=== PATIENT | male | born 1950 | race African-American/Black ===

== ENCOUNTER 2020-06-26 09:15 | Outpatient (REF) | payer MEDICARE, SELFPAY ==
[2020-06-26 10:41] LABS: Estimated Average Glucose 160 mg/dL; Hemoglobin A1c % 7.2 %
[2020-06-26 11:00] LABS: Cholesterol 130 mg/dL; HDL Cholesterol 40 mg/dL; LDL Cholesterol Calculated 72 mg/dl; Triglycerides 93 mg/dL
== END 2020-06-26 09:16 | disposition home or self-care (01) ==
LOC: HO.LAB 09:15
PROVIDERS: Visit Provider Internal Medicine
DX: E11.9 Type 2 diabetes mellitus without complications (principal)
CPT/HCPCS: 80061; 83036

== ENCOUNTER 2020-09-22 08:58 | Outpatient (REF) | payer MEDICARE, SELFPAY ==
[2020-09-22 09:58] LABS: Estimated Average Glucose 171 mg/dL; Hemoglobin A1C 192.1125 umol/L; Hemoglobin A1c % 7.6 %
[2020-09-22 10:17] LABS: Alanine Aminotransferase 38 U/L (0-40); Albumin Level 4.3 g/dL (3.5-5.0); Alkaline Phosphatase 92 U/L (39-117); Anion Gap 16 (12-20); Aspartate Amino Transferase 20 U/L (5-37); Bilirubin Total 0.9 mg/dL (0.0-1.0); Blood Urea Nitrogen 19 mg/dL (9-16); Calcium 9.5 mg/dL (8.4-10.2); Carbon Dioxide 25 mmol/L (22-29); Chloride 103 mmol/L (96-108); Cholesterol 143 mg/dL; Estimated Glomerular Filt Rate 52; Glucose Fasting 146 mg/dL (60-99); HDL Cholesterol 39 mg/dL; LDL Cholesterol Calculated 83 mg/dl; Potassium 4.5 mmol/L (3.3-5.1); Sodium 139 mmol/L (135-145); Total Protein 7.4 g/dL (6.5-8.0); Triglycerides 108 mg/dL
[2020-09-22 10:24] LABS: Creatinine Urine 110.71 mg/dL; Microalbum/Creatinine Ratio Ur 82.1 ug/mg cr
== END 2020-09-22 08:59 | disposition home or self-care (01) ==
LOC: HO.LAB 08:58
PROVIDERS: Absent Provider Internal Medicine; PCP Internal Medicine; Visit Provider Nurse Practitioner Gerontology
DX: E11.9 Type 2 diabetes mellitus without complications (principal)
CPT/HCPCS: 36415; 80053; 80061; 82043; 83036

== ENCOUNTER → 2020-09-23 10:11 | Outpatient (BNVA) | payer MEDICARE, SELFPAY | PROVIDERS: PCP Internal Medicine; Visit Provider Urology | DX: Z13.89 Encounter for screening for other disorder (principal) | CPT/HCPCS: 99212 ==

== ENCOUNTER → 2020-10-15 09:06 | Outpatient (BNVA) | payer MEDICARE, SELFPAY | PROVIDERS: PCP Internal Medicine; Visit Provider Nurse Practitioner Gerontology | DX: Z13.89 Encounter for screening for other disorder (principal) | CPT/HCPCS: Q3014 ==

== ENCOUNTER 2021-02-16 09:48 | Outpatient (REF) | payer MEDICARE, SELFPAY ==
[2021-02-16 10:28] LABS: MANUAL DIFF FLAG NO
[2021-02-16 10:31] LABS: Basophils Percent Auto 0.6 % (0-2); Eosinophils Absolute Auto 0.1 X10*3/uL (0.0-0.4); Eosinophils Percent Auto 1.8 % (0-4); Hematocrit 42.4 % (42-52); Imm Gran Abs Auto 0.01 X10*3/uL (0.00-0.03); Imm Gran Pct Auto 0.2 % (0.0-0.4); Lymphocytes Absolute Auto 1.6 X10*3/uL (1.2-4.9); Lymphocytes Percent Auto 25.3 % (20-40); Mean Corpuscular HGB Conc 30.7 g/dl (31.0-36.0); Mean Corpuscular Hemoglobin 22.8 pg (27.0-33.0); Mean Corpuscular Volume 74.5 fL (80-98); Mean Platelet Volume 9.4 fL (9.4-12.4); Monocytes Absolute Auto 0.4 X10*3/uL (0.1-1.2); Neutrophils Percent Auto 65.1 % (45-73); Platelet Count 274 X10*3/uL (160-400); Red Blood Count 5.69 X10*6/uL (4.60-5.80); Red Cell Distribution Width 15.3 % (11.0-16.0); White Blood Count 6.2 X10*3/uL (4.8-10.8)
[2021-02-16 11:00] LABS: Alanine Aminotransferase 41 U/L (0-40); Albumin Level 4.2 g/dL (3.5-5.0); Alkaline Phosphatase 95 U/L (39-117); Anion Gap 15 (12-20); Aspartate Amino Transferase 23 U/L (5-37); Bilirubin Total 0.7 mg/dL (0.0-1.0); Blood Urea Nitrogen 20 mg/dL (9-16); Calcium 9.7 mg/dL (8.4-10.2); Carbon Dioxide 22 mmol/L (22-29); Chloride 106 mmol/L (96-108); Cholesterol 128 mg/dL; Estimated Glomerular Filt Rate 52; Glucose Fasting 153 mg/dL (60-99); HDL Cholesterol 34 mg/dL; LDL Cholesterol Calculated 74 mg/dl; Potassium 4.6 mmol/L (3.3-5.1); Sodium 138 mmol/L (135-145); Total Protein 7.4 g/dL (6.5-8.0); Triglycerides 100 mg/dL
[2021-02-16 11:13] LABS: Thyroid Stimulating Hormone 1.14 uIU/mL (0.32-4.0)
[2021-02-16 11:25] LABS: Prostate Specific Antigen 0.23 ng/mL (<0.05-4.0); Prostate Specific Antigen Scr 0.23 ng/mL (<0.05-4.0)
== END 2021-02-16 09:49 | disposition home or self-care (01) ==
LOC: HO.LAB 09:48
PROVIDERS: Absent Provider Urology; PCP Internal Medicine; Referring Provider Nurse Practitioner Gerontology; Visit Provider Internal Medicine
DX: Z00.00 Encounter for general adult medical examination without abnormal findings (principal); Z12.5 Encounter for screening for malignant neoplasm of prostate; E11.9 Type 2 diabetes mellitus without complications; R35.1 Nocturia; E03.9 Hypothyroidism, unspecified; N13.8 Other obstructive and reflux uropathy; N40.1 Benign prostatic hyperplasia with lower urinary tract symptoms
CPT/HCPCS: 36415; 80053; 80061; 84153; 84443; 85025

== ENCOUNTER → 2021-02-18 10:56 | Outpatient (BNVA) | payer MEDICARE, SELFPAY | PROVIDERS: PCP Internal Medicine; Visit Provider Nurse Practitioner Gerontology | DX: E11.9 Type 2 diabetes mellitus without complications (principal); E78.5 Hyperlipidemia, unspecified; E55.9 Vitamin D deficiency, unspecified; B35.3 Tinea pedis; I10 Essential (primary) hypertension | CPT/HCPCS: 82947; 99212 ==

== ENCOUNTER → 2021-03-24 09:56 | Outpatient (BNVA) | payer MEDICARE, SELFPAY | PROVIDERS: Visit Provider Urology | DX: Z13.89 Encounter for screening for other disorder (principal) | CPT/HCPCS: Q3014 ==

== ENCOUNTER 2021-06-15 10:14 | Outpatient (REF) | payer MEDICARE, SELFPAY ==
[2021-06-15 11:03] LABS: Estimated Average Glucose 171 mg/dL; Hemoglobin A1c % 7.6 %
[2021-06-15 11:36] LABS: Cholesterol 139 mg/dL; HDL Cholesterol 40 mg/dL; LDL Cholesterol Calculated 82 mg/dl; Triglycerides 89 mg/dL
== END 2021-06-15 10:15 | disposition home or self-care (01) ==
LOC: HO.LAB 10:14
PROVIDERS: PCP Internal Medicine; Visit Provider Internal Medicine
DX: E11.9 Type 2 diabetes mellitus without complications (principal)
CPT/HCPCS: 36415; 80061; 83036

== ENCOUNTER → 2021-06-17 08:04 | Outpatient (BNVA) | payer MEDICARE, SELFPAY | PROVIDERS: PCP Internal Medicine; Visit Provider Nurse Practitioner Gerontology | DX: E11.65 Type 2 diabetes mellitus with hyperglycemia (principal); E11.21 Type 2 diabetes mellitus with diabetic nephropathy; E11.42 Type 2 diabetes mellitus with diabetic polyneuropathy; E55.9 Vitamin D deficiency, unspecified; E78.5 Hyperlipidemia, unspecified; I10 Essential (primary) hypertension | CPT/HCPCS: 82947; 99212 ==

== ENCOUNTER 2021-06-17 08:57 | Outpatient (REF) | payer MEDICARE, SELFPAY ==
[2021-06-17 10:46] LABS: Creatinine Urine 125.82 mg/dL; Microalbum/Creatinine Ratio Ur 42.9 ug/mg cr
== END 2021-06-17 08:58 | disposition home or self-care (01) ==
LOC: HO.10HDL 08:57
PROVIDERS: Visit Provider Nurse Practitioner Gerontology
DX: E11.9 Type 2 diabetes mellitus without complications (principal)
CPT/HCPCS: 82043

== ENCOUNTER 2021-07-21 06:47 | Day surgery (SDC) | payer MEDICARE, SELFPAY ==
[2021-07-15 11:43] VITALS: BMI 29.7
--- NOTE | 2021-07-20 09:13 | P.CONAN_ITS ---
Documented by User: Brittany Huff NP 07/20/21 09:14 HPI - Anesthesia Eval Consult details Narrative: 70yo M for Colonoscopy PMFSH Active Problems Active Problems: All Active Problems (Updated 07/15/21 @ 10:02 by Ericka Kwan, LEE) Bladder outlet obstruction (Acute) Bladder diverticulum (Acute) Tinea pedis (Acute) Diabetes mellitus with coincident hypertension (Acute) Erectile dysfunction associated with type 2 diabetes mellitus (Acute) Diabetes mellitus with coincident hypertension (Acute) Type 2 diabetes mellitus with diabetic polyneuropathy (Acute) Type 2 diabetes with nephropathy (Acute) Diabetes type 2, uncontrolled (Acute) Essential hypertension (Acute) Hyperlipidemia LDL goal <100 (Acute) Hypovitaminosis D (Acute) Diabetes mellitus (Acute) Past Medical History Medical History BPH (benign prostatic hyperplasia) COVID-19 vaccine series completed Diabetes mellitus Diabetes mellitus with coincident hypertension Diabetes type 2, uncontrolled Erectile dysfunction Essential hypertension Gallstones GERD (gastroesophageal reflux disease) Hiatal hernia HTN (hypertension) Hyperlipidemia LDL goal <100 Hypovitaminosis D Thalassemia trait 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 Mother No problems noted. Sister Diabetes Brother Diabetes Surgical History Surgical History H/O colonoscopy Social History Social History Household Members: Spouse Housing: House Alcohol intake: never Patient Tobacco Use Status: Never used Tobacco e-Cigarette/Vaping Use: Never Used Second Hand Smoke Exposure: No Use of substances other than those prescribed or required for medical reasons: No Advance Directives: Yes Advance Directives Information Provided: Yes Advance Directives on File: Yes Advance Directives Date on File: 10/04/04 service: Yes Current occupational status: retired Cognitive needs: No Hearing needs: No Vision needs: No Meds Allergies Allergy/AdvReac Type Severity Reaction Status Date / Time SHOAIB Inhibitors Allergy Intermediate swelling Verified 07/21/21 07:37 of tongue Home Medications Medication Instructions Recorded Confirmed Last Taken Type cholecalciferol (vitamin D3) 50 50 mcg PO DAILY 10/15/20 07/15/21 Unknown History mcg (2,000 unit) tablet aspirin 81 mg tablet,delayed 81 mg PO DAILY 07/15/21 07/15/21 07/14/21 History release folic acid 400 mcg tablet 0.4 mg PO DAILY 07/15/21 07/15/21 Unknown History Exam Exam Date and Time: July 20, 2021 0913 Height,Weight and Vital Signs: Height 5 ft 11 in Weight 96.842 kg Pertinent Lab Results Pertinent Lab Results: Laboratory Tests 02/16/21 02/16/21 10:10 10:10 WBC 6.2 Hgb 13.0 L Hct 42.4 Plt Count 274 Sodium 138 Potassium 4.6 Chloride 106 Carbon Dioxide 22 BUN 20 H Creatinine 1.36 Assessment and Plan Assessment Anesthesia Assessment: Chart Reviewed Documented by User: Kathleen Dill MD 07/21/21 08:01 [facility] Past Medical History Medical History BPH (benign prostatic hyperplasia) COVID-19 vaccine series completed Diabetes mellitus Diabetes mellitus with coincident hypertension Diabetes type 2, uncontrolled Erectile dysfunction Essential hypertension Gallstones GERD (gastroesophageal reflux disease) Hiatal hernia HTN (hypertension) Hyperlipidemia LDL goal <100 Hypovitaminosis D Thalassemia trait 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 Mother No problems noted. Sister Diabetes Brother Diabetes Family history of problems with anesthesia: No Surgical History Surgical History H/O colonoscopy History of Problems with Anesthesia: No Social History Social History Household Members: Spouse Housing: House Alcohol intake: never Patient Tobacco Use Status: Never used Tobacco e-Cigarette/Vaping Use: Never Used Second Hand Smoke Exposure: No Use of substances other than those prescribed or required for medical reasons: No Advance Directives: Yes Advance Directives Information Provided: Yes Advance Directives on File: Yes Advance Directives Date on File: 10/04/04 service: Yes Current occupational status: retired Cognitive needs: No Hearing needs: No Vision needs: No Meds Allergies Allergy/AdvReac Type Severity Reaction Status Date / Time SHOAIB Inhibitors Allergy Intermediate swelling Verified 07/21/21 07:37 of tongue Home Medications Medication Instructions Recorded Confirmed Last Taken Type cholecalciferol (vitamin D3) 50 50 mcg PO DAILY 10/15/20 07/15/21 Unknown History mcg (2,000 unit) tablet aspirin 81 mg tablet,delayed 81 mg PO DAILY 07/15/21 07/15/21 07/14/21 History release folic acid 400 mcg tablet 0.4 mg PO DAILY 07/15/21 07/15/21 Unknown History Exam Height,Weight and Vital Signs: Height 5 ft 11 in Weight 96.842 kg Vital Signs Temp Pulse Resp BP Pulse Ox 07/21/21 07:27 98.6 F 75 16 159/78 H 97 Pertinent Lab Results Pertinent Lab Results: Laboratory Tests 02/16/21 02/16/21 10:10 10:10 WBC 6.2 Hgb 13.0 L Hct 42.4 Plt Count 274 Sodium 138 Potassium 4.6 Chloride 106 Carbon Dioxide 22 BUN 20 H Creatinine 1.36 Lab Results 07/21/21 Range/Units 07:35 POC Glucose 151 H (60-115) mg/dL Airway Mallampati Class: II TM Dist: >3cm Neck ROM: Full Partial: Upper and Lower Heart: RRR Lungs: CTAB Assessment and Plan Assessment Anesthesia Assessment: Anesthesia Plan Discussed Final Anesthetic Review Family History of Problems with Anesthesia: No History of Problems with Anesthesia: No NPO: Yes ASA Class: II Final Preanesthetic Review: No Changes in Pt Med Stat, Meds/Allgs Chart Reviewed, Consent Obtained/Reviewed and Anes Risks/Benef Reviewed Patient Risk: Intermediate Procedure Risk: Low Assessment/Block/Sedation in SS: Assess/Block/Sedation-SS Anesthetic Plan Anesthetic Plan: MAC: Disposition: Standard PACU
[2021-07-21 07:27] VITALS: BP 159/78; PULSE 75; RESP 16; TEMP 37; O2SAT 97
[2021-07-21] MEDS: Lactated Ringers 1,000 ML 100 ML IVCONT (07:48)
[2021-07-21 07:53] LABS: Glucose, Whole Blood 151 mg/dL (60-115)
--- NOTE | 2021-07-21 08:14 | MHC.SHP ---
Pre-Procedural Eval Section A Date of Service: 07/21/21 The patient is an INPATIENT: No Changes since office visit: No Cold of Flu in the past 2 weeks, No New Medical Problems, No Changes in Medication and No Patient answered all questions The History & Physical has been completed within 30 days and I have reviewed it.: Yes Section B Chief Complaint: screening Allergies: Allergies Allergy/AdvReac Type Severity Reaction Status Date / Time SHOAIB Inhibitors Allergy Intermediate swelling Verified 07/21/21 07:37 of tongue Plan I have reviewed the history and physical and performed a pertinent physical examination on my patient. No changes have occurred unless specified.
[2021-07-21 08:57] VITALS: BP 116/61; PULSE 60; RESP 16; TEMP 36.4; O2SAT 97
--- NOTE | 2021-07-21 09:02 | P.BOP_ITS ---
Brief Operative Note Date of Service: 07/21/21 Pre-op diagnosis: screening Post-op diagnosis: same Procedure: colonoscopy Surgeon: Cornelio Marlow Anesthesia: MAC Was an Second Class Welder used for this Procedure?: No Estimated blood loss (mL): 0 Pathology: none sent Condition: stable Disposition: PACU
--- NOTE | 2021-07-21 09:10 | OP_ITS ---
SURGEON: Cornelio Marlow MD INDICATIONS: Colon cancer screening and prior history of adenomatous colon polyps. PREOPERATIVE DIAGNOSIS: POSTOPERATIVE DIAGNOSIS: PROCEDURE PERFORMED: Colonoscopy to the terminal ileum. ESTIMATED BLOOD LOSS: COMPLICATIONS: ANESTHESIA: ASSISTANTS: SPECIMENS: MEDICATIONS: Monitored anesthesia care. DESCRIPTION OF PROCEDURE: History and physical performed. The risks and benefits of the procedure were explained to the patient. Informed consent was obtained. The patient was placed in a left lateral decubitus position. A digital rectal exam was performed and was found to be normal. The Olympus pediatric video colonoscope was introduced into the rectum and advanced to the cecum without difficulty. The cecum was identified by transillumination, palpation, and identification of ileocecal valve. Examination was performed and the scope was removed. He tolerated the procedure well and was taken to recovery area in stable condition. FINDINGS: The terminal ileum was examined and appeared normal. The visualized colonic mucosa was within normal limits without evidence of masses or ulcers. No polyps were identified. There was some liquid stool coating the mucosa, which was washed and suctioned. There was mild sigmoid diverticulosis. Retroflexed examination was normal. IMPRESSION: Normal colonoscopy. RECOMMENDATIONS: 1. Follow up as needed. 2. Repeat colonoscopy is recommended in 10 years. This is optional based on the patient's age. MD SOSA Denis/NEPTALI / [id number]
[2021-07-21 09:17] VITALS: BP 139/74; PULSE 60; RESP 16; TEMP 36.4; O2SAT 98
== END 2021-07-21 10:00 | disposition home or self-care (01) ==
PROVIDERS: PCP Internal Medicine; Visit Provider Internal Medicine Gastroenterology
PROC: 0DJD8ZZ Inspection of Lower Intestinal Tract, Via Natural or Artificial Opening Endoscopic (ICD-10-PCS; CPT 45378; principal; 2021-07-21 08:10)
DX: Z12.11 Encounter for screening for malignant neoplasm of colon (principal); Z86.010 Personal history of colon polyps; K57.30 Diverticulosis of large intestine without perforation or abscess without bleeding; K21.9 Gastro-esophageal reflux disease without esophagitis; K44.9 Diaphragmatic hernia without obstruction or gangrene; D56.3 Thalassemia minor; I10 Essential (primary) hypertension; E11.9 Type 2 diabetes mellitus without complications; E78.00 Pure hypercholesterolemia, unspecified; N40.0 Benign prostatic hyperplasia without lower urinary tract symptoms; Z79.84 Long term (current) use of oral hypoglycemic drugs; Z79.82 Long term (current) use of aspirin; Z79.899 Other long term (current) drug therapy
CPT/HCPCS: G0105; 82947

== ENCOUNTER 2021-09-21 08:58 | Outpatient (REF) | payer MEDICARE, SELFPAY ==
[2021-09-21 10:36] LABS: Estimated Average Glucose 174 mg/dL; Hemoglobin A1c % 7.7 %
[2021-09-21 10:38] LABS: Cholesterol 128 mg/dL; Glucose Fasting 162 mg/dL (60-99); HDL Cholesterol 38 mg/dL; LDL Cholesterol Calculated 73 mg/dl; Triglycerides 85 mg/dL
== END 2021-09-21 08:59 | disposition home or self-care (01) ==
LOC: HO.LAB 08:58
PROVIDERS: PCP Internal Medicine; Visit Provider Internal Medicine
DX: Z00.00 Encounter for general adult medical examination without abnormal findings (principal); E11.65 Type 2 diabetes mellitus with hyperglycemia
CPT/HCPCS: 36415; 80061; 82947; 83036

== ENCOUNTER → 2021-09-23 13:32 | Outpatient (BNVA) | payer MEDICARE, SELFPAY | PROVIDERS: PCP Internal Medicine; Visit Provider Urology | DX: N32.0 Bladder-neck obstruction (principal); E11.69 Type 2 diabetes mellitus with other specified complication; N52.1 Erectile dysfunction due to diseases classified elsewhere | CPT/HCPCS: 51798; 99212 ==

== ENCOUNTER → 2021-11-06 07:25 | Outpatient (BNVA) | payer MEDICARE, SELFPAY | PROVIDERS: PCP Internal Medicine; Visit Provider Nurse Practitioner Gerontology | DX: E11.65 Type 2 diabetes mellitus with hyperglycemia (principal); E11.21 Type 2 diabetes mellitus with diabetic nephropathy; E11.42 Type 2 diabetes mellitus with diabetic polyneuropathy; E78.5 Hyperlipidemia, unspecified; E55.9 Vitamin D deficiency, unspecified; I10 Essential (primary) hypertension | CPT/HCPCS: 82947; 99212 ==

== ENCOUNTER 2021-12-22 09:05 | Outpatient (REF) | payer MEDICARE, SELFPAY ==
[2021-12-22 10:37] LABS: Estimated Average Glucose 174 mg/dL; Hemoglobin A1c % 7.7 %
[2021-12-22 11:00] LABS: Cholesterol 121 mg/dL; Glucose Fasting 121 mg/dL (60-99); HDL Cholesterol 34 mg/dL; LDL Cholesterol Calculated 70 mg/dl; Triglycerides 85 mg/dL
== END 2021-12-22 09:06 | disposition home or self-care (01) ==
LOC: HO.LAB 09:05
PROVIDERS: PCP Internal Medicine; Visit Provider Internal Medicine
DX: Z00.00 Encounter for general adult medical examination without abnormal findings (principal); E11.65 Type 2 diabetes mellitus with hyperglycemia
CPT/HCPCS: 36415; 80061; 82947; 83036

== ENCOUNTER 2022-03-16 08:59 | Outpatient (REF) | payer MEDICARE, SELFPAY ==
[2022-03-16 09:12] LABS: MANUAL DIFF FLAG NO
[2022-03-16 09:34] LABS: Basophils Absolute Auto 0.1 X10*3/uL (0.0-0.2); Basophils Percent Auto 0.8 % (0-2); Eosinophils Absolute Auto 0.1 X10*3/uL (0.0-0.4); Eosinophils Percent Auto 1.4 % (0-4); Hematocrit 39.9 % (42.0-52.0); Hemoglobin 12.2 g/dl (14.0-18.0); Imm Gran Abs Auto 0.02 X10*3/uL (0.00-0.03); Imm Gran Pct Auto 0.3 % (0.0-0.4); Lymphocytes Absolute Auto 1.7 X10*3/uL (1.2-4.9); Lymphocytes Percent Auto 24.8 % (20-40); Mean Corpuscular HGB Conc 30.6 g/dl (31.0-36.0); Mean Corpuscular Hemoglobin 22.9 pg (27.0-33.0); Mean Corpuscular Volume 74.9 fL (80.0-98.0); Mean Platelet Volume 9.7 fL (9.4-12.4); Monocytes Absolute Auto 0.5 X10*3/uL (0.1-1.2); Monocytes Percent Auto 7.7 % (2-11); Neutrophils Absolute Auto 4.3 x10*3/uL (2.0-8.3); Platelet Count 300 X10*3/uL (160-400); Red Blood Count 5.33 X10*6/uL (4.60-5.80); Red Cell Distribution Width 15.3 % (11.0-16.0); White Blood Count 6.6 X10*3/uL (4.8-10.8)
[2022-03-16 10:00] LABS: Alanine Aminotransferase 26 U/L (0-40); Albumin Level 4.3 g/dL (3.5-5.0); Alkaline Phosphatase 90 U/L (39-117); Anion Gap 16 (12-20); Aspartate Amino Transferase 19 U/L (5-37); Bilirubin Total 0.8 mg/dL (0.0-1.0); Blood Urea Nitrogen 19 mg/dL (9-16); Calcium 9.6 mg/dL (8.4-10.2); Carbon Dioxide 22 mmol/L (22-29); Chloride 106 mmol/L (96-108); Estimated Glomerular Filt Rate 54; Glucose Fasting 118 mg/dL (60-99); Potassium 4.3 mmol/L (3.3-5.1); Sodium 140 mmol/L (135-145); Total Protein 7.1 g/dL (6.5-8.0)
[2022-03-16 10:21] LABS: Prostate Specific Antigen Scr 0.25 ng/mL (<0.05-4.0)
[2022-03-16 10:27] LABS: Vitamin D 25-OH Total 34.9 ng/mL (>30)
[2022-03-16 10:38] LABS: Creatinine Urine 142.08 mg/dL; Microalbum/Creatinine Ratio Ur 28.1 ug/mg cr
== END 2022-03-16 09:00 | disposition home or self-care (01) ==
LOC: HO.LAB 08:59
PROVIDERS: Absent Provider Nurse Practitioner Gerontology; PCP Internal Medicine; Visit Provider Internal Medicine
DX: Z00.00 Encounter for general adult medical examination without abnormal findings (principal); Z12.5 Encounter for screening for malignant neoplasm of prostate; Z13.0 Encounter for screening for diseases of the blood and blood-forming organs and certain disorders involving the immune mechanism; E66.01 Morbid (severe) obesity due to excess calories; E11.42 Type 2 diabetes mellitus with diabetic polyneuropathy; E55.9 Vitamin D deficiency, unspecified; E11.69 Type 2 diabetes mellitus with other specified complication
CPT/HCPCS: 36415; 80053; 82043; 82306; 84153; 85025

== ENCOUNTER → 2022-04-02 09:57 | Outpatient (BNVA) | payer MEDICARE, SELFPAY | PROVIDERS: PCP Internal Medicine; Visit Provider Urology | DX: N32.0 Bladder-neck obstruction (principal); N32.3 Diverticulum of bladder; N52.9 Male erectile dysfunction, unspecified; R35.1 Nocturia; Z79.899 Other long term (current) drug therapy | CPT/HCPCS: Q3014 ==

== ENCOUNTER 2022-06-29 08:56 | Outpatient (REF) | payer MEDICARE, SELFPAY ==
[2022-06-29 10:14] LABS: Estimated Average Glucose 192 mg/dL; Hemoglobin A1c % 8.3 %
[2022-06-29 10:46] LABS: Alanine Aminotransferase 40 U/L (0-40); Albumin Level 4.2 g/dL (3.5-5.0); Alkaline Phosphatase 100 U/L (39-117); Anion Gap 14 (12-20); Aspartate Amino Transferase 23 U/L (5-37); Bilirubin Total 0.7 mg/dL (0.0-1.0); Blood Urea Nitrogen 19 mg/dL (9-16); Calcium 9.5 mg/dL (8.4-10.2); Carbon Dioxide 25 mmol/L (22-29); Chloride 107 mmol/L (96-108); Cholesterol 130 mg/dL; Estimated Glomerular Filt Rate 58; Glucose Fasting 126 mg/dL (60-99); HDL Cholesterol 39 mg/dL; LDL Cholesterol Calculated 76 mg/dl; Potassium 4.5 mmol/L (3.3-5.1); Sodium 141 mmol/L (135-145); Triglycerides 76 mg/dL
== END 2022-06-29 08:57 | disposition home or self-care (01) ==
LOC: HO.LAB 08:56
PROVIDERS: PCP Internal Medicine; Visit Provider Internal Medicine
DX: Z00.00 Encounter for general adult medical examination without abnormal findings (principal); E11.9 Type 2 diabetes mellitus without complications; E78.5 Hyperlipidemia, unspecified
CPT/HCPCS: 36415; 80053; 80061; 83036

== ENCOUNTER 2022-09-28 09:04 | Outpatient (REF) | payer MEDICARE, SELFPAY ==
[2022-09-28 10:20] LABS: Estimated Average Glucose 186 mg/dL; Hemoglobin A1c % 8.1 %
[2022-09-28 10:44] LABS: Glucose Fasting 175 mg/dL (60-99)
== END 2022-09-28 09:05 | disposition home or self-care (01) ==
LOC: HO.LAB 09:04
PROVIDERS: PCP Internal Medicine; Visit Provider Internal Medicine
DX: E11.65 Type 2 diabetes mellitus with hyperglycemia (principal)
CPT/HCPCS: 36415; 82947; 83036

== ENCOUNTER → 2022-10-07 11:32 | Outpatient (BNVA) | payer MEDICARE, SELFPAY | PROVIDERS: PCP Internal Medicine; Visit Provider Urology | DX: N32.3 Diverticulum of bladder (principal); N32.0 Bladder-neck obstruction | CPT/HCPCS: 51798; 99212 ==

== ENCOUNTER 2022-12-30 09:26 | Outpatient (REF) | payer MEDICARE, SELFPAY ==
[2022-12-30 11:17] LABS: Cholesterol 121 mg/dL; Glucose Fasting 177 mg/dL (60-99); HDL Cholesterol 34 mg/dL; LDL Cholesterol Calculated 73 mg/dl; Triglycerides 70 mg/dL
[2022-12-30 11:23] LABS: Estimated Average Glucose 189 mg/dL; Hemoglobin A1c % 8.2 %
== END 2022-12-30 09:27 | disposition home or self-care (01) ==
LOC: HO.LAB 09:26
PROVIDERS: PCP Internal Medicine; Visit Provider Internal Medicine
DX: R73.9 Hyperglycemia, unspecified (principal); E78.5 Hyperlipidemia, unspecified
CPT/HCPCS: 36415; 80061; 82947; 83036

== ENCOUNTER 2023-04-12 08:36 | Outpatient (AMB) | payer MEDICARE, SELFPAY ==
--- NOTE | 2023-04-12 08:39 | A.OFFVIS_ITS ---
Intake Intake Visit Reasons: 6M PVR Intake Note: Patient is present for Follow Up PVR Urology Med: Finasteride, Tamsulosin, Sildenafil Antibiotic Allergy: None Blood Thinner: Aspirn Pharmacy: [facility] PVR: 0ml Allergies SHOAIB Inhibitors Allergy (Intermediate, Verified 04/12/23 08:40) swelling of tongue Medication List - Last Reconciled 04/12/23 by Tray Farias MD amlodipine 10 mg PO DAILY aspirin 81 mg PO DAILY atorvastatin 20 mg PO DAILY blood sugar diagnostic (FreeStyle Lite Strips) 1 strip miscellaneous BID-TID cholecalciferol (vitamin D3) 50 mcg PO DAILY finasteride 5 mg PO DAILY 90 days folic acid 0.4 mg PO DAILY lancets (FreeStyle Lancets) three times a day losartan 50 mg PO DAILY metformin ER 1,000 mg (2 x 500 mg) PO BID omeprazole 20 mg PO DAILY repaglinide 1-2 tab before lunch, 1-3 tabs before dinner PO once; as directed 90 days tadalafil 5 mg PO DAILY 90 days tamsulosin 0.4 mg PO BEDTIME 90 days terbinafine HCl 1% (Antifungal (terbinafine)) 1 appl topical BID HPI HPI Comments History of Present Illness Details Ramin PEREIRA is a very pleasant male. They are a patient of Dr Casas. . He is seen for the following urologic conditions - lower urinary tract symptoms - erectile dysfunction PVR 0 Negative microscopic hematuria Recommend finasteride Tuesday, Tuesday, Tuesday Switch from sildenafil to daily tadalafil 5 mg Have previously recommended [facility] laser prostatectomy with bladder diverticula Lower Urinary Tract Symptoms: Did well with combination therapy - finasteride, tamsulosin PSA 02/25 0.2, 03/29 0.3 Will continue Nocturia reduced from 1-2 times from 3-4. Current visit is for further evaluation of, lower urinary tract symptoms, predominate obstructive symptoms. Prostate Symptom Score Moderate (9-19), Bother 3. Symptoms include incomplete emptying, weak stream, nocturia (>2), and are improving Erectile dysfunction in setting of diabetes Switch to daily tadalafil Responsive to sildenafil Associated diabetes, and dyslipidemia, and hypertension HBA1c - 12/28 8.2% Microscopic Hematuria: Microscopic hematuria was diagnosed during routine UA - probable UTI. They are here for further evaluation. Relevant medical history for prior , tobacco use and UTI's Radiographic imagin/20 , CT KUB - multiple bladder diverticula, enlarged prostate, cyst on right kidney 2 cm. 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 Mother No problems noted. Sister Diabetes Brother Diabetes Social History Household Members: Spouse Housing: House Alcohol intake: current Alcohol intake frequency: holidays/special occasions only Patient Tobacco Use Status: Never used Tobacco e-Cigarette/Vaping Use: Never Used Second Hand Smoke Exposure: No Advance Directives Date on File: 10/04/04 service: Yes Current occupational status: retired Cognitive needs: No Hearing needs: No Vision needs: Yes Review of Systems Const Denies chills and Denies fever(s) Card Reports no additional complaints and Denies syncope Resp Denies cough GI Denies abdominal pain and Denies heartburn Reports as per HPI and Denies change in libido Neuro Denies syncope Psych Denies change in libido Endo Denies change in libido Physical Exam Const General: cooperative, healthy appearing, comfortable and no acute distress Orientation/consciousness: patient oriented x3 HEENT Face and sinus: Yes normal facial exam Mouth: moist mucous membranes Neck Neck: Yes normal visual inspection, Yes full ROM and Yes trachea midline Chest Chest palpation & inspection: normal inspection of the chest Resp Effort & Inspection: normal respiratory effort, able to speak in complete sentences and no respiratory distress GI Inspection: Yes normal to inspection Back/Spine/Pelvis Cervical Spine: normal cervical lordosis Thoracic/Lumbar Spine: thoracic and lumbar spine normal to inspection Skin General skin exam: no rashes or lesions noted Neuro General: patient oriented x3, gait normal, tone normal and moves all extremities Extrem General: Yes normal to inspection and Yes capillary refill normal Office Procedures Post Void Residual Post Residual Void Post Void Residual (PVR): 0 [id number]-[id number] Void Residual by ultrasound Results AMB Urinalysis, Automated UA Leukoctes 0 Sandhya/uL Last Edit by Jeniffer Morris [facility] on 04/12/23 08:54 UA Nitrite Negative Last Edit by Jeniffer Morris [facility] on 04/12/23 08:54 UA Urobilinogen 0.2 mg/dL Last Edit by Jeniffer Morris [facility] on 04/12/23 08:5 4 UA Protein 15 mg/dL Last Edit by Jeniffer Morris [facility] on 04/12/23 08:54 UA pH 5.5 Last Edit by Jeniffer Morris [facility] on 04/12/23 08:54 UA Blood 0 Sudeep/uL Last Edit by Jeniffer Morris [facility] on 04/12/23 08:54 UA Specific [place] 1.015 Last Edit by Jeniffer Morris [facility] on 04/12/23 08: 54 UA Ketone Negative Last Edit by Jeniffer Morris [facility] on 04/12/23 08:54 UA Bilirubin 1 mg/dL Last Edit by Jeniffer Mroris [facility] on 04/12/23 08:54 UA Glucose 0 mg/dL Last Edit by Jeniffer Morris [facility] on 04/12/23 08:54 Assessment & Plan Assessment & Plan (1) Bladder outlet obstruction: Code(s): N32.0 - Bladder-neck obstruction (2) Erectile dysfunction associated with type 2 diabetes mellitus: Code(s): E11.69 - Type 2 diabetes mellitus with other specified complication; N52.1 - Erectile dysfunction due to diseases classified elsewhere Plan Switch to finasteride Tuesday, Tuesday, Tuesday Switch to daily tadalafil for bladder benefits Orders: Orders AMB Post Void Residual by ultrasound Today N32.0 - Bladder-neck obstruction AMB Urinalysis Automated Today Z13.9 - Encounter for screening, unspecified Medications: New tadalafil 5 mg PO DAILY 90 days 90 tabs 1RF sexual activity E11.69 - Type 2 diabetes mellitus with other specified complication, N52.1 - Erectile dysfunctio n due to diseases classified elsewhere Refilled finasteride 5 mg PO DAILY 90 tabs 1RF 90 days N32.0 - Bladder-neck obstruction Discontinued sildenafil administer 60 minutes before intended activity Discontinued Reason: Patient no longer taking 100 mg PO DAILY 30 days 30 tabs 1RF sexual activity N52.9 - Male erectile dysfunction, unspecified Patient Instructions: Imaging studies, laboratory and physical exam results were discussed and reviewed in detail. No major barriers to patient understanding were identified. An opportunity to ask questions regarding the treatment plan was provided. All questions were answered. The patient expressed understanding and agreement with the above treatment plan. The patient is aware they should contact our office by phone for worsening of their current condition or the appearance of new urologic symptoms. Compliance is encouraged with any medications and followup testing that is ordered. It is a privilege to participate in the urologic care of your patient. If you have any questions or concerns regarding treatment for the above conditions, or other urologic issues, please do not hesitate to contact me. The office telephone contact is [phone]. This note is constructed using voice recognition software. While every effort has been made to ensure accuracy city engineer errors may have been included. Yours sincerely, Dr Tray Farias MD, [facility] - Urology Providers of Expert, Compassionate Care for the Genitourinary System Coding Level of Care Code Est Pt Level 4 (75341) Diagnoses Bladder outlet obstruction N32.0 Erectile dysfunction associated with type 2 diabetes mellitus E11.69; N52.1 CPT Codes Post Residual Void - PVR CPT Code: 22125-Fjja Void Residual by ultrasound ([id number])
== END 2023-04-12 09:01 | disposition home or self-care (01) ==
PROVIDERS: PCP Internal Medicine; Visit Provider Urology
DX: N32.0 Bladder-neck obstruction (principal); E11.69 Type 2 diabetes mellitus with other specified complication; N52.1 Erectile dysfunction due to diseases classified elsewhere; Z13.9 Encounter for screening, unspecified
CPT/HCPCS: 99214

== ENCOUNTER → 2023-04-12 08:36 | Outpatient (BNVA) | payer MEDICARE, SELFPAY | PROVIDERS: Visit Provider Urology | DX: N32.0 Bladder-neck obstruction (principal); E11.69 Type 2 diabetes mellitus with other specified complication; N52.1 Erectile dysfunction due to diseases classified elsewhere | CPT/HCPCS: 51798; 81003; 99212 ==

== ENCOUNTER 2023-04-19 09:22 | Outpatient (REF) | payer MEDICARE, SELFPAY ==
[2023-04-19 10:35] LABS: Estimated Average Glucose 157 mg/dL; Hemoglobin A1c % 7.1 % (<6.0)
[2023-04-19 10:50] LABS: Cholesterol 112 mg/dL (<200); Glucose Fasting 109 mg/dL (60-99); HDL Cholesterol 41 mg/dL (>40); LDL Cholesterol Calculated 58 mg/dL (<100); Triglycerides 68 mg/dL (<150)
== END 2023-04-19 09:23 | disposition home or self-care (01) ==
LOC: HO.LAB 09:22
PROVIDERS: PCP Internal Medicine; Visit Provider Internal Medicine
DX: R73.9 Hyperglycemia, unspecified (principal); E78.5 Hyperlipidemia, unspecified
CPT/HCPCS: 36415; 80061; 82947; 83036

== ENCOUNTER 2023-04-22 09:14 | Outpatient (AMB) | payer MEDICARE, SELFPAY ==
[2023-04-22 09:21] VITALS: BP 138/56; PULSE 65; O2SAT 98; BMI 28.7
--- NOTE | 2023-04-22 09:21 | A.OFFPC_ITS ---
Vital Signs 04/22/23 09:21 Height 5 ft 11 in Weight 206 lb BMI 28.7 BP 138/56 L Blood Pressure Location Lt brachial Position Sitting Pulse 65 Pulse Source Pulse Oximeter Pulse Oximetry (%) 98 Oxygen Delivery Method Room Air Intake Visit Reasons: 3mth f/u - CMP and Microalbumin needed Supervisor Microbiology Technologists: Present Accompanied by: Spouse Allergies SHOAIB Inhibitors Allergy (Intermediate, Verified 04/22/23 09:21) swelling of tongue Medication List - Last Reconciled 04/22/23 by Polo Casas MD amlodipine 10 mg PO DAILY aspirin 81 mg PO DAILY atorvastatin 20 mg PO DAILY blood sugar diagnostic (FreeStyle Lite Strips) 1 strip miscellaneous BID-TID cholecalciferol (vitamin D3) 50 mcg PO DAILY finasteride 5 mg PO DAILY 90 days folic acid 0.4 mg PO DAILY lancets (FreeStyle Lancets) three times a day losartan 50 mg PO DAILY metformin ER 1,000 mg (2 x 500 mg) PO BID omeprazole 20 mg PO DAILY repaglinide 1-2 tab before lunch, 1-3 tabs before dinner PO once; as directed 90 days tadalafil 5 mg PO DAILY 90 days tamsulosin 0.4 mg PO BEDTIME 90 days terbinafine HCl 1% (Antifungal (terbinafine)) 1 appl topical BID Tobacco use date assessed: 10/04/22 Fall risk assessment: No Falls in past year Last assessed Fall Risk: 04/22/23 Dental Screening Dental Screen Date: 04/22/23 Did you have a dental visit in the last 12 months?: Yes Did you have a dental problem in the last 6 months where you did not have access to dental care?: No Was dental information given to patient?: Patient has dentist HPI 3mth f/u - CMP and Microalbumin needed HPI Details HTN hyperlipidemia and DM; stable on rx; doing well [facility] Medical History COVID-19 vaccine series completed HTN (hypertension) Thalassemia trait Hiatal hernia GERD (gastroesophageal reflux disease) Diabetes mellitus with coincident hypertension 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 Mother No problems noted. Sister Diabetes Brother Diabetes Social History Household Members: Spouse Housing: House Alcohol intake: current Alcohol intake frequency: holidays/special occasions only Patient Tobacco Use Status: Never used Tobacco e-Cigarette/Vaping Use: Never Used Second Hand Smoke Exposure: No Advance Directives Date on File: 10/04/04 service: Yes Current occupational status: retired Cognitive needs: No Hearing needs: No Vision needs: Yes Questionnaire PHQ-9 Over the last 2 weeks, how often have you been bothered by any of the following problems? 1. Little interest or pleasure in doing things: not at all 2. Feeling down, depressed, or hopeless: not at all 3. Trouble falling or staying asleep, or sleeping too much: not at all 4. Feeling tired or having little energy: not at all 5. Poor appetite or overeating: not at all 6. Feeling bad about yourself - or that you are a failure or have let yourself or your family down: not at all 7. Trouble concentrating on things, such as reading the newspaper or watching television: not at all 8. Moving or speaking so slowly that other people could have noticed. Or the opposite - being so fidgety or restless that you have been moving around a lot more than usual: not at all 9. Thoughts that you would be better off or of hurting yourself in some way: not at all Total score: 0 Depression Screening Interpretation: Negative 19808 - PHQ-9 Billing: Yes Source: Developed by Drs. Blake Thomas, Audelia Caal, Alexei Johnson and colleagues, with an educational alex from [employer]. Thrive Questionnaire Date Thrive assessed: 10/04/22 AUDIT C Alcohol Use Questionnaire (AUDIT-C) 1. How often do you have a drink containing alcohol?: Monthly or less 2. How many drinks containing alcohol do you have on a typical day when you are drinking?: 1 or 2 3. How often do you have six or more drinks on one occasion?: Never Total Score: 1 Score Reviewed/Action Taken: Yes DREW-7 AMB Questionnaire DREW-7 Date DREW - 7 assessed: 10/04/22 Source: Developed by Drs. Blake Thomas, Audelia Caal, Alexei Johnson and colleagues, with an educational alex from [employer]. Review of Systems Const Denies chills, Denies headache(s) and Denies weight loss ENT Denies headache(s) Card Denies chest pain, Denies syncope, Denies irregular heart rhythm and Denies dyspnea Resp Denies chest congestion, Denies cough and Denies dyspnea GI Denies abdominal pain, Denies change in stool character, Denies nausea and Denies vomiting Musc Denies deformity and Denies joint swelling Neuro Denies syncope and Denies headache(s) Physical exam (Primary Care) Vital Signs: Last Vital Signs Pulse 65 04/22/23 09:21 BP 138/56 L 04/22/23 09:21 Pulse Ox 98 04/22/23 09:21 Oxygen Delivery Method Room Air 04/22/23 09:21 BMI result Body Mass Index 28.7 Tobacco/Smoking Status: Tobacco use Status Tobacco use date assessed 10/04/22 04/22/23 09:22 Patient Tobacco Use Status Never used Tobacco 04/22/23 09:22 e-Cigarette/Vaping Use Never Used 04/22/23 09:22 PHQ-9: PHQ-9 Score PHQ-9: Total score 0 04/22/23 09:22 Depression Screening Interpretation: Negative Thrive Assessment: Date of Thrive Assessment Date Thrive assessed 10/04/22 04/22/23 09:22 Const General: cooperative, comfortable, no acute distress and alert Neck Neck: Yes no lymphadenopathy Thyroid: Thyroid normal Resp Effort & Inspection: normal respiratory effort Auscultation: clear to auscultation bilaterally Percussion: percussion normal Cardio Jugular venous distension: no JVD Palpation: normal PMI Rate: regular rate Rhythm: regular rhythm Heart sounds: S1 normal heart sound present and S2 normal heart sound present GI Inspection: Yes normal to inspection Palpation (GI): No hepatosplenomegaly present Skin General skin exam: no rashes or lesions noted Extrem General: Yes no clubbing, cyanosis or edema Assessment and Plan Assessment & Plan (1) Diabetes mellitus with coincident hypertension: Code(s): E11.9 - Type 2 diabetes mellitus without complications; I10 - Essential (primary) hypertension Plan: stable; same rx (2) Essential hypertension: Code(s): I10 - Essential (primary) hypertension Plan: stable; same rx (3) Hypovitaminosis D: Code(s): E55.9 - Vitamin D deficiency, unspecified Plan: stable same rx Orders: Orders Hemoglobin A1c Today R73.9 - Hyperglycemia, unspecified Lipid Panel Today E78.5 - Hyperlipidemia, unspecified Glucose Fasting Today R73.9 - Hyperglycemia, unspecified Microalbumin, Random (w Creat) Today E11.69 - Type 2 diabetes mellitus with other specified complication, E66.01 - Morbid (severe) obesity due to excess calories Medications: Refilled blood sugar diagnostic (FreeStyle Lite Strips) 1 strip miscellaneous BID-TID 300 strips 3RF E11.9 - Type 2 diabetes mellitus without complications Coding Level of Care Code Est Pt Level 4 (02872) Diagnoses Diabetes mellitus with coincident hypertension E11.9; I10 Essential hypertension I10 Hypovitaminosis D E55.9
== END 2023-04-22 09:51 | disposition home or self-care (01) ==
PROVIDERS: PCP Internal Medicine; Visit Provider Internal Medicine
DX: E11.9 Type 2 diabetes mellitus without complications (principal); I10 Essential (primary) hypertension; E55.9 Vitamin D deficiency, unspecified
CPT/HCPCS: 99214

== ENCOUNTER 2023-07-25 09:20 | Outpatient (REF) | payer MEDICARE, SELFPAY ==
[2023-07-25 09:42] LABS: Estimated Average Glucose 160 mg/dL; Hemoglobin A1c % 7.2 % (<6.0)
[2023-07-25 10:05] LABS: Alanine Aminotransferase 27 U/L (0-40); Albumin Level 4.1 g/dL (3.5-5.0); Alkaline Phosphatase 93 U/L (39-117); Anion Gap 12 (12-20); Aspartate Amino Transferase 19 U/L (5-37); Bilirubin Total 0.8 mg/dL (0.0-1.0); Blood Urea Nitrogen 23 mg/dL (9-16); Calcium 10.1 mg/dL (8.4-10.2); Carbon Dioxide 23 mmol/L (22-29); Chloride 109 mmol/L (96-108); Cholesterol 125 mg/dL (<200); Estimated Glomerular Filt Rate 54; Glucose Fasting 151 mg/dL (60-99); Glucose Random 151 mg/dL (60-115); HDL Cholesterol 41 mg/dL (>40); LDL Cholesterol Calculated 68 mg/dL (<100); Potassium 4.7 mmol/L (3.3-5.1); Sodium 139 mmol/L (135-145); Total Protein 7.5 g/dL (6.5-8.0); Triglycerides 83 mg/dL (<150)
[2023-07-25 10:33] LABS: Microalbum/Creatinine Ratio Ur 51.3 ug/mg cr (<30)
== END 2023-07-25 09:21 | disposition home or self-care (01) ==
LOC: HO.LAB 09:20
PROVIDERS: PCP Internal Medicine; Visit Provider Internal Medicine
DX: E11.65 Type 2 diabetes mellitus with hyperglycemia (principal); E11.69 Type 2 diabetes mellitus with other specified complication; I10 Essential (primary) hypertension; E66.01 Morbid (severe) obesity due to excess calories; E78.5 Hyperlipidemia, unspecified
CPT/HCPCS: 36415; 80053; 80061; 82043; 82570; 83036

== ENCOUNTER 2023-07-27 08:12 | Outpatient (AMB) | payer MEDICARE, SELFPAY ==
[2023-07-27 08:31] VITALS: BP 142/60; PULSE 60; O2SAT 100; BMI 28.4
--- NOTE | 2023-07-27 08:31 | MHC.PC.OV ---
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 Director Of Undergraduate Admissions: Not Required per policy Accompanied by: Self / Same As Patient Allergies SHOABI Inhibitors Allergy (Intermediate, Verified 07/27/23 08:32) swelling of tongue Medication List - Last Reconciled 07/27/23 by Polo Casas MD amlodipine 10 mg PO DAILY aspirin 81 mg PO DAILY atorvastatin 20 mg PO DAILY blood sugar diagnostic (FreeStyle Lite Strips) 1 strip miscellaneous BID-TID cholecalciferol (vitamin D3) 50 mcg PO DAILY finasteride 5 mg PO DAILY 90 days folic acid 0.4 mg PO DAILY lancets (FreeStyle Lancets) three times a day losartan 50 mg PO DAILY metformin ER 1,000 mg (2 x 500 mg) PO BID omeprazole 20 mg PO DAILY repaglinide 1-2 tab before lunch, 1-3 tabs before dinner PO once; as directed 90 days tadalafil 5 mg PO DAILY 90 days tamsulosin 0.4 mg PO BEDTIME 90 days terbinafine HCl 1% (Antifungal (terbinafine)) 1 appl topical BID Tobacco use date assessed: 10/04/22 Fall risk assessment: No Falls in past year Last assessed Fall Risk: 07/27/23 Dental Screening Dental Screen Date: 07/27/23 Did you have a dental visit in the last 12 months?: Yes Did you have a dental problem in the last 6 months where you did not have access to dental care?: No Was dental information given to patient?: Patient has dentist HPI 3mth f/u HPI Details HTN hyperlip and DM; stable; doing well [facility] Medical History COVID-19 vaccine series completed HTN (hypertension) Thalassemia trait Hiatal hernia GERD (gastroesophageal reflux disease) Diabetes mellitus with coincident hypertension 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 Mother No problems noted. Sister Diabetes Brother Diabetes Social History Household Members: Spouse Housing: House Alcohol intake: current Alcohol intake frequency: holidays/special occasions only Patient Tobacco Use Status: Never used Tobacco e-Cigarette/Vaping Use: Never Used Second Hand Smoke Exposure: No Advance Directives Date on File: 10/04/04 service: Yes Current occupational status: retired Cognitive needs: No Hearing needs: No Vision needs: Yes Questionnaire Thrive Questionnaire Date Thrive assessed: 10/04/22 DREW-7 AMB Questionnaire DREW-7 Date DREW - 7 assessed: 10/04/22 Source: Developed by Drs. Blake Thomas, Audelia Caal, Alexei Johnson and colleagues, with an educational alex from [employer]. Review of Systems Const Denies chills, Denies headache(s) and Denies weight loss ENT Denies headache(s) Card Denies chest pain, Denies syncope, Denies irregular heart rhythm and Denies dyspnea Resp Denies chest congestion, Denies cough and Denies dyspnea GI Denies abdominal pain, Denies change in stool character, Denies nausea and Denies vomiting Musc Denies deformity and Denies joint swelling Neuro Denies syncope and Denies headache(s) Physical exam (Primary Care) Vital Signs: Last Vital Signs Pulse 60 07/27/23 08:31 BP 142/60 H 07/27/23 08:31 Pulse Ox 100 07/27/23 08:31 Oxygen Delivery Method Room Air 07/27/23 08:31 BMI result Body Mass Index 28.4 Tobacco/Smoking Status: Tobacco use Status Tobacco use date assessed 10/04/22 07/27/23 08:32 Patient Tobacco Use Status Never used Tobacco 07/27/23 08:32 e-Cigarette/Vaping Use Never Used 07/27/23 08:32 Thrive Assessment: Date of Thrive Assessment Date Thrive assessed 10/04/22 07/27/23 08:32 Const General: cooperative, comfortable, no acute distress and alert Neck Neck: Yes no lymphadenopathy Thyroid: Thyroid normal Resp Effort & Inspection: normal respiratory effort Auscultation: clear to auscultation bilaterally Percussion: percussion normal Cardio Jugular venous distension: no JVD Palpation: normal PMI Rate: regular rate Rhythm: regular rhythm Heart sounds: S1 normal heart sound present and S2 normal heart sound present GI Inspection: Yes normal to inspection Palpation (GI): No hepatosplenomegaly present Skin General skin exam: no rashes or lesions noted Extrem General: Yes no clubbing, cyanosis or edema Assessment and Plan Assessment & Plan (1) Diabetes mellitus with coincident hypertension: Code(s): E11.9 - Type 2 diabetes mellitus without complications; I10 - Essential (primary) hypertension Plan: stable; same rx (2) Essential hypertension: Code(s): I10 - Essential (primary) hypertension Plan: stable; same rx (3) Hyperlipidemia LDL goal <100: Code(s): E78.5 - Hyperlipidemia, unspecified Plan: stable; same rx Orders: Orders Comprehensive Met. Panel 07/25/23 E11.9 - Type 2 diabetes mellitus without complications, I10 - Essential (primary) hypertension Lipid Panel Today E78.5 - Hyperlipidemia, unspecified Glucose Fasting Today R73.9 - Hyperglycemia, unspecified Hemoglobin A1c Today R73.9 - Hyperglycemia, unspecified Medications: Refilled amlodipine 10 mg PO DAILY 90 tabs 1RF I10 - Essential (primary) hypertension losartan 50 mg PO DAILY 90 tabs 1RF metformin ER 1,000 mg (2 x 500 mg) PO BID 360 tabs 1RF E11.9 - Type 2 diabetes mellitus without complications omeprazole 20 mg PO DAILY 90 caps 5RF atorvastatin 20 mg PO DAILY 90 tabs 1RF E78.5 - Hyperlipidemia, unspecified Coding Level of Care Code Est Pt Level 4 (20565) Diagnoses Diabetes mellitus with coincident hypertension E11.9; I10 Essential hypertension I10 Hyperlipidemia LDL goal <100 E78.5
== END 2023-07-27 08:56 | disposition home or self-care (01) ==
PROVIDERS: PCP Internal Medicine; Visit Provider Internal Medicine
DX: E11.65 Type 2 diabetes mellitus with hyperglycemia (principal); I10 Essential (primary) hypertension; E78.5 Hyperlipidemia, unspecified
CPT/HCPCS: 99214

== ENCOUNTER 2023-10-14 08:19 | Outpatient (AMB) | payer MEDICARE, SELFPAY ==
--- NOTE | 2023-10-14 08:29 | MHC.OFFVIS ---
Intake Intake Visit Reasons: 6m/PVR(Med Review) Intake Note: Patient is Present for Follow Up Urology Medication: Finasteride, Tadalafil, Tamsulosin Antibiotic Allergies: None Blood Thinners: Aspirin Confirmed Pharmacy: For custodial medication- [facility] PVR:422 Allergies SHOAIB Inhibitors Allergy (Intermediate, Verified 10/14/23 08:33) swelling of tongue HPI HPI Comments History of Present Illness Details Ramin PEREIRA is a very pleasant male. They are a patient of Dr Casas. . He is seen for the following urologic conditions - lower urinary tract symptoms - erectile dysfunction Prior PVR 0 - Current 400 Negative microscopic hematuria Known large bladder diverticulum Recommend finasteride Tuesday, Tuesday, Tuesday Continue daily tadalafil 5 mg Have previously recommended GreenLight laser prostatectomy with bladder diverticula Lower Urinary Tract Symptoms: Did well with combination therapy - finasteride, tamsulosin PSA 02/25 0.2, 03/29 0.3 Will continue Nocturia reduced from 1-2 times from 3-4. Current visit is for further evaluation of, lower urinary tract symptoms, predominate obstructive symptoms. Prostate Symptom Score Moderate (9-19), Bother 3. Symptoms include incomplete emptying, weak stream, nocturia (>2), and are improving Erectile dysfunction in setting of diabetes Switch to daily tadalafil Responsive to sildenafil Associated diabetes, and dyslipidemia, and hypertension HBA1c - 12/28 8.2% Microscopic Hematuria: Microscopic hematuria was diagnosed during routine UA - probable UTI. They are here for further evaluation. Relevant medical history for prior , tobacco use and UTI's Radiographic imagin/20 , CT KUB - multiple bladder diverticula, enlarged prostate, cyst on right kidney 2 cm. 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 Mother No problems noted. Sister Diabetes Brother Diabetes Social History Household Members: Spouse Housing: House Alcohol intake: current Alcohol intake frequency: holidays/special occasions only Patient Tobacco Use Status: Never used Tobacco e-Cigarette/Vaping Use: Never Used Second Hand Smoke Exposure: No Advance Directives Date on File: 10/04/04 service: Yes Current occupational status: retired Cognitive needs: No Hearing needs: No Vision needs: Yes Review of Systems Const Denies chills and Denies fever(s) Card Reports no additional complaints and Denies syncope Resp Denies cough GI Denies abdominal pain and Denies heartburn Reports as per HPI and Denies change in libido Neuro Denies syncope Psych Denies change in libido Endo Denies change in libido Physical Exam Const General: cooperative, healthy appearing, comfortable and no acute distress Orientation/consciousness: patient oriented x3 HEENT Face and sinus: Yes normal facial exam Mouth: moist mucous membranes Neck Neck: Yes normal visual inspection, Yes full ROM and Yes trachea midline Chest Chest palpation & inspection: normal inspection of the chest Resp Effort & Inspection: normal respiratory effort, able to speak in complete sentences and no respiratory distress GI Inspection: Yes normal to inspection Back/Spine/Pelvis Cervical Spine: normal cervical lordosis Thoracic/Lumbar Spine: thoracic and lumbar spine normal to inspection Skin General skin exam: no rashes or lesions noted Neuro General: patient oriented x3, gait normal, tone normal and moves all extremities Extrem General: Yes normal to inspection and Yes capillary refill normal Assessment & Plan Assessment & Plan (1) Bladder diverticulum: Code(s): N32.3 - Diverticulum of bladder (2) Bladder outlet obstruction: Code(s): N32.0 - Bladder-neck obstruction (3) Urinary retention with incomplete bladder emptying: Code(s): R33.9 - Retention of urine, unspecified Plan Six-month follow-up PVR Orders: Orders AMB Post Void Residual by ultrasound Today N32.0 - Bladder-neck obstruction Patient Instructions: Imaging studies, laboratory and physical exam results were discussed and reviewed in detail. No major barriers to patient understanding were identified. An opportunity to ask questions regarding the treatment plan was provided. All questions were answered. The patient expressed understanding and agreement with the above treatment plan. The patient is aware they should contact our office by phone for worsening of their current condition or the appearance of new urologic symptoms. Compliance is encouraged with any medications and followup testing that is ordered. It is a privilege to participate in the urologic care of your patient. If you have any questions or concerns regarding treatment for the above conditions, or other urologic issues, please do not hesitate to contact me. The office telephone contact is [phone]. This note is constructed using voice recognition software. While every effort has been made to ensure accuracy precipitate washer errors may have been included. Yours sincerely, Dr Tray Farias MD, [facility] - Urology Providers of Expert, Compassionate Care for the Genitourinary System Coding Level of Care Code Est Pt Level 3 (63488) Diagnoses Bladder diverticulum N32.3 Bladder outlet obstruction N32.0 Urinary retention with incomplete bladder emptying R33.9
== END 2023-10-14 09:02 | disposition home or self-care (01) ==
PROVIDERS: PCP Internal Medicine; Visit Provider Urology
DX: N32.3 Diverticulum of bladder (principal); N32.0 Bladder-neck obstruction; R33.9 Retention of urine, unspecified
CPT/HCPCS: 99213

== ENCOUNTER → 2023-10-14 08:19 | Outpatient (BNVA) | payer MEDICARE, SELFPAY | PROVIDERS: PCP Internal Medicine; Visit Provider Urology | DX: N32.3 Diverticulum of bladder (principal); N32.0 Bladder-neck obstruction; R33.9 Retention of urine, unspecified | CPT/HCPCS: 99212 ==

== ENCOUNTER 2023-10-25 09:30 | Outpatient (REF) | payer MEDICARE, SELFPAY ==
[2023-10-25 10:48] LABS: Estimated Average Glucose 192 mg/dL; Hemoglobin A1c % 8.3 % (<6.0)
[2023-10-25 11:05] LABS: Cholesterol 124 mg/dL (<200); Glucose Fasting 170 mg/dL (60-99); HDL Cholesterol 44 mg/dL (>40); LDL Cholesterol Calculated 65 mg/dL (<100); Triglycerides 77 mg/dL (<150)
== END 2023-10-25 09:31 | disposition home or self-care (01) ==
LOC: HO.LAB 09:30
PROVIDERS: PCP Internal Medicine; Visit Provider Internal Medicine
DX: R73.9 Hyperglycemia, unspecified (principal); E78.5 Hyperlipidemia, unspecified
CPT/HCPCS: 36415; 80061; 82947; 83036

== ENCOUNTER 2023-10-31 09:15 | Outpatient (AMB) | payer MEDICARE, SELFPAY ==
[2023-10-31 09:16] VITALS: BP 132/64; PULSE 75; O2SAT 99; BMI 28.6
--- NOTE | 2023-10-31 09:16 | MHC.PC.OV ---
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: Not Required per policy Accompanied by: Self / Same As Patient Allergies SHOAIB Inhibitors Allergy (Intermediate, Verified 10/31/23 09:17) swelling of tongue Medication List - Last Reconciled 10/31/23 by Polo Casas MD amlodipine 10 mg PO DAILY aspirin 81 mg PO DAILY atorvastatin 20 mg PO DAILY blood sugar diagnostic (FreeStyle Lite Strips) 1 strip miscellaneous BID-TID cholecalciferol (vitamin D3) 50 mcg PO DAILY finasteride 5 mg PO DAILY 90 days folic acid 0.4 mg PO DAILY lancets (FreeStyle Lancets) three times a day losartan 50 mg PO DAILY metformin ER 1,000 mg (2 x 500 mg) PO BID omeprazole 20 mg PO DAILY repaglinide 1-2 tab before lunch, 1-3 tabs before dinner PO once; as directed 90 days tadalafil 5 mg PO DAILY 90 days tamsulosin 0.4 mg PO BEDTIME 90 days terbinafine HCl 1% (Antifungal (terbinafine)) 1 appl topical BID Tobacco use date assessed: 10/31/23 Fall risk assessment: No Falls in past year Last assessed Fall Risk: 10/31/23 Dental Screening Dental Screen Date: 10/31/23 Did you have a dental visit in the last 12 months?: Yes Did you have a dental problem in the last 6 months where you did not have access to dental care?: No Was dental information given to patient?: Patient has dentist HPI 3mth f/u HPI Details HTN hyperlip nd DM; ditary indiscretion [facility] Medical History COVID-19 vaccine series completed HTN (hypertension) Thalassemia trait Hiatal hernia GERD (gastroesophageal reflux disease) Diabetes mellitus with coincident hypertension 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 Mother No problems noted. Sister Diabetes Brother Diabetes Social History Household Members: Spouse Housing: House Alcohol intake: current Alcohol intake frequency: holidays/special occasions only Patient Tobacco Use Status: Never used Tobacco e-Cigarette/Vaping Use: Never Used Second Hand Smoke Exposure: No Advance Directives Date on File: 10/04/04 service: Yes Current occupational status: retired Cognitive needs: No Hearing needs: No Vision needs: Yes (glasses) Questionnaire PHQ-9 Over the last 2 weeks, how often have you been bothered by any of the following problems? 1. Little interest or pleasure in doing things: not at all 2. Feeling down, depressed, or hopeless: not at all 3. Trouble falling or staying asleep, or sleeping too much: not at all 4. Feeling tired or having little energy: not at all 5. Poor appetite or overeating: not at all 6. Feeling bad about yourself - or that you are a failure or have let yourself or your family down: not at all 7. Trouble concentrating on things, such as reading the newspaper or watching television: not at all 8. Moving or speaking so slowly that other people could have noticed. Or the opposite - being so fidgety or restless that you have been moving around a lot more than usual: not at all 9. Thoughts that you would be better off or of hurting yourself in some way: not at all Total score: 0 Depression Screening Interpretation: Negative Depression Screening Done: Yes 46641 - PHQ-9 Billing: Yes Source: Developed by Drs. Blake Thomas, Audelia Caal, Alexei Johnson and colleagues, with an educational alex from [employer]. Thrive Questionnaire Date Thrive assessed: 10/31/23 I am a: Patient What is your living situation today?: I have a steady place to live Within the past 12 months, did the food you bought not last and you didn't have the money to get more?: Never true Within the past 12 months, did you worry whether your food would run out before you got money to buy more?: Never true Do you have trouble paying for medicines?: No Do you have trouble getting transportation to medical appointments?: No Do you have trouble paying your heating and electricity bill?: No Do you have trouble taking care of your child, family member or friend?: No Do you have trouble with day-to-day activities such as bathing, preparing meals, shopping, managing finances, etc.?: No Are you currently unemployed and looking for a job?: No Are you interested in more education?: No Please select the resources that you would like help with: None THRIVE Score: 0 AUDIT C Alcohol Use Questionnaire (AUDIT-C) 1. How often do you have a drink containing alcohol?: Monthly or less 2. How many drinks containing alcohol do you have on a typical day when you are drinking?: 1 or 2 3. How often do you have six or more drinks on one occasion?: Never Total Score: 1 Score Reviewed/Action Taken: Yes DREW-7 AMB Questionnaire DREW-7 Date DREW - 7 assessed: 10/31/23 Feeling nervous, anxious, or on edge: 0 = Not at all Not being able to stop or control worryin = Not at all Worrying too much about different things: 0 = Not at all Trouble relaxin = Not at all Being so restless that it is hard to sit still: 0 = Not at all Becoming easily annoyed or irritable: 0 = Not at all Feeling afraid as if something awful might happen: 0 = Not at all Total DREW-7 score (0-4 normal; 5-9 mild; 10-14 moderate; 15-21 severe): 0 Source: Developed by Drs. Blake Thomas, Audelia Caal, Alexei Johnson and colleagues, with an educational alex from [employer]. DREW-7 Assessment Billing DREW-7 Assessment Tool: DREW-7 Assessment 94202 Review of Systems Const Denies chills, Denies headache(s) and Denies weight loss ENT Denies headache(s) Card Denies chest pain, Denies syncope, Denies irregular heart rhythm and Denies dyspnea Resp Denies chest congestion, Denies cough and Denies dyspnea GI Denies abdominal pain, Denies change in stool character, Denies nausea and Denies vomiting Musc Denies deformity and Denies joint swelling Neuro Denies syncope and Denies headache(s) Physical exam (Primary Care) Vital Signs: Last Vital Signs Pulse 75 10/31/23 09:16 BP 132/64 10/31/23 09:16 Pulse Ox 99 10/31/23 09:16 Oxygen Delivery Method Room Air 10/31/23 09:16 BMI result Body Mass Index 28.6 Tobacco/Smoking Status: Tobacco use Status Tobacco use date assessed 10/31/23 10/31/23 09:18 Patient Tobacco Use Status Never used Tobacco 10/31/23 09:18 e-Cigarette/Vaping Use Never Used 10/31/23 09:18 PHQ-9: PHQ-9 Score PHQ-9: Total score 0 10/31/23 09:26 Depression Screening Interpretation: Negative Thrive Assessment: Date of Thrive Assessment Date Thrive assessed 10/31/23 10/31/23 09:18 Const General: cooperative, comfortable, no acute distress and alert Neck Neck: Yes no lymphadenopathy Thyroid: Thyroid normal Resp Effort & Inspection: normal respiratory effort Auscultation: clear to auscultation bilaterally Percussion: percussion normal Cardio Jugular venous distension: no JVD Palpation: normal PMI Rate: regular rate Rhythm: regular rhythm Heart sounds: S1 normal heart sound present and S2 normal heart sound present GI Inspection: Yes normal to inspection Palpation (GI): No hepatosplenomegaly present Skin General skin exam: no rashes or lesions noted Extrem General: Yes no clubbing, cyanosis or edema Assessment and Plan Assessment & Plan (1) Diabetes mellitus with coincident hypertension: Code(s): E11.9 - Type 2 diabetes mellitus without complications; I10 - Essential (primary) hypertension Plan: improve diet (2) Essential hypertension: Code(s): I10 - Essential (primary) hypertension Plan: stable; same rx (3) Hyperlipidemia LDL goal <100: Code(s): E78.5 - Hyperlipidemia, unspecified Plan: stable; same rx Orders: Orders Lipid Panel Today E78.5 - Hyperlipidemia, unspecified Glucose Fasting Today R73.9 - Hyperglycemia, unspecified Hemoglobin A1c Today R73.9 - Hyperglycemia, unspecified Coding Level of Care Code Est Pt Level 4 (34322) Diagnoses Diabetes mellitus with coincident hypertension E11.9; I10 Essential hypertension I10 Hyperlipidemia LDL goal <100 E78.5 Additional Codes DREW-7 Assessment Billing - DREW-7 Assessment Tool: DREW-7 Assessment [id number] ([id number])
== END 2023-10-31 09:50 | disposition home or self-care (01) ==
PROVIDERS: PCP Internal Medicine; Visit Provider Internal Medicine
DX: E11.9 Type 2 diabetes mellitus without complications (principal); I10 Essential (primary) hypertension; E78.5 Hyperlipidemia, unspecified
CPT/HCPCS: 99214

== ENCOUNTER 2024-01-30 09:05 | Outpatient (REF) | payer MEDICARE, SELFPAY ==
[2024-01-30 10:06] LABS: Estimated Average Glucose 180 mg/dL; Hemoglobin A1c % 7.9 % (<6.0)
[2024-01-30 10:29] LABS: Cholesterol 113 mg/dL (<200); Glucose Fasting 146 mg/dL (60-99); HDL Cholesterol 37 mg/dL (>40); LDL Cholesterol Calculated 60 mg/dL (<100); Triglycerides 83 mg/dL (<150)
== END 2024-01-30 09:06 | disposition home or self-care (01) ==
LOC: HO.LAB 09:05
PROVIDERS: PCP Internal Medicine; Visit Provider Internal Medicine
DX: R73.9 Hyperglycemia, unspecified (principal); E78.5 Hyperlipidemia, unspecified
CPT/HCPCS: 36415; 80061; 82947; 83036

== ENCOUNTER 2024-02-03 08:13 | Outpatient (AMB) | payer MEDICARE, SELFPAY ==
[2024-02-03 08:40] VITALS: BP 130/62; PULSE 63; O2SAT 97; BMI 28.7
--- NOTE | 2024-02-03 08:40 | MHC.PC.OV ---
Vital Signs 02/03/24 08:40 Height 5 ft 11 in Weight 206 lb BMI 28.7 BP 130/62 Blood Pressure Location Lt brachial Position Sitting Pulse 63 Pulse Source Pulse Oximeter Pulse Oximetry (%) 97 Oxygen Delivery Method Room Air Intake Visit Reasons: 3mth f/u - see comments Allergies SHOAIB Inhibitors Allergy (Intermediate, Verified 10/31/23 09:17) swelling of tongue Tobacco use date assessed: 10/31/23 Fall risk assessment: No Falls in past year Last assessed Fall Risk: 02/03/24 Dental Screening Dental Screen Date: 10/31/23 HPI 3mth f/u - see comments HPI Details htn hyperlip and dm; improved bs; trying to exercise more PFSH Medical History COVID-19 vaccine series completed HTN (hypertension) Thalassemia trait Hiatal hernia GERD (gastroesophageal reflux disease) Diabetes mellitus with coincident hypertension 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 Mother No problems noted. Sister Diabetes Brother Diabetes Social History Household Members: Spouse Housing: House Alcohol intake: current Alcohol intake frequency: holidays/special occasions only Patient Tobacco Use Status: Never used Tobacco e-Cigarette/Vaping Use: Never Used Second Hand Smoke Exposure: No Advance Directives Date on File: 10/04/04 service: Yes Current occupational status: retired Cognitive needs: No Hearing needs: No Vision needs: Yes (glasses) Questionnaire Thrive Questionnaire Date Thrive assessed: 10/31/23 DREW-7 AMB Questionnaire DREW-7 Date DREW - 7 assessed: 10/31/23 Source: Developed by Drs. Blake Thomas, Audelia Caal, Alexei Johnson and colleagues, with an educational alex from [employer]. Review of Systems Const Denies chills, Denies headache(s) and Denies weight loss ENT Denies headache(s) Card Denies chest pain, Denies syncope, Denies irregular heart rhythm and Denies dyspnea Resp Denies chest congestion, Denies cough and Denies dyspnea GI Denies abdominal pain, Denies change in stool character, Denies nausea and Denies vomiting Musc Denies deformity and Denies joint swelling Neuro Denies syncope and Denies headache(s) Physical exam (Primary Care) Vital Signs: Last Vital Signs Pulse 63 02/03/24 08:40 BP 130/62 02/03/24 08:40 Pulse Ox 97 02/03/24 08:40 Oxygen Delivery Method Room Air 02/03/24 08:40 BMI result Body Mass Index 28.7 Tobacco/Smoking Status: Tobacco use Status Tobacco use date assessed 10/31/23 02/03/24 08:41 Patient Tobacco Use Status Never used Tobacco 02/03/24 08:41 e-Cigarette/Vaping Use Never Used 02/03/24 08:41 Thrive Assessment: Date of Thrive Assessment Date Thrive assessed 10/31/23 02/03/24 08:41 Const General: cooperative, comfortable, no acute distress and alert Neck Neck: Yes no lymphadenopathy Thyroid: Thyroid normal Resp Effort & Inspection: normal respiratory effort Auscultation: clear to auscultation bilaterally Percussion: percussion normal Cardio Jugular venous distension: no JVD Palpation: normal PMI Rate: regular rate Rhythm: regular rhythm Heart sounds: S1 normal heart sound present and S2 normal heart sound present GI Inspection: Yes normal to inspection Palpation (GI): No hepatosplenomegaly present Skin General skin exam: no rashes or lesions noted Extrem General: Yes no clubbing, cyanosis or edema Assessment and Plan Assessment & Plan (1) Diabetes mellitus with coincident hypertension: Code(s): E11.9 - Type 2 diabetes mellitus without complications; I10 - Essential (primary) hypertension Plan: stable; same rx (2) Essential hypertension: Code(s): I10 - Essential (primary) hypertension Plan: stable; same rx (3) Hyperlipidemia LDL goal <100: Code(s): E78.5 - Hyperlipidemia, unspecified Plan: stable ;same rx Orders: Orders Lipid Panel Today Z13.220 - Encounter for screening for lipoid disorders Hemoglobin A1c Today R73.9 - Hyperglycemia, unspecified Glucose Fasting Today R73.9 - Hyperglycemia, unspecified Medications: Refilled losartan 50 mg PO DAILY 90 tabs 1RF amlodipine 10 mg PO DAILY 90 tabs 1RF I10 - Essential (primary) hypertension atorvastatin 20 mg PO DAILY 90 tabs 1RF E78.5 - Hyperlipidemia, unspecified metformin ER 1,000 mg (2 x 500 mg) PO BID 360 tabs 1RF E11.9 - Type 2 diabetes mellitus without complications Coding Level of Care Code Est Pt Level 4 (35501) Diagnoses Diabetes mellitus with coincident hypertension E11.9; I10 Essential hypertension I10 Hyperlipidemia LDL goal <100 E78.5
== END 2024-02-03 09:14 | disposition home or self-care (01) ==
PROVIDERS: PCP Internal Medicine; Visit Provider Internal Medicine
DX: E11.69 Type 2 diabetes mellitus with other specified complication (principal); I10 Essential (primary) hypertension; E78.5 Hyperlipidemia, unspecified
CPT/HCPCS: 99214

== ENCOUNTER 2024-03-16 10:17 | Outpatient (AMB) | payer MEDICARE, SELFPAY ==
[2024-03-16 10:23] VITALS: BP 152/62; PULSE 77; O2SAT 97; BMI 28.9
--- NOTE | 2024-03-16 10:23 | MHC.PC.OV ---
Vital Signs 03/16/24 10:23 Height 5 ft 11 in Weight 207 lb BMI 28.9 BP 152/62 H Blood Pressure Location Lt brachial Position Sitting Pulse 77 Pulse Source Pulse Oximeter Pulse Oximetry (%) 97 Oxygen Delivery Method Room Air Intake Visit Reasons: Pain Right side Allergies SHOAIB Inhibitors Allergy (Intermediate, Verified 03/16/24 10:24) swelling of tongue Medication List - Last Reconciled 03/16/24 by Polo Casas MD amlodipine 10 mg PO DAILY aspirin 81 mg PO DAILY atorvastatin 20 mg PO DAILY blood sugar diagnostic (FreeStyle Lite Strips) 1 strip miscellaneous BID-TID cholecalciferol (vitamin D3) 50 mcg PO DAILY finasteride 5 mg PO DAILY 90 days folic acid 0.4 mg PO DAILY lancets (FreeStyle Lancets) three times a day losartan 50 mg PO DAILY metformin ER 1,000 mg (2 x 500 mg) PO BID omeprazole 20 mg PO DAILY repaglinide 1-2 tab before lunch, 1-3 tabs before dinner PO once; as directed 90 days tadalafil 5 mg PO DAILY 90 days tamsulosin 0.4 mg PO BEDTIME 90 days terbinafine HCl 1% (Antifungal (terbinafine)) 1 appl topical BID Tobacco use date assessed: 10/31/23 Fall risk assessment: No Falls in past year Last assessed Fall Risk: 03/16/24 Dental Screening Dental Screen Date: 10/31/23 HPI Pain Right side HPI Details right sided abd pain for 2 weeks; contant; no n/v or changes in bms; eating well COUNT INCLUDES THE [facility] Medical History COVID-19 vaccine series completed HTN (hypertension) Thalassemia trait Hiatal hernia GERD (gastroesophageal reflux disease) Diabetes mellitus with coincident hypertension 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 Mother No problems noted. Sister Diabetes Brother Diabetes Social History Household Members: Spouse Housing: House Alcohol intake: current Alcohol intake frequency: holidays/special occasions only Patient Tobacco Use Status: Never used Tobacco Tobacco use type: Cigarette e-Cigarette/Vaping Use: Never Used Second Hand Smoke Exposure: No Advance Directives Date on File: 10/04/04 service: Yes Current occupational status: retired Cognitive needs: No Hearing needs: No Vision needs: Yes (glasses) Questionnaire PHQ-9 Over the last 2 weeks, how often have you been bothered by any of the following problems? 1. Little interest or pleasure in doing things: not at all 2. Feeling down, depressed, or hopeless: not at all 3. Trouble falling or staying asleep, or sleeping too much: not at all 4. Feeling tired or having little energy: not at all 5. Poor appetite or overeating: not at all 6. Feeling bad about yourself - or that you are a failure or have let yourself or your family down: not at all 7. Trouble concentrating on things, such as reading the newspaper or watching television: not at all 8. Moving or speaking so slowly that other people could have noticed. Or the opposite - being so fidgety or restless that you have been moving around a lot more than usual: not at all 9. Thoughts that you would be better off or of hurting yourself in some way: not at all Total score: 0 Depression Screening Interpretation: Negative Depression Screening Done: Yes 97794 - PHQ-9 Billing: Yes Source: Developed by Drs. Blake Thomas, Audelia Caal, Alexei Johnson and colleagues, with an educational alex from [employer]. Thrive Questionnaire Date Thrive assessed: 10/31/23 AUDIT C Alcohol Use Questionnaire (AUDIT-C) 1. How often do you have a drink containing alcohol?: Monthly or less 2. How many drinks containing alcohol do you have on a typical day when you are drinking?: 1 or 2 3. How often do you have six or more drinks on one occasion?: Never Total Score: 1 Score Reviewed/Action Taken: Yes DREW-7 AMB Questionnaire DREW-7 Date DREW - 7 assessed: 10/31/23 Source: Developed by Drs. Blake Thomas, Audelia Caal, Alexei Johnson and colleagues, with an educational alex from [employer]. Review of Systems Const Denies chills, Denies headache(s) and Denies weight loss ENT Denies headache(s) Card Denies chest pain, Denies syncope, Denies irregular heart rhythm and Denies dyspnea Resp Denies chest congestion, Denies cough and Denies dyspnea GI Denies change in stool character, Denies nausea and Denies vomiting Musc Denies deformity and Denies joint swelling Neuro Denies syncope and Denies headache(s) Physical exam (Primary Care) Vital Signs: Last Vital Signs Pulse 77 03/16/24 10:23 BP 152/62 H 03/16/24 10:23 Pulse Ox 97 03/16/24 10:23 Oxygen Delivery Method Room Air 03/16/24 10:23 BMI result Body Mass Index 28.9 Tobacco/Smoking Status: Tobacco use Status Tobacco use date assessed 10/31/23 03/16/24 10:27 Patient Tobacco Use Status Never used Tobacco 03/16/24 10:27 Tobacco use type Cigarette 03/16/24 10:27 e-Cigarette/Vaping Use Never Used 03/16/24 10:27 PHQ-9: PHQ-9 Score PHQ-9: Total score 0 03/16/24 10:27 Depression Screening Interpretation: Negative Thrive Assessment: Date of Thrive Assessment Date Thrive assessed 10/31/23 03/16/24 10:27 Const General: cooperative, comfortable, no acute distress and alert Neck Neck: Yes no lymphadenopathy Thyroid: Thyroid normal Resp Effort & Inspection: normal respiratory effort Auscultation: clear to auscultation bilaterally Percussion: percussion normal Cardio Jugular venous distension: no JVD Palpation: normal PMI Rate: regular rate Rhythm: regular rhythm Heart sounds: S1 normal heart sound present and S2 normal heart sound present GI Inspection: Yes normal to inspection Palpation (GI): No hepatosplenomegaly present Skin General skin exam: no rashes or lesions noted Extrem General: Yes no clubbing, cyanosis or edema Assessment and Plan Assessment & Plan (1) Right sided abdominal pain: Code(s): R10.9 - Unspecified abdominal pain Plan: labs and ct Orders: Orders Complete Blood Count Auto Diff Today Z13.0 - Encounter for screening for diseases of the blood and blood-forming organs and certain disorders involving the immune mechanism Basic Metabolic Panel Today R10.9 - Unspecified abdominal pain CT abdomen wo IV con Today R10.9 - Unspecified abdominal pain Coding Level of Care Code Est Pt Level 3 (48589) Diagnoses Right sided abdominal pain R10.9
== END 2024-03-16 10:53 | disposition home or self-care (01) ==
PROVIDERS: PCP Internal Medicine; Visit Provider Internal Medicine
DX: R10.9 Unspecified abdominal pain (principal)
CPT/HCPCS: 99213

== ENCOUNTER 2024-03-16 10:57 | Outpatient (REF) | payer MEDICARE, SELFPAY ==
[2024-03-16 11:07] LABS: MANUAL DIFF FLAG NO
[2024-03-16 11:36] LABS: Basophils Absolute Auto 0.1 X10*3/uL (0.0-0.2); Basophils Percent Auto 0.8 % (0-2); Eosinophils Absolute Auto 0.1 X10*3/uL (0.0-0.4); Eosinophils Percent Auto 0.9 % (0-4); Hemoglobin 11.8 g/dl (14.0-18.0); Imm Gran Abs Auto 0.02 X10*3/uL (0.00-0.03); Imm Gran Pct Auto 0.3 % (0.0-0.4); Lymphocytes Absolute Auto 1.4 X10*3/uL (1.2-4.9); Lymphocytes Percent Auto 18.8 % (20-40); Mean Corpuscular HGB Conc 31.1 g/dl (31.0-36.0); Mean Corpuscular Volume 74.2 fL (80.0-98.0); Mean Platelet Volume 9.9 fL (9.4-12.4); Monocytes Absolute Auto 0.7 X10*3/uL (0.1-1.2); Monocytes Percent Auto 9.1 % (2-11); Neutrophils Absolute Auto 5.3 x10*3/uL (2.0-8.3); Neutrophils Percent Auto 70.1 % (45-73); Platelet Count 302 X10*3/uL (160-400); Red Blood Count 5.12 X10*6/uL (4.60-5.80); Red Cell Distribution Width 15.3 % (11.0-16.0); White Blood Count 7.6 X10*3/uL (4.8-10.8)
[2024-03-16 12:09] LABS: Estimated Average Glucose 177 mg/dL; Hemoglobin A1c % 7.8 % (<6.0)
[2024-03-16 13:58] LABS: Anion Gap 13 (12-20); Blood Urea Nitrogen 14 mg/dL (9-16); Calcium 9.7 mg/dL (8.4-10.2); Carbon Dioxide 22 mmol/L (22-29); Chloride 108 mmol/L (96-108); Cholesterol 109 mg/dL (<200); Estimated Glomerular Filt Rate > 60; Glucose Fasting 213 mg/dL (60-99); HDL Cholesterol 42 mg/dL (>40); LDL Cholesterol Calculated 49 mg/dL (<100); Potassium 4.3 mmol/L (3.3-5.1); Sodium 139 mmol/L (135-145); Triglycerides 92 mg/dL (<150)
== END 2024-03-16 10:58 | disposition home or self-care (01) ==
LOC: HO.LAB 10:57
PROVIDERS: PCP Internal Medicine; Visit Provider Internal Medicine
DX: Z13.0 Encounter for screening for diseases of the blood and blood-forming organs and certain disorders involving the immune mechanism (principal); Z13.220 Encounter for screening for lipoid disorders; R73.9 Hyperglycemia, unspecified
CPT/HCPCS: 36415; 80048; 80061; 83036; 85025

== ENCOUNTER 2024-04-17 10:38 | Outpatient (AMB) | payer MEDICARE, SELFPAY ==
--- NOTE | 2024-04-17 10:56 | A.OFFVIS_ITS ---
Intake Visit Reasons: 6M Follow up-PVR Intake Note: Patient is Present for PVR/ Urology Med: Tamsulosin, Finasteride, Tadalafil Antibiotic Allergy: None Blood Thinner: Aspirin Recent A1C: 7.8 Last PSA: 03/2022 0.25 Last PVR: 422ml Todays PVR: Chiropractic Assistant Required: No Accompanied by: Self / Same As Patient Allergies SHOAIB Inhibitors Allergy (Intermediate, Verified 04/17/24 11:14) swelling of tongue Medication List - Last Reconciled 04/17/24 by Tray Farias MD amlodipine 10 mg PO DAILY aspirin 81 mg PO DAILY atorvastatin 20 mg PO DAILY blood sugar diagnostic (FreeStyle Lite Strips) 1 strip miscellaneous BID-TID cholecalciferol (vitamin D3) 50 mcg PO DAILY finasteride 5 mg PO DAILY 90 days folic acid 0.4 mg PO DAILY lancets (FreeStyle Lancets) three times a day losartan 50 mg PO DAILY metformin ER 1,000 mg (2 x 500 mg) PO BID omeprazole 20 mg PO DAILY repaglinide 1-2 tab before lunch, 1-3 tabs before dinner PO once; as directed 90 days tadalafil 5 mg PO DAILY 90 days tamsulosin 0.4 mg PO BEDTIME 90 days terbinafine HCl 1% (Antifungal (terbinafine)) 1 appl topical BID HPI Comments Details: Ramin PEREIRA is a very pleasant male. They are a patient of Dr Casas. . He is seen for the following urologic conditions - lower urinary tract symptoms - erectile dysfunction Current PVR 140 Known large bladder diverticulum Remains on finasteride Tuesday, Tuesday, Tuesday - Continue daily tadalafil 5 mg Have previously recommended GreenLight laser prostatectomy with bladder diverticula laser Would continue to follow Lower Urinary Tract Symptoms: Did well with combination therapy - finasteride, tamsulosin PSA 02/25 0.2, 03/29 0.3 Will continue Nocturia reduced from 1-2 times from 3-4. Current visit is for further evaluation of, lower urinary tract symptoms, predominate obstructive symptoms. Prostate Symptom Score Moderate (9-19), Bother 3. Symptoms include incomplete emptying, weak stream, nocturia (>2), and are improving Erectile dysfunction in setting of diabetes Switch to daily tadalafil Responsive to sildenafil Associated diabetes, and dyslipidemia, and hypertension HBA1c - 12/28 8.2% Microscopic Hematuria: Microscopic hematuria was diagnosed during routine UA - probable UTI. They are here for further evaluation. Relevant medical history for prior , tobacco use and UTI's Radiographic imagin/20 , CT KUB - multiple bladder diverticula, enlarged prostate, cyst on right kidney 2 cm. 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 Mother No problems noted. Sister Diabetes Brother Diabetes Social History Household Members: Spouse Housing: House Alcohol intake: current Alcohol intake frequency: holidays/special occasions only Patient Tobacco Use Status: Never used Tobacco Tobacco use type: Cigarette e-Cigarette/Vaping Use: Never Used Second Hand Smoke Exposure: No Advance Directives Date on File: 10/04/04 service: Yes Current occupational status: retired Cognitive needs: No Hearing needs: No Vision needs: Yes (glasses) Review of Systems Const Denies chills and Denies fever(s) Card Reports no additional complaints and Denies syncope Resp Denies cough GI Denies abdominal pain and Denies heartburn Reports as per HPI and Denies change in libido Neuro Denies syncope Psych Denies change in libido Endo Denies change in libido Physical Exam Const General: cooperative, healthy appearing, comfortable and no acute distress Orientation/consciousness: patient oriented x3 HEENT Face and sinus: Yes normal facial exam Mouth: moist mucous membranes Neck Neck: Yes normal visual inspection, Yes full ROM and Yes trachea midline Chest Chest palpation & inspection: normal inspection of the chest Resp Effort & Inspection: normal respiratory effort, able to speak in complete sentences and no respiratory distress GI Inspection: Yes normal to inspection Back/Spine/Pelvis Cervical Spine: normal cervical lordosis Thoracic/Lumbar Spine: thoracic and lumbar spine normal to inspection Skin General skin exam: no rashes or lesions noted Neuro General: patient oriented x3, gait normal, tone normal and moves all extremities Extrem General: Yes normal to inspection and Yes capillary refill normal Assessment & Plan Assessment & Plan (1) Urinary retention with incomplete bladder emptying: Code(s): R33.9 - Retention of urine, unspecified Category: Medical (2) Erectile dysfunction associated with type 2 diabetes mellitus: Code(s): E11.69 - Type 2 diabetes mellitus with other specified complication; N52.1 - Erectile dysfunction due to diseases classified elsewhere Category: Medical (3) Bladder outlet obstruction: Code(s): N32.0 - Bladder-neck obstruction Category: Medical Plan Six-month follow-up PVR Orders: Orders AMB Post Void Residual by ultrasound Today R33.9 - Retention of urine, unspecified Medications: Refilled tadalafil 5 mg PO DAILY 90 tabs 1RF sexual activity 90 days E11.69 - Type 2 diabetes mellitus with other specified complication, N52.1 - Erectile dysfunction due to diseases classified elsewhere Patient Instructions: Imaging studies, laboratory and physical exam results were discussed and reviewed in detail. No major barriers to patient understanding were identified. An opportunity to ask questions regarding the treatment plan was provided. All questions were answered. The patient expressed understanding and agreement with the above treatment plan. The patient is aware they should contact our office by phone for worsening of their current condition or the appearance of new urologic symptoms. Compliance is encouraged with any medications and followup testing that is ordered. It is a privilege to participate in the urologic care of your patient. If you have any questions or concerns regarding treatment for the above conditions, or other urologic issues, please do not hesitate to contact me. The office telephone contact is [phone]. This note is constructed using voice recognition software. While every effort has been made to ensure accuracy talk show host errors may have been included. Yours sincerely, Dr Tray Farias MD, [facility] - Urology Providers of Expert, Compassionate Care for the Genitourinary System Coding Level of Care Code Est Pt Level 3 (90741) Diagnoses Urinary retention with incomplete bladder emptying R33.9 Erectile dysfunction associated with type 2 diabetes mellitus E11.69; N52.1 Bladder outlet obstruction N32.0
== END 2024-04-17 11:34 | disposition home or self-care (01) ==
PROVIDERS: PCP Internal Medicine; Visit Provider Urology
DX: R33.9 Retention of urine, unspecified (principal); E11.69 Type 2 diabetes mellitus with other specified complication; N52.1 Erectile dysfunction due to diseases classified elsewhere; N32.0 Bladder-neck obstruction
CPT/HCPCS: 99213

== ENCOUNTER → 2024-04-17 10:38 | Outpatient (BNVA) | payer MEDICARE, SELFPAY | PROVIDERS: PCP Internal Medicine; Visit Provider Urology | DX: N32.0 Bladder-neck obstruction (principal); E11.69 Type 2 diabetes mellitus with other specified complication; N52.1 Erectile dysfunction due to diseases classified elsewhere; R33.9 Retention of urine, unspecified | CPT/HCPCS: 99212 ==

== ENCOUNTER 2024-04-24 07:58 | Outpatient (REF) | payer MEDICARE, SELFPAY ==
--- NOTE | ~2024-04-24 | CT_ITS ---
EXAMINATION: CT ABDOMEN WITHOUT CONTRAST CLINICAL INFORMATION: Abdominal pain COMPARISON: 09/18/2019 TECHNIQUE: Contiguous axial thin section helical images of the abdomen were performed without contrast. The data set was reformatted in the coronal and sagittal planes and reviewed on an independent workstation. This CT examination was performed using dose optimization techniques as appropriate, variously including the following: *Automated exposure control *Adjustment of mA and/or kV according to patient size (this includes techniques or standardized protocols for targeted exams where dose is matched to indication/reason for exam; i.e. extremities or head) *Use of iterative reconstruction technique DLP: 453 mGy-cm FINDINGS: LUNG BASES: The visualized lung bases are unremarkable. Punctate granuloma present at the left lung base. LIVER, GALLBLADDER, AND BILIARY TREE: The liver is normal in size, shape, and attenuation. No focal hepatic lesion or biliary ductal dilatation is present. The gallbladder is grossly abnormal with a thickened wall and soft tissue density extending off the fundus (3:51 and 4:154). No gallstones are seen.. PANCREAS: Unremarkable. SPLEEN: Unremarkable. ADRENAL GLANDS: Unremarkable. KIDNEYS AND URETERS: The kidneys are normal in size, shape, and attenuation. No hydronephrosis, hydroureter, or calculi seen. No perinephric stranding. A benign 2 cm left upper pole Bosniak class I renal cyst is again noted which requires no additional imaging or follow up. No solid renal masses are seen. GASTROINTESTINAL TRACT: The included small and large bowel are unremarkable aside from colonic diverticulosis without diverticulitis. Some high density presumed pills are seen in the small bowel. The appendix is unremarkable. ABDOMINAL WALL: No significant hernia is appreciated. LYMPH NODES: Normal. VASCULAR: Calcific atherosclerotic changes are present in the aorta and iliac vessels. There is no evidence of an abdominal aortic aneurysm. PELVIS: The pelvis is only partially included on this abdominal CT and the bladder is distended with a thickened wall similar to the 09/18/2019 study. OSSEOUS STRUCTURES: Degenerative changes are seen at L5-S1. No bony destructive lesions. CT/CT abdomen wo IV con IMPRESSION: 1. Grossly abnormal gallbladder with a thickened wall and soft tissue density extending off the fundus. Ultrasound is recommended for further evaluation. Differential diagnosis would include gallbladder neoplasm along with adenomyomatosis or possibly cholecystitis with stones not visible on CT. 2. Incidental note made of colonic diverticulosis without diverticulitis and degenerative changes L5-S1. Fleischner guidelines were followed. Electronically signed by: Gurpreet Ann MD 04/24/2024 03:22 PM EDT RP
== END 2024-04-24 07:59 | disposition home or self-care (01) ==
LOC: HO.CT 07:58
PROVIDERS: PCP Internal Medicine; Visit Provider Internal Medicine
DX: R10.9 Unspecified abdominal pain (principal)
CPT/HCPCS: 74150

== ENCOUNTER 2024-05-22 10:16 | Outpatient (AMB) | payer MEDICARE, SELFPAY ==
[2024-05-22 10:19] VITALS: BP 142/70; PULSE 81; O2SAT 94; BMI 28.7
--- NOTE | 2024-05-22 10:19 | MHC.PC.OV ---
Vital Signs 05/22/24 10:19 Height 5 ft 11 in Weight 206 lb BMI 28.7 BP 142/70 H Blood Pressure Location Lt brachial Position Sitting Pulse 81 Pulse Source Pulse Oximeter Pulse Oximetry (%) 94 Oxygen Delivery Method Room Air Intake Visit Reasons: CT Results Intake Note: Patient requesting for refills to be built into his prescriptions. 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 Accompanied by: Self / Same As Patient Allergies SHOAIB Inhibitors Allergy (Intermediate, Verified 05/22/24 10:20) swelling of tongue Medication List - Last Reconciled 05/22/24 by Polo Casas MD amlodipine 10 mg PO DAILY aspirin 81 mg PO DAILY atorvastatin 20 mg PO DAILY blood sugar diagnostic (FreeStyle Lite Strips) 1 strip miscellaneous BID-TID cholecalciferol (vitamin D3) 50 mcg PO DAILY finasteride 5 mg PO DAILY 90 days folic acid 0.4 mg PO DAILY lancets (FreeStyle Lancets) three times a day losartan 50 mg PO DAILY metformin ER 1,000 mg (2 x 500 mg) PO BID omeprazole 20 mg PO DAILY repaglinide 1-2 tab before lunch, 1-3 tabs before dinner PO once; as directed 90 days tadalafil 5 mg PO DAILY 90 days tamsulosin 0.4 mg PO BEDTIME 90 days terbinafine HCl 1% (Antifungal (terbinafine)) 1 appl topical BID Tobacco use date assessed: 10/31/23 Dental Screening Dental Screen Date: 10/31/[address] Results HPI Details thickened inflamed GB on CT; currently feels well; has DM PFSH Medical History COVID-19 vaccine series completed HTN (hypertension) Thalassemia trait Hiatal hernia GERD (gastroesophageal reflux disease) Diabetes mellitus with coincident hypertension 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 Mother No problems noted. Sister Diabetes Brother Diabetes Social History Household Members: Spouse Housing: House Alcohol intake: current Alcohol intake frequency: holidays/special occasions only Patient Tobacco Use Status: Never used Tobacco Tobacco use type: Cigarette e-Cigarette/Vaping Use: Never Used Second Hand Smoke Exposure: No Advance Directives Date on File: 10/04/04 service: Yes Current occupational status: retired Cognitive needs: No Hearing needs: No Vision needs: Yes (glasses) Questionnaire PHQ-9 Over the last 2 weeks, how often have you been bothered by any of the following problems? 1. Little interest or pleasure in doing things: not at all 2. Feeling down, depressed, or hopeless: not at all 3. Trouble falling or staying asleep, or sleeping too much: not at all 4. Feeling tired or having little energy: not at all 5. Poor appetite or overeating: not at all 6. Feeling bad about yourself - or that you are a failure or have let yourself or your family down: not at all 7. Trouble concentrating on things, such as reading the newspaper or watching television: not at all 8. Moving or speaking so slowly that other people could have noticed. Or the opposite - being so fidgety or restless that you have been moving around a lot more than usual: not at all 9. Thoughts that you would be better off or of hurting yourself in some way: not at all Total score: 0 Depression Screening Interpretation: Negative Depression Screening Done: Yes 23083 - PHQ-9 Billing: Yes Source: Developed by Drs. Blake Thomas, Audelia Caal, Alexei Johnson and colleagues, with an educational alex from [employer]. Thrive Questionnaire Date Thrive assessed: 10/31/23 Are you currently unemployed and looking for a job?: No AUDIT C Alcohol Use Questionnaire (AUDIT-C) 1. How often do you have a drink containing alcohol?: Monthly or less 2. How many drinks containing alcohol do you have on a typical day when you are drinking?: 1 or 2 3. How often do you have six or more drinks on one occasion?: Never Total Score: 1 Score Reviewed/Action Taken: Yes DREW-7 AMB Questionnaire DREW-7 Date DREW - 7 assessed: 10/31/23 Source: Developed by Drs. Blake Thomas, Audelia Caal, Alexei Johnson and colleagues, with an educational alex from [employer]. Review of Systems Const Denies chills, Denies headache(s) and Denies weight loss ENT Denies headache(s) Card Denies chest pain, Denies syncope, Denies irregular heart rhythm and Denies dyspnea Resp Denies chest congestion, Denies cough and Denies dyspnea GI Denies abdominal pain, Denies change in stool character, Denies nausea and Denies vomiting Musc Denies deformity and Denies joint swelling Neuro Denies syncope and Denies headache(s) Physical exam (Primary Care) Vital Signs: Last Vital Signs Pulse 81 05/22/24 10:19 BP 142/70 H 05/22/24 10:19 Pulse Ox 94 05/22/24 10:19 Oxygen Delivery Method Room Air 05/22/24 10:19 BMI result Body Mass Index 28.7 Tobacco/Smoking Status: Tobacco use Status Tobacco use date assessed 10/31/23 05/22/24 10:23 Patient Tobacco Use Status Never used Tobacco 05/22/24 10:23 Tobacco use type Cigarette 05/22/24 10:23 e-Cigarette/Vaping Use Never Used 05/22/24 10:23 PHQ-9: PHQ-9 Score PHQ-9: Total score 0 05/22/24 10:24 Depression Screening Interpretation: Negative Thrive Assessment: Date of Thrive Assessment Date Thrive assessed 10/31/23 05/22/24 10:23 Const General: cooperative, comfortable, no acute distress and alert Neck Neck: Yes no lymphadenopathy Thyroid: Thyroid normal Resp Effort & Inspection: normal respiratory effort Auscultation: clear to auscultation bilaterally Percussion: percussion normal Cardio Jugular venous distension: no JVD Palpation: normal PMI Rate: regular rate Rhythm: regular rhythm Heart sounds: S1 normal heart sound present and S2 normal heart sound present GI Inspection: Yes normal to inspection Palpation (GI): No hepatosplenomegaly present Skin General skin exam: no rashes or lesions noted Extrem General: Yes no clubbing, cyanosis or edema Coding Level of Care Code Est Pt Level 3 (57162) Diagnoses Gall bladder disease K82.9 Assessment & Plan Assessment & Plan (1) Gall bladder disease: Code(s): K82.9 - Disease of gallbladder, unspecified Category: Medical Plan: ref surgery Orders: Referrals General Surgery Referral K82.9 - Disease of gallbladder, unspecified
== END 2024-05-22 10:38 | disposition home or self-care (01) ==
PROVIDERS: PCP Internal Medicine; Visit Provider Internal Medicine
DX: K82.9 Disease of gallbladder, unspecified (principal)

== ENCOUNTER → 2024-05-22 10:16 | Outpatient (BNVA) | payer MEDICARE, SELFPAY | PROVIDERS: PCP Internal Medicine; Visit Provider Internal Medicine | DX: K82.9 Disease of gallbladder, unspecified (principal) | CPT/HCPCS: 96127; 99212 ==

== ENCOUNTER 2024-05-29 09:17 | Outpatient (REF) | payer MEDICARE, SELFPAY ==
--- NOTE | ~2024-05-29 | US_ITS ---
EXAMINATION: US ABDOMEN COMPLETE CLINICAL INFORMATION: Abnormal labs. COMPARISON: 04/24/2024 CT, 01/11/2017 abdominal ultrasound TECHNIQUE: Real-time imaging of the abdominal viscera. FINDINGS: PANCREAS: Obscured by bowel gas ABDOMINAL AORTA: The proximal aorta is obscured by bowel gas, mid, and distal segments are normal in caliber. INFERIOR VENA CAVA: Visualized portions are normal. LIVER: Liver measures 15.4 cm. Increased echogenicity to the liver parenchyma. No focal hepatic lesion. There is no intrahepatic biliary duct dilatation seen. GALLBLADDER: Gallbladder contains echogenic bile and stones. Gallbladder is distended, wall is asymmetrically thickened measuring up to 8 mm. No pericholecystic fluid or sonographic Cavazos sign reported. COMMON BILE DUCT: Common bile duct measures 7 mm in diameter. RIGHT KIDNEY: Normal. No hydronephrosis. No renal calculi or focal parenchymal lesions. The kidney measures 10.2 cm in maximum dimension. LEFT KIDNEY: 2.1 cm septated upper pole cyst is seen. No hydronephrosis. No renal calculi or solid focal parenchymal lesions. The kidney measures 10.6 cm in maximum dimension. SPLEEN: Normal. The spleen measures 9.8 cm in maximum dimension. FREE FLUID: None. US/US abdomen complete IMPRESSION: 1. Cholelithiasis, biliary sludge and gallbladder wall thickening tip 8 mm. Correlate clinically for cholecystitis. 2. Hepatic steatosis. 3. 2.1 cm septated left upper pole renal cyst. 4. Nonvisualization of the pancreas and proximal aorta. Electronically signed by: Sharita White MD 05/29/2024 04:54 PM EDT
== END 2024-05-29 09:18 | disposition home or self-care (01) ==
LOC: HO.US 09:17
PROVIDERS: PCP Internal Medicine; Visit Provider Internal Medicine
DX: R79.89 Other specified abnormal findings of blood chemistry (principal); R10.9 Unspecified abdominal pain
CPT/HCPCS: 76700

== ENCOUNTER 2024-05-31 09:27 | Outpatient (AMB) | payer MEDICARE, SELFPAY ==
--- NOTE | 2024-05-31 09:40 | A.OFFVIS_ITS ---
Vital Signs 05/31/24 09:43 Height 5 ft 11 in Weight 209 lb BMI 29.1 Intake Visit Reasons: Disease of gallbladder Intake Note: This patient presents for disease of gallbladder. Pt c/o; reports no RUQ pain, reports no nausea or vomiting, reports good appetite. 04/24/2024- Abd CT 05/29/2024- Abd US Automation Qa Lead Required: No Accompanied by: Self / Same As Patient Allergies SHOAIB Inhibitors Allergy (Intermediate, Verified 05/31/24 09:43) swelling of tongue Medication List - Last Reconciled 05/31/24 by Amish Gaitan MD amlodipine 10 mg PO DAILY aspirin 81 mg PO DAILY atorvastatin 20 mg PO DAILY blood sugar diagnostic (FreeStyle Lite Strips) 1 strip miscellaneous BID-TID cholecalciferol (vitamin D3) 50 mcg PO DAILY finasteride 5 mg PO DAILY 90 days folic acid 0.4 mg PO DAILY lancets (FreeStyle Lancets) three times a day losartan 50 mg PO DAILY metformin ER 1,000 mg (2 x 500 mg) PO BID omeprazole 20 mg PO DAILY repaglinide 1-2 tab before lunch, 1-3 tabs before dinner PO once; as directed 90 days tadalafil 5 mg PO DAILY 90 days tamsulosin 0.4 mg PO BEDTIME 90 days terbinafine HCl 1% (Antifungal (terbinafine)) 1 appl topical BID HPI HPI Disease of gallbladder: Details: 83-year-old male referred for a gallstones. He says that sometime in February,, he had an episode of dull mild pain on the right quadrant that lasted for a day. He mentioned this episode to his primary care physician on an office visit. He underwent CT scan last April 2024 and an ultrasound earlier this month showing gallstones with some thickening of the gallbladder wall at the tip He says that he has not had no other episodes since that 1 time in February,. He says he has good oral intake. He denies any abdominal pain or tenderness. He says he has no GI complaints. He says he knows he has gallstones from a previous ultrasound in 2017. He said he is really has had no problems with this. 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 Mother No problems noted. Sister Diabetes Brother Diabetes Social History Household Members: Spouse Housing: House Alcohol intake: current Alcohol intake frequency: holidays/special occasions only Patient Tobacco Use Status: Never used Tobacco Tobacco use type: Cigarette e-Cigarette/Vaping Use: Never Used Second Hand Smoke Exposure: No Advance Directives Date on File: 10/04/04 service: Yes Current occupational status: retired Cognitive needs: No Hearing needs: No Vision needs: Yes (glasses) Review of Systems Const Denies chills and Denies fever(s) Card Denies chest pain, Denies dyspnea and Denies dyspnea on exertion Resp Denies cough, Denies dyspnea and Denies dyspnea on exertion GI Denies hematochezia and Denies change in bowel habits Denies hematuria and Denies difficulty urinating Musc Denies back pain and Denies limited range of motion Neuro Denies focal weakness and Denies convulsions Psych Denies depression and Denies mood swings Physical Exam Vital Signs: BMI result Body Mass Index 29.1 Const General: comfortable and no acute distress Orientation/consciousness: patient oriented x3 Eyes Other: Anicteric Neck Neck: Yes no lymphadenopathy Resp Auscultation: clear to auscultation bilaterally Cardio Rhythm: regular rhythm GI Palpation (GI): Soft to palpation, nontender and no guarding Neuro General: patient oriented x3 Assessment & Plan Assessment & Plan (1) Cholelithiasis: Code(s): K80.20 - Calculus of gallbladder without cholecystitis without obstruction Category: Medical Plan: He has imaging studies showing gallstones. He says that he had 1 episode of dull right upper quadrant pain for a day in February,. He says he has never had any problems since then I had a long discussion with the about the option of proceeding with cholecystectomy. I explained the technique of laparoscopic cholecystectomy. I reviewed the risks including but not limited to bleeding, infections, injury to other organs including bowel, liver, bile duct, as well as the benefits and alternatives. I explained to him what to expect postoperatively He is a [employer] and says that he does not want any blood transfusion at all He also says that he has had no problems that may be relatable to the gallbladder since February and states that he would like to hold off on any surgical intervention for now I did tell him that I would like to see how is doing a month or 2 and re- evaluate. He says he is comfortable with this plan. Coding Level of Care Code New Pt Level 3 (68272) Diagnoses Cholelithiasis K80.20
[2024-05-31 09:43] VITALS: BMI 29.1
== END 2024-05-31 09:58 | disposition home or self-care (01) ==
PROVIDERS: PCP Internal Medicine; Referring Provider Internal Medicine; Visit Provider Surgery
DX: K80.20 Calculus of gallbladder without cholecystitis without obstruction (principal)
CPT/HCPCS: 99203

== ENCOUNTER → 2024-05-31 09:27 | Outpatient (BNVA) | payer MEDICARE, SELFPAY | PROVIDERS: PCP Internal Medicine; Referring Provider Internal Medicine; Visit Provider Surgery | DX: K80.20 Calculus of gallbladder without cholecystitis without obstruction (principal) | CPT/HCPCS: 99202 ==

== ENCOUNTER 2024-06-04 08:58 | Outpatient (REF) | payer MEDICARE, SELFPAY ==
[2024-06-04 10:04] LABS: Anion Gap 11 (12-20); Blood Urea Nitrogen 20 mg/dL (9-16); Calcium 9.3 mg/dL (8.4-10.2); Carbon Dioxide 25 mmol/L (22-29); Chloride 106 mmol/L (96-108); Estimated Glomerular Filt Rate 53; Glucose Fasting 195 mg/dL (60-99); Glucose Random 195 mg/dL (60-115); Potassium 4.7 mmol/L (3.3-5.1); Sodium 137 mmol/L (135-145)
== END 2024-06-04 08:59 | disposition home or self-care (01) ==
LOC: HO.LAB 08:58
PROVIDERS: PCP Internal Medicine; Visit Provider Internal Medicine
DX: R73.9 Hyperglycemia, unspecified (principal); R10.9 Unspecified abdominal pain
CPT/HCPCS: 36415; 80048

== ENCOUNTER → 2024-06-07 15:23 | Outpatient (BNV) | payer MEDICARE, SELFPAY | PROVIDERS: PCP Internal Medicine; Visit Provider Internal Medicine | DX: E11.42 Type 2 diabetes mellitus with diabetic polyneuropathy (principal) | CPT/HCPCS: 83036 ==

== ENCOUNTER 2024-06-08 08:23 | Outpatient (AMB) | payer MEDICARE, SELFPAY ==
--- NOTE | 2024-06-08 08:35 | MHC.PC.OV ---
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 Accompanied by: Self / Same As Patient Allergies SHOAIB Inhibitors Allergy (Intermediate, Verified 06/08/24 08:52) swelling of tongue Medication List - Last Reconciled 06/08/24 by Polo Casas MD amlodipine 10 mg PO DAILY aspirin 81 mg PO DAILY atorvastatin 20 mg PO DAILY blood sugar diagnostic (FreeStyle Lite Strips) 1 strip miscellaneous BID-TID cholecalciferol (vitamin D3) 50 mcg PO DAILY finasteride 5 mg PO DAILY 90 days folic acid 0.4 mg PO DAILY lancets (FreeStyle Lancets) three times a day losartan 50 mg PO DAILY metformin ER 1,000 mg (2 x 500 mg) PO BID omeprazole 20 mg PO DAILY repaglinide 1-2 tab before lunch, 1-3 tabs before dinner PO once; as directed 90 days tadalafil 5 mg PO DAILY 90 days tamsulosin 0.4 mg PO BEDTIME 90 days Tobacco use date assessed: 10/31/23 Fall risk assessment: No Falls in past year Last assessed Fall Risk: 06/08/24 Dental Screening Dental Screen Date: 10/31/23 HPI 3 month f/u - needs microalbumin/creat urine HPI Details DM HTN and hyperlipidemia on rx; doing well; compliant [facility] Medical History COVID-19 vaccine series completed HTN (hypertension) Thalassemia trait Hiatal hernia GERD (gastroesophageal reflux disease) Diabetes mellitus with coincident hypertension 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 Mother No problems noted. Sister Diabetes Brother Diabetes Social History Household Members: Spouse Housing: House Alcohol intake: current Alcohol intake frequency: holidays/special occasions only Patient Tobacco Use Status: Never used Tobacco Tobacco use type: Cigarette e-Cigarette/Vaping Use: Never Used Second Hand Smoke Exposure: No Advance Directives Date on File: 10/04/04 service: Yes Current occupational status: retired Cognitive needs: No Hearing needs: No Vision needs: Yes (glasses) Questionnaire Thrive Questionnaire Date Thrive assessed: 10/31/23 Are you currently unemployed and looking for a job?: No AUDIT C Alcohol Use Questionnaire (AUDIT-C) 2. How many drinks containing alcohol do you have on a typical day when you are drinking?: 1 or 2 Total Score: 0 DREW-7 AMB Questionnaire DREW-7 Date DREW - 7 assessed: 10/31/23 Source: Developed by Drs. Blake Thomas, Audelia Caal, Alexei Johnson and colleagues, with an educational alex from [employer]. Review of Systems Const Denies chills, Denies headache(s) and Denies weight loss ENT Denies headache(s) Card Denies chest pain, Denies syncope, Denies irregular heart rhythm and Denies dyspnea Resp Denies chest congestion, Denies cough and Denies dyspnea GI Denies abdominal pain, Denies change in stool character, Denies nausea and Denies vomiting Musc Denies deformity and Denies joint swelling Neuro Denies syncope and Denies headache(s) Physical exam (Primary Care) Vital Signs: Last Vital Signs Pulse 72 06/08/24 08:42 BP 138/62 06/08/24 08:42 Pulse Ox 95 06/08/24 08:42 Oxygen Delivery Method Room Air 06/08/24 08:42 BMI result Body Mass Index 29.1 Tobacco/Smoking Status: Tobacco use Status Tobacco use date assessed 10/31/23 06/08/24 08:35 Patient Tobacco Use Status Never used Tobacco 06/08/24 08:35 Tobacco use type Cigarette 06/08/24 08:35 e-Cigarette/Vaping Use Never Used 06/08/24 08:35 Thrive Assessment: Date of Thrive Assessment Date Thrive assessed 10/31/23 06/08/24 08:35 Const General: cooperative, comfortable, no acute distress and alert Neck Neck: Yes no lymphadenopathy Thyroid: Thyroid normal Resp Effort & Inspection: normal respiratory effort Auscultation: clear to auscultation bilaterally Percussion: percussion normal Cardio Jugular venous distension: no JVD Palpation: normal PMI Rate: regular rate Rhythm: regular rhythm Heart sounds: S1 normal heart sound present and S2 normal heart sound present GI Inspection: Yes normal to inspection Palpation (GI): No hepatosplenomegaly present Skin General skin exam: no rashes or lesions noted Extrem General: Yes no clubbing, cyanosis or edema Coding Level of Care Code Est Pt Level 4 (62311) Diagnoses Diabetes mellitus with coincident hypertension E11.9; I10 Essential hypertension I10 Hyperlipidemia LDL goal <100 E78.5 Assessment & Plan Assessment & Plan (1) Diabetes mellitus with coincident hypertension: Code(s): E11.9 - Type 2 diabetes mellitus without complications; I10 - Essential (primary) hypertension Category: Medical Plan: stable; same rx (2) Essential hypertension: Code(s): I10 - Essential (primary) hypertension Category: Medical Plan: stable; same rx (3) Hyperlipidemia LDL goal <100: Code(s): E78.5 - Hyperlipidemia, unspecified Category: Medical Plan: stable; same rx Orders: Orders Lipid Panel Today Z13.220 - Encounter for screening for lipoid disorders Glucose Fasting Today R73.9 - Hyperglycemia, unspecified Hemoglobin A1c Today R73.9 - Hyperglycemia, unspecified AMB Hemoglobin A1c 06/07/24 E11.42 - Type 2 diabetes mellitus with diabetic polyneuropathy
[2024-06-08 08:42] VITALS: BP 138/62; PULSE 72; O2SAT 95; BMI 29.1
== END 2024-06-08 09:02 | disposition home or self-care (01) ==
LOC: HO.HMCH 08:23
PROVIDERS: PCP Internal Medicine; Visit Provider Internal Medicine
DX: E11.9 Type 2 diabetes mellitus without complications (principal); I10 Essential (primary) hypertension; E78.5 Hyperlipidemia, unspecified

== ENCOUNTER → 2024-06-08 08:23 | Outpatient (BNVA) | payer MEDICARE, SELFPAY | PROVIDERS: PCP Internal Medicine; Visit Provider Internal Medicine | DX: E11.42 Type 2 diabetes mellitus with diabetic polyneuropathy (principal); I10 Essential (primary) hypertension; E78.5 Hyperlipidemia, unspecified | CPT/HCPCS: 99212 ==

== ENCOUNTER 2024-08-09 09:24 | Outpatient (AMB) | payer MEDICARE, SELFPAY ==
--- NOTE | 2024-08-09 09:25 | MHC.OFFVIS ---
Vital Signs 08/09/24 09:26 Height 5 ft 11 in Weight 209 lb 6 oz BMI 29.2 Intake Visit Reasons: 2 mth follow up Disease of gallbladder Intake Note: This patient presents for two month follow-up for Cholelithiasis. Pt c/o; reports no complaints at this time. 05/29/2024: Abd US Moisture Meter Operator Required: No Accompanied by: Self / Same As Patient Allergies SHOAIB Inhibitors Allergy (Intermediate, Verified 08/09/24 09:30) swelling of tongue Medication List - Last Reconciled 08/09/24 by Amish Gaitan MD amlodipine 10 mg PO DAILY aspirin 81 mg PO DAILY atorvastatin 20 mg PO DAILY blood sugar diagnostic (FreeStyle Lite Strips) 1 strip miscellaneous BID-TID cholecalciferol (vitamin D3) 50 mcg PO DAILY finasteride 5 mg PO DAILY 90 days folic acid 0.4 mg PO DAILY lancets (FreeStyle Lancets) three times a day losartan 50 mg PO DAILY metformin ER 1,000 mg (2 x 500 mg) PO BID omeprazole 20 mg PO DAILY repaglinide 1-2 tab before lunch, 1-3 tabs before dinner PO once; as directed 90 days tadalafil 5 mg PO DAILY 90 days tamsulosin 0.4 mg PO BEDTIME 90 days HPI HPI 2 mth follow up Disease of gallbladder: Details: He is here for follow-up for gallstones. He says that he has had no episode of any right upper quadrant pain since February,. He says he feels well overall. He states that he is in good health. He has good oral intake. 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 Mother No problems noted. Sister Diabetes Brother Diabetes Social History Household Members: Spouse Housing: House Alcohol intake: current Alcohol intake frequency: holidays/special occasions only Patient Tobacco Use Status: Never used Tobacco Tobacco use type: Cigarette e-Cigarette/Vaping Use: Never Used Second Hand Smoke Exposure: No Advance Directives Date on File: 10/04/04 service: Yes Current occupational status: retired Cognitive needs: No Hearing needs: No Vision needs: Yes (glasses) Review of Systems Const Denies chills and Denies fever(s) Card Denies chest pain, Denies dyspnea and Denies dyspnea on exertion Resp Denies cough, Denies dyspnea and Denies dyspnea on exertion GI Denies hematochezia and Denies change in bowel habits Denies hematuria and Denies difficulty urinating Musc Denies back pain and Denies limited range of motion Neuro Denies focal weakness and Denies convulsions Psych Denies depression and Denies mood swings Physical Exam Vital Signs: BMI result Body Mass Index 29.2 Const General: comfortable and no acute distress Orientation/consciousness: patient oriented x3 Neck Neck: Yes no lymphadenopathy Resp Auscultation: clear to auscultation bilaterally Cardio Rhythm: regular rhythm GI Palpation (GI): Soft to palpation, nontender and no guarding Neuro General: patient oriented x3 Assessment & Plan Assessment & Plan (1) Cholelithiasis: Code(s): K80.20 - Calculus of gallbladder without cholecystitis without obstruction Category: Medical Plan: He denies any symptoms. He says that he does not feel that he has had problems with this gallstones and wants to avoid any surgery for now. He understands the risk of symptoms with pain as well as with inflammation. He says he will he will follow up on a p.r.n. basis Coding Level of Care Code Est Pt Level 3 (30468) Diagnoses Cholelithiasis K80.20
[2024-08-09 09:26] VITALS: BMI 29.2
--- OUTSIDE RECORDS SUMMARY | 2024-08-09 09:27 | XMS_ITS ---
Author Organization [facility] Address [address] [place] [address] Care Team Providers Care Manager Wellness Name Role Phone Yessenia SPAIN, Polo Primary Care Provider Unavaila Osvaldo Frazier Unavailable [phone] Fairchild Encounters Encounter Location Date Provider Diagnosis [facility] [address] 08/02/2024 Osvaldo Carrillo Plan Of Treatment Next Appt Details Provider Name:Osvaldo Carrillo , 08/13/2024 03:00:00 PM, [address] [place] [address], [phone], Progress Notes * Ramin PEREIRA LDOB:[birth year] (74 yo M)Acc No.[id number]:08/02/2024 Progress Note Patient:?KELLIRamin Provider:?Osvaldo Carrillo DPM :1950???Age:74 Y???Sex:Male Kirill e:08/02/2024 Address:[address] [place] [id number] Pcp:Polo Casas MD Subjective: * Chief Complaints: * ???1. Dr. Fairchild. * Medical History:? Objective: * Vitals:? Assessment: Plan: * Treatment: * Images: * The named appointment provid er may or may not be the originator of this progress note, and it is not deemed complete until electronically signed by the appointment provider. Sign off status: Pending * Provider:Camryn Carrillo DPM Date:?2023 Generated for Denis pugh/Edyta/Rubina on:?08/09/2024 09:27 AM EST
--- OUTSIDE RECORDS SUMMARY | 2024-08-09 09:28 | XMS_ITS ---
Author Organization [facility] [employer] [employer] Address [address] [place] [address] Care Team Providers Care Plate Setter Name Role Phone Polo Casas MD Primary Care Provider Unavaila Osvaldo Frazier Unavailable [phone] Allergies Allergen (clinical drug ingredient) Drug/Non Drug Allergy documented on EMR Reaction Allergy Type Onset Date Status hydrochlorothiazide Hydrochlorothiazide raises b lood pressure Drug Allergy Active lisinopril Lisinopril tongue swelling Drug Allergy Active REASON FOR VISIT At Risk Footcare, Painful nail(s) aggravated by shoes causing difficulty standing/walking Medications Medication SIG (Take, Route, Frequency, Duration) Notes Start Date End Date Status Omeprazole 20 MG Orally Act anthony Tamsulosin HCl Activ e Vitamin D3 Active Repaglinide 0.5 MG Orally A ctive Extra Depth Orthopedic Shoes (1 Pair) with Customized Heat Molded Multidensity Innersoles (3 Pair) as directed Dx: NIDDM (E11.9), Hammertoe Foot Deformity (M20.41,M20.42), Preulcerative Skin Lesion(s) (L85.1) 01/26/2024 Active metFORMIN HCl 500 MG Orally twice a day Active Atorvastatin Calcium 20 MG Orally Active Finasteride Active Folic Acid 400 MCG 1 tablet Orally Once a day Active Losartan Potassium 50mg once daily Active amLODIPine Besylate 5 MG Orally Active Aspirin 325 MG Orally Activ e Tadalafil Active Social History Tobacco Use: Social History Observation Description Date Details (start date - stop date) Never Smoker NA - NA Tobacco Use/Smoking Question Answer Notes Are you a: nonsmoker Additional Findings: Tobacco Non-User Current no n-smoker Alcohol Screen Question Answer Notes Did you have a drink contain ing alcohol in the past year? Yes How often did you have a dri nk containing alcohol in the past year? Monthly or less (1 point) How many drinks did you have on a typical day when you were drinking in the past year? 1 or 2 drinks (0 point) How often did you have 6 or more drinks on one occasion in the past year? Never (0 point) Points 1 Interpretation Negative Tobacco use other than smoking: Question Answer Notes Are you an other tobacco user? No Vital Signs Height 5ft 11in in 04/26/2024 Weight 206 lbs 04/26/2024 BMI 28.73 kg/m2 04/26/2024 Procedures Procedure Date Ordered Date Performed Result Body Sit e 03035-XWOTKPQ NAIL, 6 OR MORE 04/26/2024 N/A Encounters Encounter Location Date Provider Diagnosis [facility] [address] [address] 04/26/2024 Osvaldo Carrillo Tinea unguium B35.1 ; Pain in right toe(s) M79.674 ; Pain in left toe(s) M79.675 and Type 2 diabetes mellitus without complication E11.9 Assessments Encounter Date Diagnosis (ICD Code) Assessment Notes Treatment Notes Treatment Clinical Notes Section Notes 04/26/2024 Tinea unguium (ICD-10 - B35.1) 04/26/2024 Pain in right toe(s) (ICD-10 - M79.674) 04/26/2024 Pain in left toe(s) (ICD-10 - M79.675) 04/26/2024 Type 2 diabetes mellitus without complication (ICD-10 - E11.9) Plan Of Treatment Pending Test Test Name Order Date [id number] NAIL, 6 OR MORE 04/26/2024 Next Appt Details Follow Up: prn, Reason: Provider Name:Osvaldo Carrillo , 08/13/2024 03:00:00 PM, [address] [address], [place], [address], Procedure Notes * Category Sub-Category Detail Notes Debride Nail 6-10 Nail debridement Performance o f this nail treatment by a nonprofessional would put this patients foot and overall health at risk. Therefore, nail debridement was performed extensively to reduce/remove overall nail length, girth, thickness, subungual debris, and necrotic tissue, by manual and/or electrical means through the use of a nail nipper and/or dremel-type carbon grinder, to a more viable healthy nail plate or bed tissue 6-10. Silver nitrate used for any petechial bleeding as necessary. Definitive antifungal treatment options have been reviewed and discussed with the patient. The patient chooses, no pharmaceutical tx - 34481 Progress Notes * Ramin PEREIRA LDOB:[birth year] (73 yo M)Acc No.[id number]:04/26/2024 Progress Note Patient:?Ramin Pereira Provider:?Osvaldo Carrillo DPM :1950???Age:73 Y???Sex:Male Kirill e:04/26/2024 Address:[address] [place], [place] [phone] Pcp:Polo Casas MD Subjective: * Chief Complaints: * ???At Risk FootcarePainful n ail(s) aggravated by shoes causing difficulty standing/walking * HPI: ???At Risk footcare:?Pt States Last PCP Visit:?Date?01/24/2024 ???Toe pain:?Treatments:?Rx shoes , states still needs - appt scheduled for 05/25.? * ROS:?General/Constitutional:?Nausea?denies.?Vomiting?denies.?Hunger Thirst?denies.?Loss appetite?denies.?Chills?denies.?Fatigue?denies.?Fever?denies.?Night Sweats?denies.?Unexplained weight loss?denies.?Unexplained weight gain?denies.?HEENTM:?Dentures?admits.?Dizziness?denies.?Glasses/contacts?admits.?Retinopathy?de nies.?Blurred/double vision?denies.?TMJ?denies.?Discharge/drainage?denies.?Implants?denies.?Sore throat?denies.?Dental implants?denies.?Hard of hearing ?denies.?Difficulty chewing/swallowing/speaking?denies.?Nose bleeds?denies.?Sore mouth?denies.?Respiratory:?On Oxygen?denies.?Pneumonia/pleurisy?denies.?Bronchitis?denies.?Emphysema?denies.?C oughing?denies.?Cough blood?denies.?Shortness of breath?denies.?Wheezing?denies.?Cardiovascular:?Pacemaker?denies.?MVP?denies.?WPW?denies.?CHF?denies.?Heart attack?denies.?Septal defect?denies.?Rapid beat?denies.?Chest pain ?denies.?Atrial Fib.?denies.?Murmur/Palpitations?denies.?Gastrointestinal:?Hemorrhoids?denies.?Stomach/Abdominal pain?denies.?Dark blood stool?denies.?Irritable bowel ?denies.?Constipation?denies.?Diarrhea?denies.?Hematology:?Swelling?denies.?Clots?denies.?Varicose Veins?denies.?Bruising?denies.?Bleeding problem?denies.?Genitourinary:?Blood urine?denies.?Frequent/Painfu/urination/bladder control?denies.?Kidney stones?denies.?Infection (UTI)?denies.?Nephropathy?denies.?sex trans dis (STD)?denies.?Prostate?denies.?Musculoskeletal:?Hammertoes?admits.?Bunions?denies.?Back Pain?denies.?Muscle Cramps/ Resting?denies.?Muscle cramps / walking?denies.?Generalized aches and pains?denies.?Weakness?denies.?Integ.:?Piña?denies.?Scars?denies.?Corns/calluses?admits.?Ingrown nails?admits.?Painful nails?admits.?Open Sores?denies.?Rashes?denies.?Neurologic:?Difficulty sleeping?denies.?Brain disorder?denies.?Numbness?denies.?Balance trouble?denies.?Confusion?denies.?Fainting/blackouts?denies.?Tingling?denies.?Tr emors?denies.? * Medical History:? * Surgical History:?colonoscop y 07/2021 * Hospitalization/Major Diagno stic Procedure:?CT Scan 09/18/19Urology testing 09/25/19 * Family History:?Mother: dece ased, diagnosed with Other malignant neoplasm of unspecified site.?Father: , diagnosed with Unspecified essential hypertension.?Daughter(s): alive.?Siblings: Sister- Diabetes.?Spouse: alive.? * Social History:?Tobacco Use:?Tobacco Use/Smoking?Are you a:?nonsmoker ?Additional Findings: Tobacco Non-User?Current non-smoker ?Tobacco use other than smoking?Are you an other tobacco user??No ???Drugs/Alcohol:?Drugs?Have you used drugs other than those for medical reasons in the past 12 months??No ?Alcohol Screen?Did you have a drink containing alcohol in the past year??Yes ?How often did you have a drink containing alcohol in the past year??Monthly or less (1 point) ?How many drinks did you have on a typical day when you were drinking in the past year??1 or 2 drinks (0 point) ?How often did you have 6 or more drinks on one occasion in the past year??Never (0 point) ?Points?1 ?Interpretation?Negative ???Miscellaneous:?Caffeine: yes, 2 cups per day. ?Children: yes, one. ?Exercise: yes, walking. ?Marital status: . ?Occupation: [employer]/Retired. * Medications:?TakingTadalafil amLODIPine Besylate 5 MG Tablet Orally Aspirin 325 MG Tablet Delayed Release Orally Atorvastatin Calcium 20 MG Tablet Orally Finasteride Folic Acid 400 MCG Tablet 1 tablet Orally Once a dayLosartan Potassium , Notes: 50mg once dailymetFORMIN HCl 500 MG Tablet Orally twice a dayOmeprazole 20 MG Capsule Delayed Release Orally Tamsulosin HCl Vitamin D3 Repaglinide 0.5 MG Tablet Orally Extra Depth Orthopedic Shoes (1 Pair) with Customized Heat Molded Multidensity Innersoles (3 Pair) as directed Dx: NIDDM (E11.9), Hammertoe Foot Deformity (M20.41,M20.42), Preulcerative Skin Lesion(s) (L85.1)Medication List reviewed and reconciled with the patientTaking Tadalafil Taking amLODIPine Besylate 5 MG Tablet Orally Taking Aspirin 325 MG Tablet Delayed Release Orally Taking Atorvastatin Calcium 20 MG Tablet Orally Taking Finasteride Taking Folic Acid 400 MCG Tablet 1 tablet Orally Once a dayTaking Losartan Potassium , Notes: 50mg once dailyTaking metFORMIN HCl 500 MG Tablet Orally twice a dayTaking Omeprazole 20 MG Capsule Delayed Release Orally Taking Tamsulosin HCl Taking Vitamin D3 Taking Repaglinide 0.5 MG Tablet Orally Taking Extra Depth Orthopedic Shoes (1 Pair) with Customized Heat Molded Multidensity Innersoles (3 Pair) as directed Dx: NIDDM (E11.9), Hammertoe Foot Deformity (M20.41,M20.42), Preulcerative Skin Lesion(s) (L85.1)Medication List reviewed and reconciled with the patient * Allergies:?Lisinopril: aracelis lal swellingHydrochlorothiazide: raises blood pressureyes[Allergies Verified] Objective: * Vitals:?Ht: 5ft 11in, Wt:206 , BMI:28.73, Shoe size: 10, BS: 133, Ht-cm: 180.34 cm, Wt-k.44 kg. * ???Past Orders: ???Lab:HEMOGLOBIN A1C (GLYCO HEMOGLOBIN) (Order Date - 04/26/2024) (Collection Date - 04/26/2024) ? Value Reference Range ?TOTAL HEMOGLOBIN (HGBA1C) 7.8 * Examination: ???Nails: ?NAILS are:?Elongated, overgrown, dystrophic, lytic, greater than 3mm thick, discolored and friable with crumbly malodorous subungual debris, with pain on palpation, TA, T2, T3, T4, T5, T8, T9, remaining nails are elongated, overgrown, dystrophic.? Assessment: * Assessment: 1.?Tinea unguium - B35.1?2.? Pain in right toe(s) - M79.674?3.?Pain in left toe(s) - M79.675?4.?Type 2 diabetes mellitus without complication - E11.9? Plan: * Treatment: * Procedures:?Debride Nail 6-10:?Nail debridement?Performance of this nail treatment by a nonprofessional would put this patients foot and overall health at risk. Therefore, nail debridement was performed extensively to reduce/remove overall nail length, girth, thickness, subungual debris, and necrotic tissue, by manual and/or electrical means through the use of a nail nipper and/or dremel-type carbon grinder, to a more viable healthy nail plate or bed tissue 6-10. Silver nitrate used for any petechial bleeding as necessary. Definitive antifungal treatment options have been reviewed and discussed with the patient. The patient chooses, no pharmaceutical tx - 54467.? * Procedure Codes:?84003 DEBRI DE NAIL, 6 OR MORE * Preventive Medicine:? ??Counseling:?Shoe Gear Counseling:?Patient to obtain shoes hopefully soon.? * Follow Up:?prn * Images: * Sign off status: Completed true * Provider:?Osvaldo Carrillo DPM Date:?2023 Generated for Denis pugh/Edyta/Albasmleonora on:?08/09/2024 09:27 AM EST History and Physical Notes * HPI (History of Present Illness) Category Sub-Category Detail Notes Category Not es Toe pain Treatments: Rx shoes , state s still needs - appt scheduled for 05/25 At Risk footcare Pt States Last PCP Visit: Date: 4 Examination Category Sub-Category Detail Notes Category Not es Nails NAILS are: Elongated, overg rown, dystrophic, lytic, greater than 3mm thick, discolored and friable with crumbly malodorous subungual debris, with pain on palpation, TA, T2, T3, T4, T5, T8, T9, remaining nails are elongated, overgrown, dystrophic
--- OUTSIDE RECORDS SUMMARY | 2024-08-09 09:28 | XMS_ITS | Patient Health Record ---
Author [facility] Address [address] [place] [address] Care Team Providers Care Plater Hot Dip Name Role Phone Polo Casas MD Primary Care Provider Osvaldo Cheung Unavailable [phone] Allergies Allergen (clinical drug ingredient) Drug/Non Drug Allergy documented on EMR Reaction Allergy Type Onset Date Status hydrochlorothiazide Hydrochlorothiazide raises b lood pressure Drug Allergy Active lisinopril Lisinopril tongue swelling Drug Allergy Active Results Component Value Reference Range Notes HEMOGLOBIN A1C (GLYCOHEMOGLO BIN) Reviewed date:01/26/2024 09:44:58 AM Interpretation: Performing Lab: Notes/Report: HEMOGLOBIN A1C % (HH) 7.8 HEMOGLOBIN A1C (GLYCOHEMOGLO BIN) Reviewed date:04/26/2024 10:35:49 AM Interpretation: Performing Lab: Notes/Report: TOTAL HEMOGLOBIN (HGBA1C) 7.8 Reason For Referral No Information Medications Medication SIG (Take, Route, Frequency, Duration) Notes Start Date End Date Status metFORMIN HCl 500 MG Orally twice a day Active Omeprazole 20 MG Orally Act anthony Tamsulosin HCl Activ e Vitamin D3 Active Atorvastatin Calcium 20 MG Orally Active Finasteride Active Folic Acid 400 MCG 1 tablet Orally Once a day Active Losartan Potassium 50mg once daily Active Repaglinide 0.5 MG Orally A ctive amLODIPine Besylate 5 MG Orally Active Extra Depth Orthopedic Shoes (1 Pair) with Customized Heat Molded Multidensity Innersoles (3 Pair) as directed Dx: NIDDM (E11.9), Hammertoe Foot Deformity (M20.41,M20.42), Preulcerative Skin Lesion(s) (L85.1) 01/26/2024 Active Aspirin 325 MG Orally Activ e Tadalafil Active Immunizations Vaccine Route Administration Date Status Comme nts COVID-19 Pfizer BioNTech Vaccine Unknown 10/09/2020 Adm inistered COVID-19 Pfizer BioNTech Vaccine Unknown 10/30/2020 Adm inistered Influenza Unknown 08/07/2019 Administered Influenza Unknown 03/08/2020 Administered Social History Tobacco Use: Social History Observation [...] Are you an other tobacco user? No Problems Problem Type SNOMED Code ICD Code Onset Dates Problem Status W/U Status Risk Notes Problem Acquired hammer toe of right foot (58980281913144 05) Other hammer toe(s) (acquired), right foot (M20.41) Active confirmed Response to treatment,I mprovement Problem Acquired hammer toe of left foot (14145231660374 03) Other hammer toe(s) (acquired), left foot (M20.42) Active confirmed Response to treatment,I mprovement Problem Type 2 diabetes mellitus without complication (529171779) Type 2 diabetes mellitus without complication (E11.9) Active confirmed Vital Signs Height 5ft 11in in 04/26/2024 Weight 206 lbs 04/26/2024 BMI 28.73 kg/m2 04/26/2024 Procedures Procedure Date Ordered Date Performed Result Body Sit e 20375-RWEJYVH NAIL, 6 OR MORE 10/27/2023 N/A 94468-[id number] NAIL, 6 OR MORE 01/26/2024 N/A 82223-[id number] NAIL, 6 OR MORE 04/26/2024 N/A Encounters Encounter Location Date Provider Diagnosis [address] [address] 10/27/2023 Osvaldo Lorena Pain of toe of right foot M79.674 ; Onychomycosis B35.1 ; Pain of toe of left foot M79.675 and Type 2 diabetes mellitus without complication E11.[address] [address] 01/26/2024 Osvaldo Lorena Pain of toe of right foot M79.674 ; Onychomycosis B35.1 ; Pain of toe of left foot M79.675 ; Type 2 diabetes mellitus without complication E11.9 ; Other hammer toe(s) (acquired), right foot M20.41 and Other hammer toe(s) (acquired), left foot M20.[address] [address] 04/26/2024 Osvaldo Carrillo Tinea unguium B35.1 ; Pain in right toe(s) M79.674 ; Pain in left toe(s) M79.675 and Type 2 diabetes mellitus without complication E11.9 Assessments Encounter Date Diagnosis (ICD Code) Assessment Notes Treatment Notes Treatment Clinical Notes Section Notes 10/27/2023 Pain of toe of right foot (ICD-10 - M79.674) 01/26/2024 Pain of toe of right foot (ICD-10 - M79.674) 04/26/2024 Tinea unguium (ICD-10 - B35.1) 04/26/2024 Pain in right toe(s) (ICD-10 - M79.674) 04/26/2024 Pain in left toe(s) (ICD-10 - M79.675) 01/26/2024 Onychomycosis (ICD-10 - B35.1) 01/26/2024 Pain of toe of left foot (ICD-10 - M79.675) 10/27/2023 Onychomycosis (ICD-10 - B35.1) 10/27/2023 Pain of toe of left foot (ICD-10 - M79.675) 10/27/2023 Type 2 diabetes mellitus without complication (ICD-10 - E11.9) 01/26/2024 Type 2 diabetes mellitus without complication (ICD-10 - E11.9) 04/26/2024 Type 2 diabetes mellitus without complication (ICD-10 - E11.9) 01/26/2024 Other hammer toe(s) (acquired), right foot (ICD-10 - M20.41) Patient Educated with: DIABETIC FOOT CARE INSTRUCTIONS.p df (DIABETIC FOOT CARE INSTRUCTIONS.p df) 01/26/2024 Other hammer toe(s) (acquired), left foot (ICD-10 - M20.42) Plan Of Treatment Pending Test Test Name Order Date [id number] NAIL, 6 OR MORE 06/27/2019 [id number] NAIL, 6 OR MORE 09/27/2019 08651-FSYYLIG NAIL, 6 OR MORE 12/27/2019 [id number] NAIL, 6 OR MORE 03/27/2020 [id number] NAIL, 6 OR MORE 06/25/2020 [id number] NAIL, 6 OR MORE 09/25/2020 [id number] NAIL, 6 OR MORE 12/25/2020 85406-[id number] NAIL, 6 OR MORE 03/26/2021 34284-ZQYKODM NAIL, 6 OR MORE 06/25/2021 92233-[id number] NAIL, 6 OR MORE 10/01/2021 03333-[id number] NAIL, 6 OR MORE 12/23/2021 45441-[id number] NAIL, 6 OR MORE 04/05/2022 02346-[id number] NAIL, 6 OR MORE 07/07/2022 85240-OKGGNAP NAIL, 6 OR MORE 10/06/2022 78111-[id number] NAIL, 6 OR MORE 01/06/2023 82727-KYXBKWS NAIL, 6 OR MORE 04/14/2023 00412-NXGHWXD NAIL, 6 OR MORE 07/21/2023 81757-KLTQECR NAIL, 6 OR MORE 10/27/2023 70375-[id number] NAIL, 6 OR MORE 01/26/2024 46329-[id number] NAIL, 6 OR MORE 04/26/2024 Next Appt Details Provider Name:Osvaldo Carrillo , 08/13/2024 03:00:00 PM, [address] [facility] [address], [place], [address], Insurance Providers Payer Name Payer Address Payer Phone Subscriber Number Group Number Insured Name Patient Relationship to Insured Coverage Start Date Coverage End Date [employer] [place] [employer] Advantage [address] [place] [address] [id number] Ramin Canales Self - patient is the insured Medical (General) History Medical History History ICD Code Diabetic Hiatal hernia High blood pressure Reflux ( GERD) Measles Mumps Chicken pox Gallstones Surgical History Surgery Date(Month/Year) colonoscopy 07/2021 Hospitalization History Reason Date(Month/Year) Urology testing 09/25/19 CT Scan 09/18/19
--- OUTSIDE RECORDS SUMMARY | 2024-08-09 09:28 | XMS_ITS ---
Author Organization [facility] Address [address] [place] [address] Care Team Providers Care Sack Filler Name Role Phone Polo Casas MD Primary Care Provider Unavaila Osvaldo Frazier Unavailable [phone] Allergies Allergen (clinical drug ingredient) Drug/Non Drug Allergy documented on EMR Reaction Allergy Type Onset Date Status hydrochlorothiazide Hydrochlorothiazide raises b lood pressure Drug Allergy Active lisinopril Lisinopril tongue swelling Drug Allergy Active REASON FOR VISIT At Risk Footcare, Painful Nail(s) aggrevated by shoes and causing difficulty standing/walking., ToeIrritation Medications Medication SIG (Take, Route, Frequency, Duration) Notes Start Date End Date Status Vitamin D3 Active Repaglinide 0.5 MG Orally A ctive metFORMIN HCl 500 MG Orally twice a day Active Omeprazole 20 MG Orally Act anthony Tamsulosin HCl Activ e Aspirin 325 MG Orally Activ e Atorvastatin Calcium 20 MG Orally Active Finasteride Active Folic Acid 400 MCG 1 tablet Orally Once a day Active Losartan Potassium 50mg once daily Active Tadalafil Active amLODIPine Besylate 5 MG Orally Active Extra Depth Orthopedic Shoes (1 Pair) with Customized Heat Molded Multidensity Innersoles (3 Pair) as directed Dx: NIDDM (E11.9), Hammertoe Foot Deformity (M20.41,M20.42), Preulcerative Skin Lesion(s) (L85.1) 01/26/2024 Active Social History Tobacco Use: Social History [...] No Vital Signs Height 5ft 11in in 01/26/2024 Weight 203 lbs 01/26/2024 BMI 28.31 kg/m2 01/26/2024 Procedures Procedure Date Ordered Date Performed Result Body Sit e 96013-MOBWQMB NAIL, 6 OR MORE 01/26/2024 N/A Encounters Encounter Location Date Provider Diagnosis [facility] [address] [address] 01/26/2024 Osvaldo Carrillo Pain of toe of right foot M79.674 ; Onychomycosis B35.1 ; Pain of toe of left foot M79.675 ; Type 2 diabetes mellitus without complication E11.9 ; Other hammer toe(s) (acquired), right foot M20.41 and Other hammer toe(s) (acquired), left foot M20.42 Assessments Encounter Date Diagnosis (ICD Code) Assessment Notes Treatment Notes Treatment Clinical Notes Section Notes 01/26/2024 Pain of toe of right foot (ICD-10 - M79.674) 01/26/2024 Onychomycosis (ICD-10 - B35.1) 01/26/2024 Pain of toe of left foot (ICD-10 - M79.675) 01/26/2024 Type 2 diabetes mellitus without complication (ICD-10 - E11.9) 01/26/2024 Other hammer toe(s) (acquired), right foot (ICD-10 - M20.41) Patient Educated with: DIABETIC FOOT CARE INSTRUCTIONS.p df (DIABETIC FOOT CARE INSTRUCTIONS.p df) 01/26/2024 Other hammer toe(s) (acquired), left foot (ICD-10 - M20.42) Plan Of Treatment Medication Medication Name Sig Start Date Stop Date Notes Extra Depth Orthopedic Shoes (1 Pair) with Customized Heat Molded Multidensity Innersoles (3 Pair) as directed Dx: NIDDM (E11.9), Hammertoe Foot Deformity (M20.41,M20.42), Preulcerative Skin Lesion(s) (L85.1) 01/26/2024 Treatment Notes Assessment Notes Other hammer toe(s) (acquired), right fo ot Patient Educated with: DIABETIC FOOT CARE INSTRUCTIONS.pdf (DIABETIC FOOT CARE INSTRUCTIONS.pdf) Pending Test Test Name Order Date [id number] NAIL, 6 OR MORE 01/26/2024 Next Appt Details Follow Up: prn, Reason: Provider Name:Osvaldo Carrillo , 08/13/2024 03:00:00 PM, [address] [facility], [address], [place], [address], Procedure Notes * Category Sub-Category Detail Notes Debride Nail 6-10 Nail debridement Nail debridem ent performed extensively to reduce/remove overall nail length, girth, thickness, subungual debris, and necrotic tissue, by manual and electrical means through the use of a nail nipper and/or dremel, to more viable healthy nail plate or bed tissue 1-5. Silver nitrate used for any petechial bleeding as necessary. Patient chooses, no pharmaceutical tx (57209) Progress Notes * Ramin PEREIRA LDOB:[birth year] (73 yo M)Acc No.[id number]:01/26/2024 Progress Note Patient:?Ramin Pereira Provider:?Osvaldo Carrillo DPM :1950???Age:73 Y???Sex:Male Kirill e:01/26/2024 Address:[address] [place] [id number] Pcp:Polo Casas MD Subjective: * Chief Complaints: * ???At Risk FootcarePainful N ail(s) aggrevated by shoes and causing difficulty standing/walking.Toe Irritation * HPI: ???At Risk footcare:?Pt States Last PCP Visit:?Date?10/31/2023 ???Toe pain:?Location:?B/L feet.?Duration:?several years.?Course:?worse.?Aggrevated by:?shoes, any pressure.?Treatments:?change in shoes.? * ROS:?General/Constitutional:?Nausea?denies.?Vomiting?denies.?Hunger Thirst?denies.?Loss appetite?denies.?Chills?denies.?Fatigue?denies.?Fever?denies.?Night Sweats?denies.?Unexplained weight loss?denies.?Unexplained [...] ?Exercise: yes, walking. ?Marital status: . ?Occupation: [employer]/Retired. * Medications:?TakingTadalafil amLODIPine Besylate 5 MG Tablet Orally Aspirin 325 MG Tablet Delayed Release Orally Atorvastatin Calcium 20 MG Tablet Orally Finasteride Folic Acid 400 MCG Tablet 1 tablet Orally Once a dayLosartan Potassium , Notes: 50mg once dailymetFORMIN HCl 500 MG Tablet Orally twice a dayOmeprazole 20 MG Capsule Delayed Release Orally Tamsulosin HCl Vitamin D3 Repaglinide 0.5 MG Tablet Orally Medication List reviewed and reconciled with the patientTaking [...] D3 Taking Repaglinide 0.5 MG Tablet Orally Medication List reviewed and reconciled with the patient * Allergies:?Lisinopril: aracelis lal swellingHydrochlorothiazide: raises blood pressureyes[Allergies Verified] Objective: * Vitals:?Ht: 5ft 11in, Wt:203 , BMI:28.31, Shoe size: 10, BS: 134, Ht-cm: 180.34 cm, Wt-k.08 kg. * ???Past Orders: ???Lab:HEMOGLOBIN A1C (GLYCO HEMOGLOBIN) (Order Date - 01/26/2024) (Collection Date - 01/26/2024) ? Value Reference Range ?HEMOGLOBIN A1C % (HH) 7.8 * Examination: ???Nails: ?NAILS are:?Elongated, overgrown, dystrophic, lytic, greater than 3mm thick, discolored and friable with crumbly malodorous subungual debris, with pain on palpation, TA, T2, T3, T4, T5, T8, T9, remaining nails are elongated, overgrown, dystrophic.?Orthopedic: ?MUSCLE STRENGTH:?5/5 all groups in a symmetrical fashion, B/L.?FOOT MORPHOLOGY:?Pes Planus structure , (-) Charcot collapse/destruction noted at MTJ.?DIGITAL DEFORMITIES:?Digital contracture, PIPJ, 2-5 B/L, incompl-reducible to push-up test, no over, nor underlapping, with evidence of shoe producing skin irritation.?FOOTWEAR:?worn, OT were inspected and noted to be severely worn , in poor condition not giving proper support at the present time , shoe gear properties exacerbate patients foot/toe deformity.?Dermatologic: ?SKIN FINDINGS:? Skin exam reveals Keratotic lesion(s) located at, Medial, IPJ, TA, Medial, IPJ, T5.?Vascular: ?DP PULSES:? 1/4, B/L.?PT PULSES:? 08/11, B/L.?CAPILLARY FILL TIME:? 3 secs. per digit, B/L.?SKIN TEMPERTURE GRADIENT OF THE LOWER EXTERMITIES:?normal, warm to cool, proximal to distal, B/L, B/L.?HAIR GROWTH/TEXTURE/ELASTICITY/TURGOR:?normal, B/L.?PIGMENTATION:?normal, B/L.?EDEMA:?absent, B/L.?CLAUDICATION:?denies, B/L.?REST PAIN:?denies, B/L.?Neurological: ?SENSORY:?Neurological exam reveals intact sensorium, pain sensation normal, vibration sensation intact, pinprick sensation is normal in the lower extremities, 5.07 monofilament test performed at plantar aspects of 5 varied sites per foot shows sensation, normal, B/L, Pt denies, anesthesia, burning, paresthesia, tingling, B/L.?Ophthalmology Referral: ?DIABETES EYE EXAM?General Examination: ?GENERAL APPEARANCE:?Reveals a pleasant, alert, well nourished, well developed, well hydrated individual, who demonstrates proper attention to hygiene/body habitus, and is in no acute distress , Pt serves as own historian for office visit today.?ORIENTED:?person, place, and time.?FOOT EXAM:?Footwear Evaluation? Assessment: * Assessment: 1.?Pain of toe of right foot - M79.674?2.?Pain of toe of left foot - M79.675?3.?Onychomycosis - B35.1 (Primary)?4.?Type 2 diabetes mellitus without complication - E11.9?5.?Other hammer toe(s) (acquired), right foot - M20.41, Chronic problem, Worse (4),Rx Management (4)?6.?Other hammer toe(s) (acquired), left foot - M20.42, Chronic problem, Worse (4),Rx Management (4)? Plan: * Treatment: 2.?Other hammer toe(s) (acqu ired), right foot? Start Extra Depth Orthopedic Shoes (1 Pair) with Customized Heat Molded Multidensity Innersoles (3 Pair), as directed, Dx: NIDDM (E11.9), Hammertoe Foot Deformity (M20.41,M20.42), Preulcerative Skin Lesion(s) (L85.1), 1, Refills 0.?? Notes: Patient Educated with: DIABETIC FOOT CARE INSTRUCTIONS.pdf (DIABETIC FOOT CARE INSTRUCTIONS.pdf)?? * Procedures:?Debride Nail 6-10:?Nail debridement?Nail debridement performed extensively to reduce/remove overall nail length, girth, thickness, subungual debris, and necrotic tissue, by manual and electrical means through the use of a nail nipper and/or dremel, to more viable healthy nail plate or bed tissue 1-5. Silver nitrate used for any petechial bleeding as necessary. Patient chooses, no pharmaceutical tx (72932).? * Procedure Codes:?71364 DEBRI DE NAIL, 6 OR MORE * Preventive Medicine:? ??Counseling:?Discussion:?-14: Office or other outpatient visit for the evaluation and management of an established patient, which required a medically appropriate history and/or examination and MODERATE level of DECISION MAKING for: 1 OR MORE CHRONIC PROBLEM(S) THATS WORSENING, 2 STABLE CHRONIC PROBLEMS, A NEWLY DIAGNOSED PROBLEM WITH UNCERTAIN PROGNOSIS, AN ACUTE COMPLICATED INJURY WITH MULTIPLE TREATMENT OPTIONS, OR AN ACUTE PROBLEM WITH ACCOMPANYING SYSTEMIC SYMPTOMS, THAT POSE(S) A MODERATE RISK OF MORBIDITY. THIS CONDITION MAY ALSO INCLUDE RX DRUG MANAGEMENT, OR A DECISON FOR MINOR SURGERY. The visit on the day of the encounter encompassed interpreting the data and educating the patient as to the nature of their condition, treatment options available according to their individual PMH, meds, allergies, and overall health/living conditions, as well as any potential risks or complications that may occur from a failure to adhere to, and participate in, the recommended course of therapy. The discussion included a complete verbal, and/or written explanation of the examination results, any x-rays taken, the proposed diagnosis, and outline of the treatment plan. A schedule for future care needs was also explained. The patient verbalized an understanding of the instructions at this time and agreed to be an active participant in their treatment. If the patient should think of any questions or concerns after the visit, I have encouraged the patient to call the office.?Digital Surgery:?Digital surgery was discussed with the patient, We elected to try conservative treatment at the present time, due to the patients medical history and increased asssociated post-operative risks.?Digital Treatment:?HT- I explained to the patient the possible etiologies of Hammertoes, including genetics/foot type/shoegear/activity level/exercise routine and the risks/benefits of all the different treatment options for their pain including: No treatment at all, Rest, Ice, New/supportive/wider/deeper Shoegear, Digital Padding/Strapping/Taping/Bracing/Gel protective sleeves, Foot/Ankle AFO Bracing, Stretching exercises, Deep Tissue Massage, Arch support/shoe inserts with splay metatarsal padding, and Custom orthoses. I insisted that any digital devices be removed daily and not worn overnight for safety. The patient is to carefully examine the toes daily for any skin irritation while using any splinting or padding device. The advantages and disadvantages of each option were discussed and the patients questions re: shoegear, padding, custom vs prefabricated inserts, activity level, and consistency in home treatment regimens for optimal success were answered to their verbally confirmed satisfaction.?Shoe Gear Counseling:?SHOE Rx - The patient was counseled in great detail on their muscoloskeletal foot and toe deformities which coincided with the dermatological presentations visualized on exam. We discussed how their deformities put the integrity of their feet at risk for potential pedal complications which makes the accomidative diabetic shoes and cutomizable inserts medically necessary. We discussed the different shoe and insert treatment types and options, as well as the important advantages for adhering to regularly wearing these accomidative devices daily. The patient was made aware of the fact that a failure to abide by these recommedations may be deleterious to their foot health as they are able to prevent many pedal complications such as skin irritation, skin ulceration, infection, and even loss of toe/foot/leg/or life. Time was also spent with the patient dispensing and discussing proper diabetic footcare techniques including daily skin moisturization, daily foot inspection for any interruption in skin integrity including open lesions, or sign of infection such as redness/malodor/drainage/swelling. Also discussed and recommended were procedures regarding daily shoe inspection for the presence of internal foreign bodies as well as any visualized irregular shoe or insert wear. Patient questions re: shoes, inserts, and self foot inspections were answered to their satisfaction as the patient verbally confirmed a full understanding of the above information. A Rx for Extra Depth Orthopedic Shoes with 3 pair of custom heat-molded inserts was dispensed.? ??Screening/Special Tests:?Fall Risk?Assessment:?Performed ?Plan of Care:?Documented ?Screening:?No falls in the past year ?FALLS: Screening for Future Fall Risk?Have you had any falls with injury in the past year??No * Follow Up:?prn * Images: * Sign off status: Completed Addendum: * ? true * Provider:?Osvaldo Carrillo DPM Date:?2023 Generated for Denis pugh/Edyta/Rubina on:?08/09/2024 09:27 AM EST History and Physical Notes * HPI (History of Present Illness) Category Sub-Category Detail Notes Category Not es Toe pain Location: B/L feet Duration: several years Course: worse Aggravated by: shoes, any pressure Treatments: change in shoes At Risk footcare Pt States Last PCP Visit: Date: Examination Category Sub-Category Detail Notes Category Not es Neurological SENSORY: Neurological exa m reveals intact sensorium, pain sensation normal, vibration sensation intact, pinprick sensation is normal in the lower extremities, 5.07 monofilament test performed at plantar aspects of 5 varied sites per foot shows sensation, normal, B/L, Pt denies, anesthesia, burning, paresthesia, tingling, B/L Dermatologic SKIN FINDINGS: Skin exam reveal s Keratotic lesion(s) located at, Medial, IPJ, TA, Medial, IPJ, T5 Orthopedic FOOT MORPHOLOGY: Pes Planus stru cture , (-) Charcot collapse/destruction noted at MTJ FOOTWEAR: worn, OT were inspec janelle and noted to be severely worn , in poor condition not giving proper support at the present time , shoe gear properties exacerbate patients foot/toe deformity DIGITAL DEFORMITIES: Digital contracture , PIPJ, 2-5 B/L, incompl-reducible to push-up test, no over, nor underlapping, with evidence of shoe producing skin irritation MUSCLE STRENGTH: 5/5 all groups in a symmetrical fashion, B/L General Examination GENERAL APPEARANCE: Reveals a pleasant, alert, well nourished, well developed, well hydrated individual, who demonstrates proper attention to hygiene/body habitus, and is in no acute distress , Pt serves as own historian for office visit today FOOT EXAM: Lower Extremity Neurological Exa m performed:: Yes ORIENTED: person, place, and t laura Footwear Evaluation Footwear Evaluation performe d:: Yes Ophthalmology Referral DIABETES EYE EXAM Diabetic Retinopa thy Screening:: Yes Findings of Diabetic Eye Exam:: no retin opathy Vascular DP PULSES (B): 1/4, B/L PT PULSES (B): 1/4, B/L CAPILLARY FILL TIME: 3 secs. per digit, B/L TEMPERTURE GRADIENT (C): normal, warm to cool, proximal to distal, B/L, B/L TROPHIC CONDITION-TEXTURE/ELASTICITY/TURGOR/HAIR GROWTH (B): normal, B/L EDEMA (C): absent, B/L CLAUDICATION (C): denies, B/L REST PAIN: denies, B/L PIGMENTATION: normal, B/L Nails NAILS are: Elongated, overg rown, dystrophic, lytic, greater than 3mm thick, discolored and friable with crumbly malodorous subungual debris, with pain on palpation, TA, T2, T3, T4, T5, T8, T9, remaining nails are elongated, overgrown, dystrophic
--- OUTSIDE RECORDS SUMMARY | 2024-08-09 09:28 | XMS_ITS | Patient Health Record ---
Author Organization [facility] Address [address] [place] [address] Care Team Providers Care Assembler Skylights Name Role Phone Yessenia SPAIN, Polo Primary Care Provider Cornelio Serna Jr Unavailable ALLERGIES Allergen (clinical drug ingredient) Drug/Non Drug Allergy documented on EMR Reaction Allergy Type Onset Date Status angiotensin-converting enzyme inhibitor (FN) SHOAIB Inhibitors Unknown Drug Allergy Acti ve REASON FOR REFERRAL No Information MEDICATIONS Medication SIG (Take, Route, Frequency, Duration) Notes Start Date End Date Status MiraLax (colon prep) 17 GM/SCOOP mixed with Gatorade or Crystal Light Orally begin at 5:00 p.m. the day before the procedure for 1 day 06/22/2021 Active Tamsulosin HCl 0.4 MG 1 capsule Orally O nce a day for 30 day(s) Active Finasteride 5 MG 1 tablet Orally Once a day for 30 day(s) Active Repaglinide 0.5 MG 1 tablet 15 to 30 mi nutes before meals Orally Twice a day for 30 day(s) Active Folic Acid 400 MCG 1 tablet Orally Once a day for 30 day(s) Active Atorvastatin Calcium 20 MG 1 tablet Oral ly Once a day for 30 day(s) Active amLODIPine Besy-Benazepril HCl 10-20 MG as directed Orally Active Losartan Potassium 50 MG 1 tablet Orally Once a day for 30 day(s) Active metFORMIN HCl 500 MG 1 tablet with meals Orally Twice a day Active Omeprazole 20 MG 1 tablet 30 minutes before morning meal Orally Active Aspirin Adult Low Dose Active IMMUNIZATIONS Vaccine Route Administration Date Status Comme nts Influenza Unknown 05/04/2021 Administered SOCIAL HISTORY Sex Assigned At : Social History Observation Description Sex Assigned At Unknown PROBLEMS Problem Type ICD Code Onset Dates Problem Status W/U Status Risk SNOMED Code Notes Problem Colon cancer screening (Z12.11) Active confirmed 785150001 Problem [facility] current use of aspirin (Z79.82) Active confirmed 081796677 Problem Encounter for long-term (current) use of other high-risk medications (Z79.899) Active confirmed 524357792 Problem Personal history of colonic polyps (Z86.010) Active confirmed 781798244 Problem Long-term use of aspirin therapy (Z79.82) Active confirmed 417971484 PLAN OF TREATMENT Future Test Test Name Order Date COLONOSCOPY 10/09/2015 COLONOSCOPY 06/22/2021 Insurance Providers Payer Name Payer Address Payer Phone Subscriber Number Group Number Insured Name Patient Relationship to Insured Coverage Start Date Coverage End Date [facility] [address] [facility] [place] [phone] [id number] ERNESTINE PEREIRA Self - patient is the insured MEDICAL (GENERAL) HISTORY Medical History History ICD Code Colonoscopy 01/21, limited pr ep, no polyps, five-year followup, and previous history of tubular adenomas gerd hiatal hernia Thalassemia trait type II diabetes Hypertension Elevated cholesterol BPH Surgical History Surgery Date(Month/Year)
== END 2024-08-09 09:41 | disposition home or self-care (01) ==
PROVIDERS: PCP Internal Medicine; Visit Provider Surgery
DX: K80.20 Calculus of gallbladder without cholecystitis without obstruction (principal)
CPT/HCPCS: 99213

== ENCOUNTER → 2024-08-09 09:24 | Outpatient (BNVA) | payer MEDICARE, SELFPAY | PROVIDERS: PCP Internal Medicine; Visit Provider Surgery | DX: K80.20 Calculus of gallbladder without cholecystitis without obstruction (principal) | CPT/HCPCS: 99212 ==

== ENCOUNTER 2024-09-11 09:27 | Outpatient (REF) | payer MEDICARE, SELFPAY ==
[2024-09-11 10:08] LABS: Estimated Average Glucose 206 mg/dL; Hemoglobin A1c % 8.8 % (<6.0); Total Hemoglobin (HGBA1C) 3156.7425 umol/L
[2024-09-11 10:35] LABS: Cholesterol 111 mg/dL (<200); Glucose Fasting 127 mg/dL (60-99); HDL Cholesterol 37 mg/dL (>40); LDL Cholesterol Calculated 57 mg/dL (<100); Triglycerides 85 mg/dL (<150)
== END 2024-09-11 09:28 | disposition home or self-care (01) ==
LOC: HO.LAB 09:27
PROVIDERS: Visit Provider Internal Medicine
DX: R73.9 Hyperglycemia, unspecified (principal); Z13.220 Encounter for screening for lipoid disorders
CPT/HCPCS: 36415; 80061; 82947; 83036

== ENCOUNTER → 2024-09-14 10:17 | Outpatient (BNVA) | payer MEDICARE, SELFPAY | PROVIDERS: PCP Internal Medicine; Visit Provider Internal Medicine | DX: E11.9 Type 2 diabetes mellitus without complications (principal); I10 Essential (primary) hypertension | CPT/HCPCS: 96127; 99212 ==

== ENCOUNTER → 2024-09-14 10:17 | Outpatient (AMB) | payer MEDICARE, SELFPAY | END | disposition home or self-care (01) | PROVIDERS: PCP Internal Medicine; Visit Provider Internal Medicine ==

== ENCOUNTER 2024-10-26 10:53 | Outpatient (AMB) | payer MEDICARE, SELFPAY ==
--- NOTE | 2024-10-26 10:57 | MHC.OFFVIS ---
Intake Visit Reasons: 6m/PVR Intake Note: Patient is Present for 6 month/PVR Urology Med: Tamsulosin, Finasteride, Tadalafil Antibiotic Allergy: None Blood Thinner: Aspirin Todays PVR:67mL Decator Operator Required: No Accompanied by: Self / Same As Patient Allergies SHOAIB Inhibitors Allergy (Intermediate, Verified 10/26/24 10:57) swelling of tongue HPI Comments Details: Ramin PEREIRA is a very pleasant male. They are a patient of Dr Casas. . He is seen for the following urologic conditions - lower urinary tract symptoms - erectile dysfunction Current PVR 70 cc Known large bladder diverticulum Remains on finasteride Tuesday, Tuesday, Tuesday - Continue daily tadalafil 5 mg Have previously recommended GreenLight laser prostatectomy with bladder diverticula laser Lower Urinary Tract Symptoms: Did well with combination therapy - finasteride, tamsulosin PSA 02/25 0.2, 03/29 0.3 Will continue Nocturia reduced from 1-2 times from 3-4. Current visit is for further evaluation of, lower urinary tract symptoms, predominate obstructive symptoms. Prostate Symptom Score Moderate (9-19), Bother 3. Symptoms include incomplete emptying, weak stream, nocturia (>2), and are improving Erectile dysfunction in setting of diabetes Switch to daily tadalafil Responsive to sildenafil Associated diabetes, and dyslipidemia, and hypertension HBA1c - 12/28 8.2% Microscopic Hematuria: Microscopic hematuria was diagnosed during routine UA - probable UTI. They are here for further evaluation. Relevant medical history for prior , tobacco use and UTI's Radiographic imagin/20 , CT KUB - multiple bladder diverticula, enlarged prostate, cyst on right kidney 2 cm. 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 Mother No problems noted. Sister Diabetes Brother Diabetes Social History Household Members: Spouse Housing: House Alcohol intake: current Alcohol intake frequency: holidays/special occasions only Patient Tobacco Use Status: Never used Tobacco Tobacco use type: Cigarette e-Cigarette/Vaping Use: Never Used Second Hand Smoke Exposure: No Advance Directives Date on File: 10/04/04 service: Yes Current occupational status: retired Cognitive needs: No Hearing needs: No Vision needs: Yes (glasses) Review of Systems Const Denies chills and Denies fever(s) Card Reports no additional complaints and Denies syncope Resp Denies cough GI Denies abdominal pain and Denies heartburn Reports as per HPI and Denies change in libido Neuro Denies syncope Psych Denies change in libido Endo Denies change in libido Physical Exam Const General: cooperative, healthy appearing, comfortable and no acute distress Orientation/consciousness: patient oriented x3 HEENT Face and sinus: Yes normal facial exam Mouth: moist mucous membranes Neck Neck: Yes normal visual inspection, Yes full ROM and Yes trachea midline Chest Chest palpation & inspection: normal inspection of the chest Resp Effort & Inspection: normal respiratory effort, able to speak in complete sentences and no respiratory distress GI Inspection: Yes normal to inspection Back/Spine/Pelvis Cervical Spine: normal cervical lordosis Thoracic/Lumbar Spine: thoracic and lumbar spine normal to inspection Skin General skin exam: no rashes or lesions noted Neuro General: patient oriented x3, gait normal, tone normal and moves all extremities Extrem General: Yes normal to inspection and Yes capillary refill normal Office Procedures Post Void Residual Post Residual Void Post Void Residual (PVR): 67 [id number] Void Residual by ultrasound Assessment & Plan Assessment & Plan (1) Bladder outlet obstruction: Code(s): N32.0 - Bladder-neck obstruction Category: Medical (2) Bladder diverticulum: Code(s): N32.3 - Diverticulum of bladder Category: Medical (3) Erectile dysfunction associated with type 2 diabetes mellitus: Code(s): E11.69 - Type 2 diabetes mellitus with other specified complication; N52.1 - Erectile dysfunction due to diseases classified elsewhere Category: Medical Plan Six-month follow-up PVR Orders: Orders AMB Post Void Residual by ultrasound 10/26/24 R33.9 - Retention of urine, unspecified Patient Instructions: This note is constructed using voice recognition software. While every effort has been made to ensure accuracy registered midwife errors may have been included. Imaging studies, laboratory and physical exam results were discussed and reviewed in detail. No major barriers to patient understanding were identified. An opportunity to ask questions regarding the treatment plan was provided. All questions were answered. The patient expressed understanding and agreement with the above treatment plan. The patient is aware they should contact our office by phone for worsening of their current condition or the appearance of new urologic symptoms. Compliance is encouraged with any medications and followup testing that is ordered. It is a privilege to participate in the urologic care of your patient. If you have any questions or concerns regarding treatment for the above conditions, or other urologic issues, please do not hesitate to contact me. The office telephone contact is [phone]. Sincerely, Dr Tray Farias MD, [facility] - Urology Compassionate Specialist Care for the Genitourinary System Coding Level of Care Code Est Pt Level 3 (62521) Complex EM visit Add On G2211 Diagnoses Bladder outlet obstruction N32.0 Bladder diverticulum N32.3 Erectile dysfunction associated with type 2 diabetes mellitus E11.69; N52.1 CPT Codes Post Residual Void - PVR CPT Code: 96225-Gtwc Void Residual by ultrasound ([id number])
== END 2024-10-26 11:31 | disposition home or self-care (01) ==
LOC: HO.HUSH 10:53
PROVIDERS: PCP Internal Medicine; Visit Provider Urology
DX: N32.0 Bladder-neck obstruction (principal); N32.3 Diverticulum of bladder; E11.69 Type 2 diabetes mellitus with other specified complication; N52.1 Erectile dysfunction due to diseases classified elsewhere
CPT/HCPCS: 99213; G2211

== ENCOUNTER → 2024-10-26 10:53 | Outpatient (BNVA) | payer MEDICARE, SELFPAY | PROVIDERS: PCP Internal Medicine; Visit Provider Urology | DX: N32.0 Bladder-neck obstruction (principal); N32.3 Diverticulum of bladder; E11.69 Type 2 diabetes mellitus with other specified complication; N52.1 Erectile dysfunction due to diseases classified elsewhere | CPT/HCPCS: 51798; 99212 ==

== ENCOUNTER 2024-12-18 08:45 | Outpatient (AMB) | payer MEDICARE, SELFPAY ==
--- NOTE | 2024-12-18 08:49 | MHC.PC.OV ---
Vital Signs 12/18/24 08:50 Height 5 ft 11 in Weight 207 lb 6 oz BMI 28.9 BP 130/68 Blood Pressure Location Lt brachial Position Sitting Pulse 70 Pulse Source Pulse Oximeter Temp 97.1 F Temp Source Temporal Artery Scan Pulse Oximetry (%) 97 Oxygen Delivery Method Room Air Intake Visit Reasons: eli from [facility]/3 mo follow up Intake Note: Patient is here today for ELI from Dr Casas and 3m f/u Protector Plate Attacher Required: No Gasoline Tractor Operator: Present Accompanied by: Spouse Allergies SHOAIB Inhibitors Allergy (Intermediate, Verified 12/18/24 09:06) swelling of tongue Medication List - Last Reconciled 12/18/24 by Cheryl Leslie PA-C amlodipine 10 mg PO DAILY aspirin 81 mg PO DAILY atorvastatin 20 mg PO DAILY blood sugar diagnostic (FreeStyle Lite Strips) 1 strip miscellaneous BID-TID cholecalciferol (vitamin D3) 50 mcg PO DAILY finasteride 5 mg PO DAILY 90 days folic acid 0.4 mg PO DAILY glyburide 2.5 mg PO DAILY lancets (FreeStyle Lancets) three times a day losartan 50 mg PO DAILY metformin ER 1,000 mg (2 x 500 mg) PO BID omeprazole 20 mg PO DAILY repaglinide 1-2 tab before lunch, 1-3 tabs before dinner PO once; as directed 90 days tadalafil 5 mg PO DAILY 90 days tamsulosin 0.4 mg PO BEDTIME 90 days Tobacco use date assessed: 12/18/24 Fall risk assessment: No Falls in past year Last assessed Fall Risk: 12/18/24 Dental Screening Dental Screen Date: 09/14/24 HPI eli from [facility]/3 mo follow up HPI Details 74-year-old male with past medical history of diabetes mellitus, hyperlipidemia, hypertension, hepatic steatosis and cholelithiasis last seen 09/[address] Casas coming in for transfer of care. In review of the notes, patient was seen by Urology 10/2024 4 lower urinary tract symptoms patient has a known bladder diverticulum advised to remain on finasteride and tadalafil and follow up in 6 months with PVR. He has also been following with General surgery for cholelithiasis he has been asymptomatic and he will follow up on as-needed basis. Patient's A1c today has been improving from 8.8% to 7%. He is currently on metformin and repaglinide as prescribed by his water resources engineer. He is no longer seeing endocrinology was discharged to the care of his PCP. He does check his blood sugars twice daily has not had any symptomatic lows below 90. He follows with podiatry through [facility] in his seen every 3 months and sees an eye doctor yearly. He checks his blood pressures at home typically before the administration of his blood pressure medication in the has been elevated. Blood pressures after administration of medication have been within normal range. Eye exam: Yearly - will be due in January Colonoscopy: Up-to-date 2020 [facility] Medical History COVID-19 vaccine series completed HTN (hypertension) Thalassemia trait Hiatal hernia GERD (gastroesophageal reflux disease) Type 2 diabetes with nephropathy Diabetes type 2, uncontrolled Gallstones BPH (benign prostatic hyperplasia) Hyperlipidemia LDL goal <100 Hypovitaminosis D Diabetes mellitus Erectile dysfunction Essential hypertension Surgical History H/O colonoscopy Family History Father No problems noted. Mother No problems noted. Sister Diabetes Brother Diabetes Social History Household Members: Spouse Housing: House Alcohol intake: current Alcohol intake frequency: holidays/special occasions only Patient Tobacco Use Status: Never used Tobacco Tobacco use type: Cigarette e-Cigarette/Vaping Use: Never Used Second Hand Smoke Exposure: No Advance Directives Date on File: 10/04/04 service: Yes Current occupational status: retired Cognitive needs: No Hearing needs: No Vision needs: Yes (glasses) Questionnaire PHQ-9 Over the last 2 weeks, how often have you been bothered by any of the following problems? 1. Little interest or pleasure in doing things: not at all 2. Feeling down, depressed, or hopeless: not at all 3. Trouble falling or staying asleep, or sleeping too much: not at all 4. Feeling tired or having little energy: not at all 5. Poor appetite or overeating: not at all 6. Feeling bad about yourself - or that you are a failure or have let yourself or your family down: not at all 7. Trouble concentrating on things, such as reading the newspaper or watching television: not at all 8. Moving or speaking so slowly that other people could have noticed. Or the opposite - being so fidgety or restless that you have been moving around a lot more than usual: not at all 9. Thoughts that you would be better off or of hurting yourself in some way: not at all Total score: 0 Depression Screening Interpretation: Negative Depression Screening Done: Yes Source: Developed by Drs. Blake Thomas, Audelia Caal, Alexei Johnson and colleagues, with an educational alex from [employer]. Thrive Questionnaire Date Thrive assessed: 09/14/24 I am a: Patient What is your living situation today?: I have a steady place to live Within the past 12 months, did the food you bought not last and you didn't have the money to get more?: I choose not to answer this question Within the past 12 months, did you worry whether your food would run out before you got money to buy more?: Never true Do you have trouble paying for medicines?: No Do you have trouble getting transportation to medical appointments?: No Do you have trouble paying your heating and electricity bill?: No Do you have trouble taking care of your child, family member or friend?: No Do you have trouble with day-to-day activities such as bathing, preparing meals, shopping, managing finances, etc.?: No Are you currently unemployed and looking for a job?: No Are you interested in more education?: No Please select the resources that you would like help with: None Currently or been in a relationship where the following occur: I choose not to answer THRIVE Score: 0 AUDIT C Alcohol Use Questionnaire (AUDIT-C) 1. How often do you have a drink containing alcohol?: Monthly or less Total Score: 1 DREW-7 AMB Questionnaire DREW-7 Date DREW - 7 assessed: 09/14/24 Feeling nervous, anxious, or on edge: 0 = Not at all Not being able to stop or control worryin = Not at all Worrying too much about different things: 0 = Not at all Trouble relaxin = Not at all Being so restless that it is hard to sit still: 0 = Not at all Becoming easily annoyed or irritable: 0 = Not at all Feeling afraid as if something awful might happen: 0 = Not at all Total DREW-7 score (0-4 normal; 5-9 mild; 10-14 moderate; 15-21 severe): 0 Source: Developed by Drs. Blake Thomas, Audelia Caal, Alexei Johnson and colleagues, with an educational alex from [employer]. DREW-7 Assessment Billing DREW-7 Assessment Tool: DREW-7 Assessment 82743 Review of Systems Const Denies body aches, Denies chills, Denies fever(s), Denies headache(s) and Denies poor appetite Eyes Reports no additional complaints ENT Denies dysphagia, Denies dizziness, Denies headache(s) and Denies odynophagia Card Denies chest pain, Denies syncope, Denies edema, Denies irregular heart rhythm, Denies lightheadedness and Denies dyspnea Resp Denies cough and Denies dyspnea GI Denies abdominal pain, Denies dysphagia, Denies nausea, Denies odynophagia and Denies vomiting Reports no additional complaints Musc Reports no additional complaints and Denies abnormal gait Skin/Breast Reports system reviewed and no additional complaints, except as documented Neuro Denies abnormal gait, Denies dizziness, Denies syncope and Denies headache(s) Psych Reports no additional complaints Physical exam (Primary Care) Vital Signs: Last Vital Signs Temp 97.1 F 12/18/24 08:50 Pulse 70 12/18/24 08:50 BP 130/68 12/18/24 08:50 Pulse Ox 97 12/18/24 08:50 Oxygen Delivery Method Room Air 12/18/24 08:50 BMI result Body Mass Index 28.9 Tobacco/Smoking Status: Tobacco use Status Tobacco use date assessed 12/18/24 12/18/24 08:53 Patient Tobacco Use Status Never used Tobacco 12/18/24 08:53 Tobacco use type Cigarette 12/18/24 08:53 e-Cigarette/Vaping Use Never Used 12/18/24 08:53 PHQ-9: PHQ-9 Score PHQ-9: Total score 0 12/18/24 08:53 Depression Screening Interpretation: Negative Thrive Assessment: Date of Thrive Assessment Date Thrive assessed 09/14/24 12/18/24 08:53 Currently or been in a relationship where the following occur: I choose not to answer Const General: cooperative, healthy appearing, comfortable and no acute distress Orientation/consciousness: patient oriented x3 HENMT Head: Yes normocephalic Ears: hearing grossly normal bilaterally General nose exam: Normal external nose present Eyes General: appearance normal, both eyes and all related structures Conjunctivae: conjunctivae normal Neck Neck: Yes full ROM and Yes no lymphadenopathy Resp Effort & Inspection: normal respiratory effort Auscultation: clear to auscultation bilaterally, no crackles, no rales, no rhonchi and no wheezes Cardio Rate: regular rate Rhythm: regular rhythm Skin General skin exam: no rashes or lesions noted Neuro General: patient oriented x3 Gait exam (Neuro): Normal gait present Extrem General: Yes normal to inspection, Yes full ROM and No edema Psych Affect: normal affect Attitude: cooperative Insight: Good insight present (Psych) Judgement: Good judgement present (Psych) Results AMB Hemoglobin A1c AMB Hemoglobin A1c 7.0 % Last Edit by CANDACE Hidalgo on 12/18/24 09:02 Results Reviewed Results Reviewed: Laboratory Last Values Hgb A1c (Clinic) 7.0 % (4.0-6.0) H 12/18/24 08:48 Coding Level of Care Code Est Pt Level 4 (66823) Diagnoses Hepatic steatosis K76.0 Cholelithiasis K80.20 Bladder diverticulum N32.3 Diabetes type 2, uncontrolled E11.65 Essential hypertension I10 Hyperlipidemia LDL goal <100 E78.5 Diabetic polyneuropathy associated with diabetes mellitus due to underlying condition E08.42 Additional Codes DREW-7 Assessment Billing - DREW-7 Assessment Tool: DREW-7 Assessment 64552 ([id number]) Assessment & Plan Assessment & Plan (1) Hepatic steatosis: Comment: May 2024 Cholelithiasis, biliary sludge and gallbladder wall thickening tip 8 mm. Correlate clinically for cholecystitis. 2. Hepatic steatosis. 3. 2.1 cm septated left upper pole renal cyst. 4.Nonvisualization of the pancreas and proximal aorta. Code(s): K76.0 - Fatty (change of) liver, not elsewhere classified Category: Medical Plan: Healthy diet and regular exercise is encouraged. (2) Cholelithiasis: Code(s): K80.20 - Calculus of gallbladder without cholecystitis without obstruction Category: Medical Plan: Was previously following with General surgery but was discharged as patient has been asymptomatic. Denies any right upper quadrant pain today. (3) Bladder diverticulum: Code(s): N32.3 - Diverticulum of bladder Category: Medical Plan: Currently following with Urology for lower urinary tract symptoms. Known bladder diverticulum. Continue on tamsulosin, finasteride and tadalafil per urology (4) Diabetes type 2, uncontrolled: Code(s): E11.65 - Type 2 diabetes mellitus with hyperglycemia Category: Medical Plan: Decrease the amount of carbohydrates such as pasta, bread, rice, and potatoes and limit the amount of sweets. Although fruits are generally healthy they should be eaten in moderation as they are still high in sugar. Hemoglobin A1c goal of less than 7%. A1c has been improving and is 7.0% today he is currently on repaglinide and metformin. At this time plan to work on dietary and lifestyle modification and can consider adding 3rd medication to regimen if A1c increases. (5) Essential hypertension: Code(s): I10 - Essential (primary) hypertension Category: Medical Plan: Continue on current blood pressure medication. Avoid salt intake and encourage healthy diet and regular exercise. (6) Hyperlipidemia LDL goal <100: Code(s): E78.5 - Hyperlipidemia, unspecified Category: Medical Plan: Avoid foods that are high in cholesterol such as red meat, fried foods, eggs and baked goods. Triglyceride goal of less than 150 and LDL goal of less than 100. Continue on atorvastatin 20. Cholesterol at goal on last labs (7) Diabetic polyneuropathy associated with diabetes mellitus due to underlying condition: Code(s): E08.42 - Diabetes mellitus due to underlying condition with diabetic polyneuropathy Category: Medical Plan: Symptoms well managed at this time continue to manage blood sugars. Continue to follow with Podiatry as well. Plan Plan to follow up in 3 months for repeat A1c and blood work at that time. This note was constructed using voice recognition software. While every effort has been made to ensure accuracy and transcription specialist, still areas may have been included sometimes these areas may affect the content or meeting of the given symptoms. Total time spent caring for the patient today was 30 minutes. This includes time spent before the visit reviewing the chart, time spent during the visit, and time spent after the visit and documentation. Orders: Orders AMB Hemoglobin A1c Today E11.9 - Type 2 diabetes mellitus without complications, I10 - Essential (primary) hypertension Complete Blood Count Auto Diff Today E11.65 - Type 2 diabetes mellitus with hyperglycemia, Z00.00 - Encounter for general adult medical examination without abnormal findings Comprehensive Met. Panel Today E11.65 - Type 2 diabetes mellitus with hyperglycemia, Z00.00 - Encounter for general adult medical examination without abnormal findings Hemoglobin A1c Today E11.65 - Type 2 diabetes mellitus with hyperglycemia TSH reflex Free T4 Today Z00.00 - Encounter for general adult medical examination without abnormal findings Vitamin B12 and Folate Today Z00.00 - Encounter for general adult medical examination without abnormal findings Free T4 (Free Thyroxine) Today Z00.00 - Encounter for general adult medical examination without abnormal findings Lipid Panel Today E11.65 - Type 2 diabetes mellitus with hyperglycemia, E78.00 - Pure hypercholesterolemia, unspecified Vitamin D 25-OH Total Today Z00.00 - Encounter for general adult medical examination without abnormal findings Medications: Discontinued glyburide Discontinued Reason: Patient no longer taking 2.5 mg PO DAILY 90 tabs 0RF
[2024-12-18 08:50] VITALS: BP 130/68; PULSE 70; TEMP 36.2; O2SAT 97; BMI 28.9
== END 2024-12-18 09:38 | disposition home or self-care (01) ==
DX: E11.65 Type 2 diabetes mellitus with hyperglycemia (principal); E11.69 Type 2 diabetes mellitus with other specified complication; K76.0 Fatty (change of) liver, not elsewhere classified; K80.20 Calculus of gallbladder without cholecystitis without obstruction; N32.3 Diverticulum of bladder; I10 Essential (primary) hypertension; E78.5 Hyperlipidemia, unspecified

== ENCOUNTER → 2024-12-18 08:45 | Outpatient (BNVA) | payer MEDICARE, SELFPAY | PROVIDERS: PCP Internal Medicine | DX: Z76.89 Persons encountering health services in other specified circumstances (principal); K76.0 Fatty (change of) liver, not elsewhere classified; K80.20 Calculus of gallbladder without cholecystitis without obstruction; N32.3 Diverticulum of bladder; E11.65 Type 2 diabetes mellitus with hyperglycemia; I10 Essential (primary) hypertension; E78.5 Hyperlipidemia, unspecified; E11.42 Type 2 diabetes mellitus with diabetic polyneuropathy | CPT/HCPCS: 83036; 96127; 99212 ==

== ENCOUNTER 2025-03-12 09:06 | Outpatient (REF) | payer MEDICARE, SELFPAY ==
[2025-03-12 09:18] LABS: MANUAL DIFF FLAG NO
--- OUTSIDE RECORDS SUMMARY | 2025-03-12 09:26 | XMS_ITS | Patient Health Record ---
[facility] Address [address] [place] [address] Care Team Providers Care Manager Statistics Name Role Phone Polo Casas MD Primary Care Provider Osvaldo Cheung Unavailable [phone] Allergies Allergen (clinical drug ingredient) Drug/Non Drug Allergy documented on EMR Reaction Allergy Type Onset Date Status hydrochlorothiazide Hydrochlorothiazide raises b lood pressure Drug Allergy Active lisinopril Lisinopril tongue swelling Drug Allergy Active Results Component Value Reference Range Notes HEMOGLOBIN A1C (GLYCOHEMOGLO BIN) Reviewed date:04/26/2024 10:35:49 AM Interpretation: Performing Lab: Notes/Report: TOTAL HEMOGLOBIN (HGBA1C) 7.8 HEMOGLOBIN A1C (GLYCOHEMOGLO BIN) Reviewed date:08/13/2024 03:09:16 PM Interpretation: Performing Lab: Notes/Report: HEMOGLOBIN A1C % (HH) 7.8 HEMOGLOBIN A1C (GLYCOHEMOGLO BIN) Reviewed date:11/12/2024 03:46:37 PM Interpretation: Performing Lab: Notes/Report: HEMOGLOBIN A1C % (HH) 8.8 HEMOGLOBIN A1C (GLYCOHEMOGLO BIN) Reviewed date:02/14/2025 10:43:46 AM Interpretation: Performing Lab: Notes/Report: HEMOGLOBIN A1C % (HH) 7 Reason For Referral No Information Medications Medication SIG (Take, Route, Frequency, Duration) Notes Start Date End Date Status amLODIPine Besylate 5 MG Orally Active Tadalafil Active Repaglinide 0.5 MG Orally A ctive Vitamin D3 Active Tamsulosin HCl Activ e Finasteride Active Atorvastatin Calcium 20 MG Orally Active Aspirin 325 MG Orally Activ e Extra Depth Orthopedic Shoes (1 Pair) with Customized Heat Molded Multidensity Innersoles (3 Pair) as directed Dx: NIDDM (E11.9), Hammertoe Foot Deformity (M20.41,M20.42), Preulcerative Skin Lesion(s) (L85.1) 01/26/2024 Active Omeprazole 20 MG Orally Act anthony metFORMIN HCl 500 MG Orally twice a day Active Ketoconazole 2 % 1 application Apply a thin layer to externally to feet, even between toes Twice a day; Duration: 30 days Active Losartan Potassium 50mg once daily Active Folic Acid 400 MCG 1 tablet Orally Once a day Active Immunizations Vaccine Route Administration Date Status Comme nts Influenza Unknown 08/07/2019 Administered Influenza Unknown 03/08/2020 Administered Influenza Unknown 06/02/2024 Administered COVID-19 Pfizer BioNTech Vaccine Unknown 10/09/2020 Adm inistered COVID-19 Pfizer BioNTech Vaccine Unknown 10/30/2020 Adm inistered COVID-19 Pfizer BioNTech Vaccine Unknown 06/02/2024 Adm inistered Social History Tobacco Use: Social History Observation Description Date Details (start date - stop date) Never Smoker NA - NA Tobacco use other than smoking: Question Answer Notes Are you an other tobacco user? No Tobacco Control (Standard) Question Answer Notes Tobacco use: Nonsmoker Additional Findings: Tobacco non-user Current no nsmoker AUDIT-C (Standard) Question Answer Notes Did you have a [...] (0 point) How often did you have six o r more drinks on one occasion in the past year? Less than monthly (1 point) Points 2 Interpretation Negative Problems Problem Type SNOMED Code ICD Code Onset Dates Problem Status W/U Status Risk Notes Problem Acquired hammer toe of right foot (90849020639 ) Other hammer toe(s) (acquired), right foot (M20.41) Active confirmed Response to treatment,I mprovement Problem Acquired hammer toe of left foot (95976552249 ) Other hammer toe(s) (acquired), left foot (M20.42) Active confirmed Response to treatment,I mprovement Problem Type 2 diabetes mellitus without complication (E11.9) Active confirmed Vital Signs Heart Rate 65 /min 02/14/2025 Blood pressure diastolic 80 mm Hg 02/14/2025 Height 5ft 11in in 02/14/2025 Blood pressure systolic 159 mm Hg 02/14/2025 Weight 204 lbs 02/14/2025 BMI 28.45 kg/m2 02/14/2025 Procedures Procedure Date Ordered Date Performed Result Body Sit e 54950-OWIQWXS NAIL, 6 OR MORE 04/26/2024 N/A 66218-[id number] NAIL, 6 OR MORE 08/13/2024 N/A 36477-GPJQUJP NAIL, OR MORE 11/12/2024 N/A 96689-YDWUTXJ NAIL, OR MORE 02/14/2025 N/A Encounters Encounter Location Date Provider Diagnosis [address] [address] 04/26/2024 Osvaldo Lorena Tinea unguium B35.1 ; Pain in right toe(s) M79.674 ; Pain in left toe(s) M79.675 and Type 2 diabetes mellitus without complication E11.[address] [address] 08/13/2024 Osvaldo Lorena Tinea unguium B35.1 ; Pain in right toe(s) M79.674 ; Pain in left toe(s) M79.675 ; Type 2 diabetes mellitus without complication E11.9 ; Other hammer toe(s) (acquired), right foot M20.41 and Other hammer toe(s) (acquired), left foot M20.[address] [address] 11/12/2024 Osvaldo Lorena Tinea unguium B35.1 ; Pain in right toe(s) M79.674 ; Pain in left toe(s) M79.675 and Type 2 diabetes mellitus without complication E11.[address] [address] 02/14/2025 Osvaldo Lorena Tinea unguium B35.1 ; Pain in right toe(s) M79.674 ; Pain in left toe(s) M79.675 ; Type 2 diabetes mellitus without complication E11.9 and Tinea pedis of both feet B35.3 Assessments Encounter Date Diagnosis (ICD Code) Assessment Notes Treatment Notes Treatment Clinical Notes Section Notes 04/26/2024 Pain in right toe(s) (ICD-10 - M79.674) 04/26/2024 Tinea unguium (ICD-10 - B35.1) 08/13/2024 Tinea unguium (ICD-10 - B35.1) 08/13/2024 Pain in right toe(s) (ICD-10 - M79.674) 11/12/2024 Tinea unguium (ICD-10 - B35.1) 11/12/2024 Pain in right toe(s) (ICD-10 - M79.674) 02/14/2025 Tinea unguium (ICD-10 - B35.1) 02/14/2025 Pain in right toe(s) (ICD-10 - M79.674) 02/14/2025 Pain in left toe(s) (ICD-10 - M79.675) 11/12/2024 Pain in left toe(s) (ICD-10 - M79.675) 08/13/2024 Pain in left toe(s) (ICD-10 - M79.675) 04/26/2024 Pain in left toe(s) (ICD-10 - M79.675) 04/26/2024 Type 2 diabetes mellitus without complication (ICD-10 - E11.9) 08/13/2024 Type 2 diabetes mellitus without complication (ICD-10 - E11.9) 11/12/2024 Type 2 diabetes mellitus without complication (ICD-10 - E11.9) 02/14/2025 Type 2 diabetes mellitus without complication (ICD-10 - E11.9) 08/13/2024 Other hammer toe(s) (acquired), right foot (ICD-10 - M20.41) Response to treatment,Impro vement 08/13/2024 Other hammer toe(s) (acquired), left foot (ICD-10 - M20.42) Response to treatment,Impro vement 02/14/2025 Tinea pedis of both feet (ICD-10 - B35.3) Patient Educated with: ATHELETE .pdf (ATHELETE .pdf) Plan Of Treatment Pending Test Test Name Order Date [id number] NAIL, 6 OR MORE 06/27/2019 53015-[id number] NAIL, 6 OR MORE 09/27/2019 92585-CFPBVMY NAIL, 6 OR MORE 12/27/2019 82606-JFVVHLC NAIL, 6 OR MORE 03/27/2020 22806-EDEGQNR NAIL, 6 OR MORE 06/25/2020 06071-ZLASCHX NAIL, 6 OR MORE 09/25/2020 76098-RLDNTGO NAIL, 6 OR MORE 12/25/2020 57850-[id number] NAIL, 6 OR MORE 03/26/2021 35659-JYCTGZK NAIL, 6 OR MORE 06/25/2021 41698-[id number] NAIL, 6 OR MORE 10/01/2021 04211-WQLVEHJ NAIL, 6 OR MORE 12/23/2021 14427-BMLZKOX NAIL, 6 OR MORE 04/05/2022 52190-OWENVQA NAIL, 6 OR MORE 07/07/2022 13218-ZJZUUPC NAIL, 6 OR MORE 10/06/2022 71361-[id number] NAIL, 6 OR MORE 01/06/2023 96494-VDHXPTM NAIL, 6 OR MORE 04/14/2023 76542-EHFBYXS NAIL, 6 OR MORE 07/21/2023 98679-SMDBPAO NAIL, 6 OR MORE 10/27/2023 32151-WJUKFXL NAIL, 6 OR MORE 01/26/2024 05062-GGEJERS NAIL, 6 OR MORE 04/26/2024 91471-GEIVYPP NAIL, 6 OR MORE 08/13/2024 04026-VSQLZKZ NAIL, 6 OR MORE 11/12/2024 78444-LZWDXOY NAIL, 6 OR MORE 02/14/2025 Next Appt Details Provider Name:Osvaldo Carrillo , 05/13/2025 09:45:00 AM, [address] [facility] [address], [place], [address], Insurance Providers Payer Name Payer Address Payer Phone Subscriber Number Group Number Insured Name Patient Relationship to Insured Coverage Start Date Coverage End Date [employer] [address] [place] [address] [phone] [id number] Ramin Canales Self - patient is the insured 4 Medical (General) History Medical History History ICD Code Diabetic Hiatal hernia High blood pressure Reflux ( GERD) Measles Mumps Chicken pox Gallstones Surgical History Surgery Date(Month/Year) colonoscopy 07/2021 Hospitalization History Reason Date(Month/Year) Urology testing 09/25/19 CT Scan 09/18/19
--- OUTSIDE RECORDS SUMMARY | 2025-03-12 09:26 | XMS_ITS | Patient Health Record ---
Author Organization [facility] Address [address] [place] [address] Care Team Providers Care Sulfur Burner Name Role Phone Yessenia SPAIN, Polo Primary Care Provider Cornelio Serna Jr [phone] Allergies Allergen (clinical drug ingredient) Drug/Non Drug Allergy documented on EMR Reaction Allergy Type Onset Date Status angiotensin-converting enzyme inhibitor (FN) SHOAIB Inhibitors Unknown Drug Allergy Acti ve Reason For Referral No Information Medications Medication [...] Orally Active Aspirin Adult Low Dose Active Immunizations Vaccine Route Administration Date Status Comme nts Influenza Unknown 05/04/2021 Administered Problems Problem Type SNOMED Code ICD Code Onset Dates Problem Status W/U Status Risk Notes Problem 531959703 Colon cancer screening (Z12.11) Active confirmed 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 [address] [place] [phone] [id number] ERNESTINE PEREIRA Self - patient is the insured Medical (General) History Medical History History ICD Code Colonoscopy 01/21, limited pr ep, no polyps, five-year followup, and previous history of tubular adenomas gerd hiatal hernia Thalassemia trait type II diabetes Hypertension Elevated cholesterol BPH Surgical History Surgery Date(Month/Year)
[2025-03-12 09:37] LABS: Hematocrit 37.9 % (42.0-52.0); Hemoglobin 11.7 g/dl (14.0-18.0); Imm Gran Abs Auto 0.02 X10*3/uL (0.00-0.03); Imm Gran Pct Auto 0.3 % (0.0-0.4); Lymphocytes Absolute Auto 1.8 X10*3/uL (1.2-4.9); Mean Corpuscular HGB Conc 30.9 g/dl (31.0-36.0); Mean Corpuscular Hemoglobin 22.8 pg (27.0-33.0); Mean Corpuscular Volume 73.9 fL (80.0-98.0); NRBC Abs Auto 0.000 X10*3/uL (0.0-0.012); NRBC Pct Auto 0.0 /100WBC (0.0-0.2); Platelet Count 310 X10*3/uL (160-400); Red Blood Count 5.13 X10*6/uL (4.60-5.80); White Blood Count 7.4 X10*3/uL (4.8-10.8)
[2025-03-12 10:20] LABS: Alanine Aminotransferase 35 U/L (0-40); Albumin Level 4.1 g/dL (3.5-5.0); Alkaline Phosphatase 95 U/L (39-117); Anion Gap 13 (12-20); Aspartate Amino Transferase 29 U/L (5-37); Blood Urea Nitrogen 25 mg/dL (9-16); Calcium 9.5 mg/dL (8.4-10.2); Carbon Dioxide 22 mmol/L (22-29); Chloride 109 mmol/L (96-108); Cholesterol 130 mg/dL (<200); Estimated Glomerular Filt Rate 54; HDL Cholesterol 40 mg/dL (>40); Potassium 4.4 mmol/L (3.3-5.1); Sodium 140 mmol/L (135-145); Total Protein 7.4 g/dL (6.5-8.0); Triglycerides 98 mg/dL (<150)
[2025-03-12 10:38] LABS: Free T4 (Free Thyroxine) 0.98 ng/dL (0.71-1.85)
[2025-03-12 10:42] LABS: Folate 14.3 ng/mL (> or = 4.0); Vitamin B12 410 pg/mL (200-900)
[2025-03-12 10:51] LABS: Hemoglobin A1C 224.3278 umol/L; Total Hemoglobin (HGBA1C) 3116.1280 umol/L
== END 2025-03-12 09:07 | disposition home or self-care (01) ==
LOC: HO.LAB 09:06
DX: Z00.00 Encounter for general adult medical examination without abnormal findings (principal); E11.65 Type 2 diabetes mellitus with hyperglycemia; E78.00 Pure hypercholesterolemia, unspecified
CPT/HCPCS: 36415; 80053; 80061; 82306; 82607; 82746; 83036; 84439; 84443; 85025

== ENCOUNTER 2025-03-19 09:15 | Outpatient (AMB) | payer MEDICARE, SELFPAY ==
--- NOTE | 2025-03-19 09:18 | MHC.PC.OV ---
Vital Signs 03/19/25 09:20 03/19/25 09:51 Height 5 ft 11 in Weight 211 lb 8 oz BMI 29.5 BP 142/78 H 142/62 H Blood Pressure Location Lt brachial Lt brachial Position Sitting Sitting Pulse 86 Pulse Source Pulse Oximeter Temp 97.6 F Temp Source Temporal Artery Scan Pulse Oximetry (%) 97 Oxygen Delivery Method Room Air Intake Visit Reasons: PE- HTN- see comments Biofuels Product Manager Required: No Accompanied by: Self / Same As Patient Allergies SHOAIB Inhibitors Allergy (Intermediate, Verified 03/19/25 09:20) swelling of tongue Medication List - Last Reconciled 03/19/25 by Cheryl Leslie PA-C amlodipine 10 mg PO DAILY aspirin 81 mg PO DAILY atorvastatin 20 mg PO DAILY blood sugar diagnostic (FreeStyle Lite Strips) 1 strip miscellaneous BID-TID cholecalciferol (vitamin D3) 50 mcg PO DAILY finasteride 5 mg PO DAILY 90 days folic acid 0.4 mg PO DAILY lancets (FreeStyle Lancets) three times a day losartan 50 mg PO DAILY metformin ER 1,000 mg (2 x 500 mg) PO BID omeprazole 20 mg PO DAILY repaglinide 1-2 tab before lunch, 1-3 tabs before dinner PO once; as directed 90 days tadalafil 5 mg PO DAILY 90 days tamsulosin 0.4 mg PO BEDTIME 90 days Tobacco use date assessed: 03/19/25 Fall risk assessment: No Falls in past year Last assessed Fall Risk: 03/19/25 Dental Screening Dental Screen Date: 03/19/25 Did you have a dental visit in the last 12 months?: No Did you have a dental problem in the last 6 months where you did not have access to dental care?: No Was dental information given to patient?: No HPI PE- HTN- see comments HPI Details 74-year-old male with past medical history of diabetes mellitus, hyperlipidemia, hypertension, hepatic steatosis and cholelithiasis last seen 12/2024 coming in for annual exam. Presenting for a routine physical examination. The patient's HbA1c has increased from 7% in December to 8.7%, despite no significant changes in diet or lifestyle reported. The patient's blood pressure was slightly elevated at 142/60 mmHg during the visit, but no changes in medication were made. The patient is under the care of a urologist and reports improvement in urinary symptoms with current medications. He has no acute concerns today Eye exam: Yearly completed in January Colonoscopy: Up-to-date 2020 PSA: Vaccines: RSV, Covid, Flu UTD - PCV and Td updated today [facility] Medical History COVID-19 vaccine series completed HTN (hypertension) Thalassemia trait Hiatal hernia GERD (gastroesophageal reflux disease) Type 2 diabetes with nephropathy Diabetes type 2, uncontrolled Gallstones BPH (benign prostatic hyperplasia) Hyperlipidemia LDL goal <100 Hypovitaminosis D Diabetes mellitus Erectile dysfunction Essential hypertension Surgical History H/O colonoscopy Family History Father No problems noted. Mother No problems noted. Sister Diabetes Brother Diabetes Social History Household Members: Spouse Housing: House Alcohol intake: current Alcohol intake frequency: holidays/special occasions only Patient Tobacco Use Status: Never used Tobacco Tobacco use type: Cigarette e-Cigarette/Vaping Use: Never Used Second Hand Smoke Exposure: No Advance Directives Date on File: 10/04/04 service: Yes Current occupational status: retired Cognitive needs: No Hearing needs: No Vision needs: Yes (glasses) Questionnaire Thrive Questionnaire Date Thrive assessed: 03/19/25 I am a: Patient What is your living situation today?: I have a steady place to live Within the past 12 months, did the food you bought not last and you didn't have the money to get more?: I choose not to answer this question Within the past 12 months, did you worry whether your food would run out before you got money to buy more?: Never true Do you have trouble paying for medicines?: No Do you have trouble getting transportation to medical appointments?: No Do you have trouble paying your heating and electricity bill?: No Do you have trouble taking care of your child, family member or friend?: No Do you have trouble with day-to-day activities such as bathing, preparing meals, shopping, managing finances, etc.?: No Are you currently unemployed and looking for a job?: No Are you interested in more education?: No Please select the resources that you would like help with: None Currently or been in a relationship where the following occur: I choose not to answer THRIVE Score: 0 DREW-7 AMB Questionnaire DREW-7 Date DREW - 7 assessed: 03/19/25 Source: Developed by Drs. Blake Thomas, Audelia Caal, Alexei Johnson and colleagues, with an educational alex from [employer] Review of Systems Const Denies body aches, Denies fatigue, Denies fever(s), Denies frequent falls, Denies headache(s) and Denies weakness Eyes Reports no additional complaints and Denies change in vision ENT Denies dysphagia, Denies dizziness, Denies facial pain, Denies headache(s), Denies nasal congestion and Denies odynophagia Card Denies chest pain, Denies syncope, Denies irregular heart rhythm, Denies leg edema, Denies lightheadedness and Denies dyspnea Resp Denies cough and Denies dyspnea GI Denies constipation, Denies dysphagia, Denies dyspepsia, Denies diarrhea, Denies nausea, Denies odynophagia and Denies vomiting Denies dysuria, Denies urinary frequency, Denies urinary hesitancy and Denies urinary urgency Musc Denies back pain and Denies myalgias Skin/Breast Reports system reviewed and no additional complaints, except as documented Neuro Denies dizziness, Denies syncope, Denies frequent falls, Denies headache(s) and Denies weakness Psych Reports no additional complaints Endo Denies fatigue Physical exam (Primary Care) Vital Signs: Last Vital Signs Temp 97.6 F 03/19/25 09:20 Pulse 86 03/19/25 09:20 BP 142/62 H 03/19/25 09:51 Pulse Ox 97 03/19/25 09:20 Oxygen Delivery Method Room Air 03/19/25 09:20 BMI result Body Mass Index 29.5 BMI Assessment/Plan discussion: High BMI High, discussed plan: lifestyle, dietary and physical activity Tobacco/Smoking Status: Tobacco use Status Tobacco use date assessed 03/19/25 03/19/25 09:20 Patient Tobacco Use Status Never used Tobacco 03/19/25 09:20 Tobacco use type Cigarette 03/19/25 09:20 e-Cigarette/Vaping Use Never Used 03/19/25 09:20 Thrive Assessment: Date of Thrive Assessment Date Thrive assessed 03/19/25 03/19/25 09:20 Currently or been in a relationship where the following occur: I choose not to answer Const General: cooperative, healthy appearing, comfortable and no acute distress Orientation/consciousness: patient oriented x3 [facility] Head: Yes normocephalic Ears: hearing grossly normal bilaterally, external ears normal, TM's normal bilaterally and EAC's normal General nose exam: Normal external nose present Face and sinus: Yes normal facial exam and Yes sinuses nontender Mouth: Normal oral and palatal mucosa present and tongue normal Throat: Yes posterior oropharynx normal Eyes General: appearance normal, both eyes and all related structures Conjunctivae: conjunctivae normal Pupils: Equal, round and reactive pupils present EOM: EOMs intact bilaterally and No Nystagmus present Neck Neck: Yes normal visual inspection, Yes full ROM and Yes no lymphadenopathy Carotids: no bruits Chest Chest palpation & inspection: normal inspection of the chest Resp Effort & Inspection: normal respiratory effort Auscultation: clear to auscultation bilaterally, no crackles, no rales, no rhonchi, no wheezes and breath sounds present Cardio Rate: regular rate Rhythm: regular rhythm Peripheral pulses: radial pulses present and dorsalis pedis present GI Inspection: Yes normal to inspection and No Abdominal wall edema Palpation (GI): Soft to palpation, not firm and nontender Auscultation: normal bowel sounds Rectal Exam - Male: Yes deferred General: Yes no CVA tenderness Back/Spine/Pelvis Back: no CVA tenderness Skin General skin exam: no rashes or lesions noted Neuro General: patient oriented x3 Cranial nerves: Yes Equal, round and reactive pupils present, Yes Midline tongue present, Yes Ability to bilaterally elevate shoulders present and No Nystagmus present Gait exam (Neuro): Normal gait present Extrem General: Yes normal to inspection, Yes full ROM, No no pedal edema and No edema Psych Speech and movement: Normal speech and movement present Affect: normal affect Insight: Good insight present (Psych) Judgement: Good judgement present (Psych) Immunizations pneumoc 20-dorie conj-dip cr(PF) 0.5 mL IM syringe Performing Provider: Cheryl Leslie PA-C Performing Location: [facility] Administered by: Dori Blackman LPN on 03/19/25 10:14 Dose Route Admin Location Dispensed Lot Number Expiration Date ND Exchange Underwriting Consultant 0.5 mL IM Right Deltoid 0.5 mL [id number] 03/07/26 3722-3248-07 [employer] Ac[employer] Total Dispensed Waste 0.5 mL 0 % VIS Given Date VIS Provided VIS Publication Date 03/19/25 Single Vaccine 25 Eligibility Eligibility Date Funding Source Not VFC Eligible 03/19/25 Private Tenivac (PF) 5 Lf unit-2 Lf unit/0.5 mL intramuscular syringe Performing Provider: Cheryl Leslie PA-C Performing Location[facility] Administered by: Dori Blackman LPN on 03/19/25 10:14 Dose Route Admin Location Dispensed Lot Number Expiration Date ND Exchange Underwriting Consultant 0.5 mL IM Right Deltoid 0.5 mL [id number] 12/05/26 10848-872-26 [employer] Total Dispensed Waste 0.5 mL 0 % VIS Given Date VIS Provided VIS Publication Date 03/19/25 Single Vaccine 21 Eligibility Eligibility Date Funding Source Not VFC Eligible 03/19/25 Private Coding Level of Care Code Est Pt Prev Care >65y(99774) Diagnoses Physical exam Z00.00 Essential hypertension I10 Hyperlipidemia LDL goal <100 E78.5 Diabetes mellitus with coincident hypertension E11.9; I10 Hypovitaminosis D E55.9 Hepatic steatosis K76.0 Urinary retention with incomplete bladder emptying R33.9 Diabetic polyneuropathy associated with diabetes mellitus due to underlying condition E08.42 Erectile dysfunction associated with type 2 diabetes mellitus E11.69; N52.1 Assessment & Plan Assessment & Plan (1) Physical exam: Code(s): Z00.00 - Encounter for general adult medical examination without abnormal findings Category: Medical Plan: Patient is up-to-date on all recommended routine screenings and vaccinations for his age. Blood work is up-to-date and has been reviewed with the patient today. Healthy diet and regular exercise is encouraged. Plan to follow up in 3 months. He was given the pneumonia and tetanus vaccine. (2) Essential hypertension: Code(s): I10 - Essential (primary) hypertension Category: Medical Plan: Continue on current blood pressure medication. Avoid salt intake and encourage healthy diet and regular exercise. Blood pressure remains at goal continue on losartan 50 mg and amlodipine 10 mg. Blood pressure mildly elevated today 142/62 plan to take blood pressures at home and keep log if they exceed 140/90 reach out to the office and plan to increase losartan. (3) Hyperlipidemia LDL goal <100: Code(s): E78.5 - Hyperlipidemia, unspecified Category: Medical Plan: Avoid foods that are high in cholesterol such as red meat, fried foods, eggs and baked goods. Triglyceride goal of less than 150 and LDL goal of less than 100. Continue on atorvastatin 20 mg. LDL at goal on last labs (4) Diabetes mellitus with coincident hypertension: Code(s): E11.9 - Type 2 diabetes mellitus without complications; I10 - Essential (primary) hypertension Category: Medical Plan: Decrease the amount of carbohydrates such as pasta, bread, rice, and potatoes and limit the amount of sweets. Although fruits are generally healthy they should be eaten in moderation as they are still high in sugar. Hemoglobin A1c goal of less than 7%. Last A1c 8.7% patient is currently on metformin 1000 mg twice daily and repaglinide. Plan to add Januvia to the medication regimen for better glucose control (5) Hypovitaminosis D: Code(s): E55.9 - Vitamin D deficiency, unspecified Category: Medical Plan: Currently on oral supplementation continue to monitor blood work (6) Hepatic steatosis: Comment: May 2024 Cholelithiasis, biliary sludge and gallbladder wall thickening tip 8 mm. Correlate clinically for cholecystitis. 2. Hepatic steatosis. 3. 2.1 cm septated left upper pole renal cyst. 4.Nonvisualization of the pancreas and proximal aorta. Code(s): K76.0 - Fatty (change of) liver, not elsewhere classified Category: Medical Plan: Healthy diet and regular exercise is encouraged. (7) Urinary retention with incomplete bladder emptying: Code(s): R33.9 - Retention of urine, unspecified Category: Medical Plan: Patient is currently on finasteride 5 mg and tamsulosin. Continue to follow with Urology (8) Diabetic polyneuropathy associated with diabetes mellitus due to underlying condition: Code(s): E08.42 - Diabetes mellitus due to underlying condition with diabetic polyneuropathy Category: Medical Plan: Advised good control of the blood sugars. (9) Erectile dysfunction associated with type 2 diabetes mellitus: Code(s): E11.69 - Type 2 diabetes mellitus with other specified complication; N52.1 - Erectile dysfunction due to diseases classified elsewhere Category: Medical Plan: Continue on tadalafil daily. Continue to follow with Urology as well. Plan The patient will continue with current medications for diabetes management, including metformin and repaglinide, but Januvia will be added to help control blood sugar levels, given the recent increase in HbA1c to 8.7%. The patient is advised to monitor carbohydrate intake, particularly reducing bread, pasta, and rice, and to maintain hydration to address mild dehydration. For hypertension, the patient is instructed to monitor blood pressure at home and report if readings consistently exceed 140/90 mmHg, with a potential plan to adjust losartan if necessary. Preventative care measures include updating vaccinations, with tetanus and pneumonia vaccines administered today, and planning for flu and COVID vaccines in the fall. The patient will follow up in three months to recheck HbA1c levels and assess the effectiveness of the new medication regimen. This note was constructed using voice recognition software. While every effort has been made to ensure accuracy and court security officer, still areas may have been included sometimes these areas may affect the content or meeting of the given symptoms. Total time spent caring for the patient today was 30 minutes. This includes time spent before the visit reviewing the chart, time spent during the visit, and time spent after the visit and documentation. Patient was informed and verbally consented to the use of an ambient scribe for clinic note documentation during this visit. Orders: Orders Td Immunization Today Z23 - Encounter for immunization Pneumococcal 20 Immunization Today Z23 - Encounter for immunization Medications: New sitagliptin phosphate (Januvia) 25 mg PO DAILY 90 tabs 0RF
[2025-03-19 09:20] VITALS: BP 142/78; PULSE 86; TEMP 36.4; O2SAT 97; BMI 29.5
--- OUTSIDE RECORDS SUMMARY | 2025-03-19 09:50 | XMS_ITS | Patient Health Record ---
Author Organization [facility] Address [address] [place] [address] Care Team Providers Care Business Education Professor Name Role Phone Yessenia SPAIN, Pol[place] Primary Care Provider Cornelio Serna Jr [phone] Allergies Allergen (clinical drug ingredient) Drug/Non Drug [...] Problem Status W/U Status Risk Notes Problem [id number] Colon cancer screening (Z12.11) Active confirmed Problem 054738012 FPC current use of aspirin (Z79.82) Active confirmed Problem 505899527 Encounter for long-term (current) use of other high-risk medications (Z79.899) Active confirmed Problem 700599356 Personal history of colonic polyps (Z86.010) Active confirmed Problem 283897794 Long-term use of aspirin therapy (Z79.82) Active confirmed Plan Of Treatment Future Test Test Name Order Date COLONOSCOPY 10/09/2015 COLONOSCOPY 06/22/2021 Insurance Providers Payer Name Payer Address Payer Phone Subscriber Number Group Number Insured Name Patient Relationship to Insured Coverage Start Date Coverage End Date [facility] [address] [place] [phone] [id number] ERNESTINE PEREIRA Self - patient is the insured Medical (General) History Medical History History ICD Code Colonoscopy 01/21, limited pr ep, no polyps, five-year followup, and previous history of tubular adenomas gerd hiatal hernia Thalassemia trait type II diabetes Hypertension Elevated cholesterol BPH Surgical History Surgery Date(Month/Year)
--- OUTSIDE RECORDS SUMMARY | 2025-03-19 09:50 | XMS_ITS | Patient Health Record ---
[facility] Address [address] [place] [address] Care Team Providers Care Deployment Manager Name Role Phone Polo Casas MD Primary Care Provider Osvaldo Cheung Unavailable [phone] Allergies Allergen (clinical drug ingredient) Drug/Non Drug [...] Problem Acquired hammer toe of right foot (71877738060 ) Other hammer toe(s) (acquired), right foot (M20.41) Active confirmed Response to treatment,I mprovement Problem Acquired hammer toe of left foot (36069915085 ) Other hammer toe(s) (acquired), left foot [...] Ordered Date Performed Result Body Sit e 09809-QOTJRVZ NAIL, 6 OR MORE 04/26/2024 N/A [id number] NAIL, 6 OR MORE 08/13/2024 N/A [id number] NAIL, OR MORE 11/12/2024 N/A [id number] NAIL, OR MORE 02/14/2025 N/A Encounters Encounter Location Date Provider Diagnosis [address] [id number] 04/26/2024 Osvaldo Lorena Tinea unguium B35.1 ; Pain in right toe(s) M79.674 ; Pain in left toe(s) M79.675 and Type 2 diabetes mellitus without complication E11.[address] [address] 08/13/2024 Osvaldo Lorena Tinea unguium B35.1 ; Pain in right toe(s) M79.674 ; Pain in left toe(s) M79.675 ; Type 2 diabetes mellitus without complication E11.9 ; Other hammer toe(s) (acquired), right foot M20.41 and Other hammer toe(s) (acquired), left foot M20.[address] [address] 11/12/2024 Osvaldo Lorena Tinea unguium B35.1 ; Pain in right toe(s) M79.674 ; Pain in left toe(s) M79.675 and Type 2 diabetes mellitus without complication E11.[address] [address] 02/14/2025 Osvaldo Lorena Tinea unguium B35.1 ; [...] Treatment Pending Test Test Name Order Date [id number] NAIL, 6 OR MORE 06/27/2019 [id number] NAIL, 6 OR MORE 09/27/2019 [id number] NAIL, 6 OR MORE 12/27/2019 [id number] NAIL, 6 OR MORE 03/27/2020 [id number] NAIL, 6 OR MORE 06/25/2020 [id number] NAIL, 6 OR MORE 09/25/2020 [id number] NAIL, 6 OR MORE 12/25/2020 [id number] NAIL, 6 OR MORE 03/26/2021 [id number] NAIL, 6 OR MORE 06/25/2021 [id number] NAIL, 6 OR MORE 10/01/2021 [id number] NAIL, 6 OR MORE 12/23/2021 [id number] NAIL, 6 OR MORE 04/05/2022 [id number] NAIL, 6 OR MORE 07/07/2022 [id number] NAIL, 6 OR MORE 10/06/2022 [id number] NAIL, 6 OR MORE 01/06/2023 [id number] NAIL, 6 OR MORE 04/14/2023 [id number] NAIL, 6 OR MORE 07/21/2023 [id number] NAIL, 6 OR MORE 10/27/2023 [id number] NAIL, 6 OR MORE 01/26/2024 [id number] NAIL, 6 OR MORE 04/26/2024 [id number] NAIL, 6 OR MORE 08/13/2024 [id number] NAIL, 6 OR MORE 11/12/2024 [id number] NAIL, 6 OR MORE 02/14/2025 Next Appt Details Provider Name:Osvaldo Carrillo , 05/13/2025 09:45:00 AM, [address] [facility] [address], [place], [address], Insurance Providers Payer Name Payer Address Payer Phone Subscriber Number Group Number Insured Name Patient Relationship to Insured Coverage Start Date Coverage End Date [employer] [place] [employer] [address] [place] [address] [id number] Ramin Canales Self - patient is the insured 4 Medical (General) History Medical History History ICD Code Diabetic Hiatal hernia High blood pressure Reflux ( GERD) Measles Mumps Chicken pox Gallstones Surgical History Surgery Date(Month/Year) colonoscopy 07/2021 Hospitalization History Reason Date(Month/Year) Urology testing 09/25/19 CT Scan 09/18/19
[2025-03-19 09:51] VITALS: BP 142/62
== END 2025-03-19 10:24 | disposition home or self-care (01) ==
LOC: HO.HMCH 09:16
DX: Z00.00 Encounter for general adult medical examination without abnormal findings (principal); E11.69 Type 2 diabetes mellitus with other specified complication; I10 Essential (primary) hypertension; E78.5 Hyperlipidemia, unspecified; E55.9 Vitamin D deficiency, unspecified; K76.0 Fatty (change of) liver, not elsewhere classified; R33.9 Retention of urine, unspecified; N52.1 Erectile dysfunction due to diseases classified elsewhere; Z23 Encounter for immunization

== ENCOUNTER → 2025-03-19 09:15 | Outpatient (BNVA) | payer MEDICARE, SELFPAY | DX: Z00.00 Encounter for general adult medical examination without abnormal findings (principal); I10 Essential (primary) hypertension; E11.9 Type 2 diabetes mellitus without complications; E78.5 Hyperlipidemia, unspecified; K83.1 Obstruction of bile duct; E55.9 Vitamin D deficiency, unspecified; K76.0 Fatty (change of) liver, not elsewhere classified; R33.9 Retention of urine, unspecified; E11.69 Type 2 diabetes mellitus with other specified complication; E11.42 Type 2 diabetes mellitus with diabetic polyneuropathy; N52.1 Erectile dysfunction due to diseases classified elsewhere; Z23 Encounter for immunization | CPT/HCPCS: 90471; 90472; 90677; 90714; 99397 ==

== ENCOUNTER 2025-04-30 10:30 | Outpatient (AMB) | payer MEDICARE, SELFPAY ==
--- OUTSIDE RECORDS SUMMARY | 2024-08-02 05:30 | XMS_ITS ---
Author Organization [facility] Address [address] [place] [address] Care Team Providers Care Peer Health Promoter Name Role Phone Yessenia SPAIN, Polo Primary Care Provider Unavaila Osvaldo Frazier Unavailable [phone] Fairchild Encounters Encounter Location Date Provider Diagnosis [facility] [address] 08/02/2024 Osvaldo Carrillo Plan Of Treatment Next Appt Details Provider Name:Osvaldo Carrillo , 05/13/2025 09:45:00 AM, [facility] [address], [address], Progress Notes * Ramin PEREIRA LDOB:[birth year] (74 yo M)Acc No.[id number]:08/02/2024 Progress Note Patient: Ramin LOPES Provider: Luis Carrillo DPM :1950 A ge:74 Y S ex:Male Date:08/02/2024 Address:[address] [place] [phone] Pcp:Polo Casas MD Subjective: * Chief Complaints: * [address] Fairchild. * Medical History: Objective: * Vitals: Assessment: Plan: * Treatment: * Images: * The named appointment provid er may or may not be the originator of this progress note, and it is not deemed complete until electronically signed by the appointment provider. Sign off status: Pending * Provider: Luis Carrillo DPM Date: 1 10/03/2023 Generated for Denis Spaulding on: 0 04/30/2025 12:48 PM EDT
--- NOTE | 2025-04-30 10:31 | MHC.OFFVIS ---
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 They are a patient of Dr Casas. . He is seen for the following urologic conditions - lower urinary tract symptoms - erectile dysfunction Current PVR 600. Previously 60. Known large bladder diverticulum. Remains on finasteride Tuesday, Tuesday, Tuesday - Continue daily tadalafil 5 mg Have previously recommended GreenLight laser prostatectomy with bladder diverticula laser Printed information provided Poorly controlled diabetic He would like to continue surveillance Lower Urinary Tract Symptoms: Did well with combination therapy - finasteride, tamsulosin PSA 02/25 0.2, 03/29 0.3 Will continue Nocturia reduced from 1-2 times from 3-4. Current visit is for further evaluation of, lower urinary tract symptoms, predominate obstructive symptoms. Prostate Symptom Score Moderate (9-19), Bother 3. Symptoms include incomplete emptying, weak stream, nocturia (>2), and are improving Erectile dysfunction in setting of diabetes Switch to daily tadalafil Responsive to sildenafil Associated diabetes, and dyslipidemia, and hypertension HBA1c - 12/28 8.2% Microscopic Hematuria: Microscopic hematuria was diagnosed during routine UA - probable UTI. They are here for further evaluation. Relevant medical history for prior , tobacco use and UTI's Radiographic imagin/20 , CT KUB - multiple bladder diverticula, enlarged prostate, cyst on right kidney 2 cm. Cystoscopy findings 09/27 large prostate, multiple bladder diverticula [facility] Medical History COVID-19 vaccine series completed HTN (hypertension) Thalassemia trait Hiatal hernia GERD (gastroesophageal reflux disease) Type 2 diabetes with nephropathy Diabetes type 2, uncontrolled Gallstones BPH (benign prostatic hyperplasia) Hyperlipidemia LDL goal <100 Hypovitaminosis D Diabetes mellitus Erectile dysfunction Essential hypertension Surgical History H/O colonoscopy Family History Father No problems noted. Mother No problems noted. Sister Diabetes Brother Diabetes Social History Household Members: Spouse Housing: House Alcohol intake: current Alcohol intake frequency: holidays/special occasions only Patient Tobacco Use Status: Never used Tobacco Tobacco use type: Cigarette e-Cigarette/Vaping Use: Never Used Second Hand Smoke Exposure: No Advance Directives Date on File: 10/04/04 service: Yes Current occupational status: retired Cognitive needs: No Hearing needs: No Vision needs: Yes (glasses) Review of Systems Const Denies chills and Denies fever(s) Card Reports no additional complaints and Denies syncope Resp Denies cough GI Denies abdominal pain and Denies heartburn Reports as per HPI and Denies change in libido Neuro Denies syncope Psych Denies change in libido Endo Denies change in libido Physical Exam Const General: cooperative, healthy appearing, comfortable and no acute distress Orientation/consciousness: patient oriented x3 HEENT Face and sinus: Yes normal facial exam Mouth: moist mucous membranes Neck Neck: Yes normal visual inspection, Yes full ROM and Yes trachea midline Chest Chest palpation & inspection: normal inspection of the chest Resp Effort & Inspection: normal respiratory effort, able to speak in complete sentences and no respiratory distress GI Inspection: Yes normal to inspection Back/Spine/Pelvis Cervical Spine: normal cervical lordosis Thoracic/Lumbar Spine: thoracic and lumbar spine normal to inspection Skin General skin exam: no rashes or lesions noted Neuro General: patient oriented x3, gait normal, tone normal and moves all extremities Extrem General: Yes normal to inspection and Yes capillary refill normal Office Procedures Post Void Residual Post Residual Void Post Void Residual (PVR): 616 38141-Mypf Void Residual by ultrasound Results AMB Urinalysis, Automated UA Leukoctes 125 Sandhya/uL Last Edit by ADRIANA Sanders on 04/30/25 10:47 UA Nitrite Last Edit by ADRIANA Sanders on 04/30/25 10:47 UA Urobilinogen 0.2 mg/dL Last Edit by ADRIANA Sanders on 04/30/25 10:47 UA Protein 15 mg/dL Last Edit by ADRIANA Sanders on 04/30/25 10:47 UA pH 6.0 Last Edit by Yandy Boss, [facility] on 04/30/25 10:47 UA Blood 0 Sudeep/uL Last Edit by Yandy Boss [facility] on 04/30/25 10:47 UA Specific [place] 1.015 Last Edit by Yandy Boss [facility] on 04/30/25 10:47 UA Ketone Last Edit by Yandy Boss [facility] on 04/30/25 10:47 UA Bilirubin 0 mg/dL Last Edit by Yandy Boss, [facility] on 04/30/25 10:47 UA Glucose 0 mg/dL Last Edit by Yandy Boss [facility] on 04/30/25 10:47 Results Reviewed Results Reviewed: Laboratory Last Values Urine pH (Auto) 6.0 04/30/25 10:46 Specific [place] (Auto) 1.015 04/30/25 10:46 Urine Protein (Auto) 15 mg/dL 04/30/25 10:46 Glucose (UA)(Auto) 0 mg/dL 04/30/25 10:46 Urine Blood (Auto) 0 Sudeep/uL 04/30/25 10:46 Urine Bilirubin (Auto) 0 mg/dL 04/30/25 10:46 Urine Urobilinogen (Auto) 0.2 mg/dL 04/30/25 10:46 Leukocyte Esterase (Auto) 125 Sandhya/uL 04/30/25 10:46 Assessment & Plan Assessment & Plan (1) Bladder diverticulum: Code(s): N32.3 - Diverticulum of bladder Category: Medical (2) Bladder outlet obstruction: Code(s): N32.0 - Bladder-neck obstruction Category: Medical (3) Urinary retention with incomplete bladder emptying: Code(s): R33.9 - Retention of urine, unspecified Category: Medical Plan Six-month follow-up PVR Orders: Orders AMB Post Void Residual by ultrasound Today R33.9 - Retention of urine, unspecified AMB Urinalysis Automated Today Z13.9 - Encounter for screening, unspecified Patient Instructions: This note is constructed using voice recognition software. While every effort has been made to ensure accuracy belt dresser errors may have been included. Imaging studies, laboratory and physical exam results were discussed and reviewed in detail. No major barriers to patient understanding were identified. An opportunity to ask questions regarding the treatment plan was provided. All questions were answered. The patient expressed understanding and agreement with the above treatment plan. The patient is aware they should contact our office by phone for worsening of their current condition or the appearance of new urologic symptoms. Compliance is encouraged with any medications and followup testing that is ordered. It is a privilege to participate in the urologic care of your patient. If you have any questions or concerns regarding treatment for the above conditions, or other urologic issues, please do not hesitate to contact me. The office telephone contact is [phone]. Sincerely, Dr Tray Farias MD, [facility] - Urology Compassionate Specialist Care for the Genitourinary System Coding Level of Care Code Est Pt Level 3 (73254) Complex EM visit Add On G2211 Diagnoses Bladder diverticulum N32.3 Bladder outlet obstruction N32.0 Urinary retention with incomplete bladder emptying R33.9 CPT Codes Post Residual Void - PVR CPT Code: 59098-Peov Void Residual by ultrasound ([id number])
--- OUTSIDE RECORDS SUMMARY | 2025-04-30 12:49 | XMS_ITS | Patient Health Record ---
[facility] Organization [facility] Address [address] [place] [address] Care Team Providers Care Clinical Program Manager Name Role Phone Polo Casas MD Primary Care Provider Osvaldo Cheung Unavailable [phone] Allergies Allergen (clinical drug ingredient) Drug/Non Drug Allergy documented on EMR Reaction Allergy Type Onset Date Status hydrochlorothiazide Hydrochlorothiazide raises b lood pressure Drug Allergy Active lisinopril Lisinopril tongue swelling Drug Allergy Active Results Component Value Reference Range Notes HEMOGLOBIN A1C (GLYCOHEMOGLO BIN) Reviewed date:08/13/2024 03:09:16 [...] Problem Acquired hammer toe of right foot (66888702117023 05) Other hammer toe(s) (acquired), right foot (M20.41) Active confirmed Response to treatment,I mprovement Problem Acquired hammer toe of left foot (52131500681366 03) Other hammer toe(s) (acquired), left foot (M20.42) Active confirmed Response to treatment,I mprovement Problem Type II diabetes mellitus without complication (214987374) Type 2 diabetes mellitus without complication (E11.9) Active confirmed Vital Signs Heart Rate 65 /min 02/14/2025 Blood pressure diastolic 80 mm Hg 02/14/2025 Height 5ft 11in in 02/14/2025 Blood pressure systolic 159 mm Hg 02/14/2025 Weight 204 lbs 02/14/2025 BMI 28.45 kg/m2 02/14/2025 Procedures Procedure Date Ordered Date Performed Result Body Sit e 49722-UFQLELY NAIL, 6 OR MORE 08/13/2024 N/A 89147-OVOZWMX NAIL, 6 OR MORE 11/12/2024 N/A 16152-MBYELQT NAIL, 6 OR MORE 02/14/2025 N/A Encounters Encounter Location Date Provider Diagnosis [address] [address] 08/13/2024 Osvaldo Carrillo Tinea unguium B35.1 ; Pain in right toe(s) M79.674 ; Pain in left toe(s) M79.675 ; Type 2 diabetes mellitus without complication E11.9 ; Other hammer toe(s) (acquired), right foot M20.41 and Other hammer toe(s) (acquired), left foot M20.[address] [address] 11/12/2024 Osvaldo Carrillo Tinea unguium B35.1 ; Pain in right toe(s) M79.674 ; Pain in left toe(s) M79.675 and Type 2 diabetes mellitus without complication E11.[address] [address] 02/14/2025 Osvaldo Carrillo Tinea unguium B35.1 ; Pain in right toe(s) M79.674 ; Pain in left toe(s) M79.675 ; Type 2 diabetes mellitus without complication E11.9 and Tinea pedis of both feet B35.3 Assessments Encounter Date Diagnosis (ICD Code) Assessment Notes Treatment Notes Treatment Clinical Notes Section Notes 08/13/2024 Tinea unguium (ICD-10 - B35.1) 08/13/2024 [...] in left toe(s) (ICD-10 - M79.675) 08/13/2024 Type 2 diabetes mellitus without complication [...] Treatment Pending Test Test Name Order Date 35049-VHEYXTA NAIL, 6 OR MORE 06/27/2019 94442-RASFGWF NAIL, 6 OR MORE 09/27/2019 39322-LBIVJBV NAIL, 6 OR MORE 12/27/2019 24414-NCMDVSW NAIL, 6 OR MORE 03/27/2020 44446-CXRTOQV NAIL, 6 OR MORE 06/25/2020 38635-JTSNDLR NAIL, 6 OR MORE 09/25/2020 99236-CAKWDBJ NAIL, 6 OR MORE 12/25/2020 17830-IEMBCZM NAIL, 6 OR MORE 03/26/2021 37638-SVLBSWK NAIL, 6 OR MORE 06/25/2021 63210-WYYUSEC NAIL, 6 OR MORE 10/01/2021 92299-ZYHWDYB NAIL, 6 OR MORE 12/23/2021 41891-CWQMQQZ NAIL, 6 OR MORE 04/05/2022 71752-KYQAYKM NAIL, 6 OR MORE 07/07/2022 55436-[id number] NAIL, 6 OR MORE 10/06/2022 94776-BJINVOK NAIL, 6 OR MORE 01/06/2023 71522-LJSRPGD NAIL, 6 OR MORE 04/14/2023 20242-UIKOOLD NAIL, 6 OR MORE 07/21/2023 04364-AWACJLF NAIL, 6 OR MORE 10/27/2023 29872-[id number] NAIL, 6 OR MORE 01/26/2024 65391-SEJJHRR NAIL, 6 OR MORE 04/26/2024 61924-VCIHACF NAIL, 6 OR MORE 08/13/2024 03376-JWPMAUX NAIL, 6 OR MORE 11/12/2024 23253-SNGWXOZ NAIL, 6 OR MORE 02/14/2025 Next Appt Details Provider Name:Osvaldo Carrillo , 05/13/2025 09:45:00 AM, [address] [facility], [address], [place], [address], Insurance Providers Payer Name Payer Address Payer Phone Subscriber Number Group Number Insured Name Patient Relationship to Insured Coverage Start Date Coverage End Date [employer] [address] [place] [address] [id number] Ramin Canales Self - patient is the insured 4 Medical (General) History Medical History History ICD Code Diabetic Hiatal hernia High blood pressure Reflux ( GERD) Measles Mumps Chicken pox Gallstones Surgical History Surgery Date(Month/Year) colonoscopy 07/2021 Hospitalization History Reason Date(Month/Year) Urology testing 09/25/19 CT Scan 09/18/19
--- OUTSIDE RECORDS SUMMARY | 2025-04-30 12:49 | XMS_ITS | Patient Health Record ---
Author Organization [facility] Address [address] [place] [address] Care Team Providers Care Life Guard Name Role Phone Yessenia SPAIN, Polo Primary Care Provider Cornelio Serna Jr Allergies Allergen (clinical drug ingredient) Drug/Non Drug [...] Problem Status W/U Status Risk Notes Problem 940846854 Colon cancer screening (Z12.11) Active confirmed Problem 186423589 [facility] current use of aspirin (Z79.82) Active confirmed Problem 877636017 Encounter for long-term (current) use of other high-risk medications (Z79.899) Active confirmed Problem 832047401 Personal history of colonic polyps (Z86.010) Active confirmed Problem 171170037 Long-term use of aspirin therapy (Z79.82) Active confirmed Plan Of Treatment Future Test Test Name Order Date COLONOSCOPY 10/09/2015 COLONOSCOPY 06/22/2021 Insurance Providers Payer Name Payer Address Payer Phone Subscriber Number Group Number Insured Name Patient Relationship to Insured Coverage Start Date Coverage End Date [facility] [address] [place] [phone] [id number] ERNESTINE PEREIRA Self - patient is the insured Medical (General) History Medical History History ICD Code Colonoscopy 01/21, limited pr ep, no polyps, five-year followup, and previous history of tubular adenomas gerd hiatal hernia Thalassemia trait type II diabetes Hypertension Elevated cholesterol BPH Surgical History Surgery Date(Month/Year)
== END 2025-04-30 11:24 | disposition home or self-care (01) ==
LOC: HO.HUSH 10:31
PROVIDERS: PCP Internal Medicine; Visit Provider Urology
DX: N32.3 Diverticulum of bladder (principal); N32.0 Bladder-neck obstruction; R33.9 Retention of urine, unspecified; Z13.9 Encounter for screening, unspecified
CPT/HCPCS: 99213; G2211

== ENCOUNTER → 2025-04-30 10:30 | Outpatient (BNVA) | payer MEDICARE, SELFPAY | PROVIDERS: PCP Internal Medicine; Visit Provider Urology | DX: N32.3 Diverticulum of bladder (principal); N32.0 Bladder-neck obstruction; R33.9 Retention of urine, unspecified | CPT/HCPCS: 51798; 81003; 99212 ==

== ENCOUNTER 2025-06-18 08:56 | Outpatient (AMB) | payer MEDICARE, SELFPAY ==
--- OUTSIDE RECORDS SUMMARY | 2024-08-02 04:30 | XMS_ITS ---
[facility] Address [address] [place] [address] Care Team Providers Care Cook Supervisor Name Role Phone Cheryl Leslie Primary Care Provider Unavailab Osvaldo Finch Unavailable [phone] Fairchild Encounters Encounter [facility] Date [facility] [address] [facility]/02/[facility] Osvaldo Carrillo Plan Of Treatment Next Appt Details Provider Name:Osvaldo Carrillo , 09/02/2025 10:15:00 AM, [facility] [address], [address], Progress Notes * Ramin PEREIRA LDOB:[birth year] (74 yo M)Acc No.[id number]:08/02/2024 Progress Note Patient: Ramin LOPES Provider: Luis Carrillo DPM :1950 A ge:74 Y S ex:Male Date:08/02/2024 Address:[address] [place] [id number] Pcp:Cheryl Leslie Subjective: * Chief Complaints: * [address] Fairchild. * Medical History: Objective: * Vitals: Assessment: Plan: * Treatment: * Images: * The named appointment provid er may or may not be the originator of this progress note, and it is not deemed complete until electronically signed by the appointment provider. Sign off status: Pending * Provider: Luis Carrillo DPM Date: 10/03/2023 Generated for Denis Spaulding on: 08/18/2024 09:23 AM EST
[2025-06-18 08:59] VITALS: BP 150/70; PULSE 73; TEMP 36.2; O2SAT 93; BMI 29.6
--- NOTE | 2025-06-18 08:59 | A.OFFPC_ITS ---
Vital Signs 06/18/25 08:59 06/18/25 09:33 Height 5 ft 11 in Weight 212 lb 2 oz BMI 29.6 BP 150/70 H 148/70 H Blood Pressure Location Lt brachial Lt brachial Position Sitting Sitting Pulse 73 Pulse Source Pulse Oximeter Temp 97.1 F Temp Source Temporal Artery Scan Pulse Oximetry (%) 93 Oxygen Delivery Method Room Air Intake Visit Reasons: f/u DM w/ A1c Electric Brain Wave Equipment Mechanic Required: No Accompanied by: Self / Same As Patient Allergies SHOAIB Inhibitors Allergy (Intermediate, Verified 06/18/25 09:09) swelling of tongue Medication List - Last Reconciled 06/18/25 by Cheryl Leslie PA-C amlodipine 10 mg PO DAILY aspirin 81 mg PO DAILY atorvastatin 20 mg PO DAILY blood sugar diagnostic (FreeStyle Lite Strips) 1 strip miscellaneous BID-TID cholecalciferol (vitamin D3) 50 mcg PO DAILY finasteride 5 mg PO DAILY 90 days folic acid 0.4 mg PO DAILY lancets (FreeStyle Lancets) three times a day losartan 50 mg PO DAILY metformin ER 1,000 mg (2 x 500 mg) PO BID omeprazole 20 mg PO DAILY repaglinide 1-2 tab before lunch, 1-3 tabs before dinner PO once; as directed 90 days sitagliptin phosphate (Januvia) 25 mg PO DAILY tadalafil 5 mg PO DAILY 90 days tamsulosin 0.4 mg PO BEDTIME 90 days Tobacco use date assessed: 06/18/25 Fall risk assessment: No Falls in past year Last assessed Fall Risk: 03/19/25 Dental Screening Dental Screen Date: 06/18/25 Did you have a dental visit in the last 12 months?: Yes Did you have a dental problem in the last 6 months where you did not have access to dental care?: No Was dental information given to patient?: Patient has dentist HPI f/u DM w/ A1c 2 HPI Details 74-year-old male with past medical histo ry of diabetes mellitus, hyperlipidemia, hypertension, hepatic steatosis and cholelithiasis last seen 03/2025 coming in for follow up.? In review of the notes, plan for repeat PVR in 6 months with follow up. Presenting for follow-up and management of hypertension and type 2 diabetes. For his hypertension, the patient reports he has not been checking his blood pressure as often at home. When he does check it, readings are variable, with systolic pressures ranging from 130 mmHg to 148 mmHg. His blood pressure was also elevated at his last visit. For his type 2 diabetes, he reports checking his blood sugars at home, which have been pretty good. His blood sugar this morning was 133 mg/dL, and he has had readings in the 70s without feeling any symptoms of hypoglycemia. The patient reports new discomfort on his right hip, which started about two to three weeks ago. The discomfort is noticeable but not debilitating and subsides with OTC NSAIDs. He denies experiencing this pain before starting Januvia and is concerned it may be a side effect. FORMERLY [facility], [facility] Medical History COVID-19 vaccine series completed HTN (hypertension) Thalassemia trait Hiatal hernia GERD (gastroesophageal reflux disease) Type 2 diabetes with nephropathy Diabetes type 2, uncontrolled Gallstones BPH (benign prostatic hyperplasia) Hyperlipidemia LDL goal <100 Hypovitaminosis D Diabetes mellitus Erectile dysfunction Essential hypertension Surgical History H/O colonoscopy Family History Father No problems noted. Mother No problems noted. Sister Diabetes Brother Diabetes Social History Household Members: Spouse Housing: House Alcohol intake: current Alcohol intake frequency: holidays/special occasions only Patient Tobacco Use Status: Never used Tobacco Tobacco use type: Cigarette e-Cigarette/Vaping Use: Never Used Second Hand Smoke Exposure: No Advance Directives Date on File: 10/04/04 service: Yes Current occupational status: retired Cognitive needs: No Hearing needs: No Vision needs: Yes (glasses) Questionnaire PHQ-9 Over the last 2 weeks, how often have you been bothered by any of the following problems? 1. Little interest or pleasure in doing things: not at all 2. Feeling down, depressed, or hopeless: not at all 3. Trouble falling or staying asleep, or sleeping too much: not at all 4. Feeling tired or having little energy: not at all 5. Poor appetite or overeating: not at all 6. Feeling bad about yourself - or that you are a failure or have let yourself or your family down: not at all 7. Trouble concentrating on things, such as reading the newspaper or watching television: not at all 8. Moving or speaking so slowly that other people could have noticed. Or the opposite - being so fidgety or restless that you have been moving around a lot more than usual: not at all 9. Thoughts that you would be better off or of hurting yourself in some way: not at all Total score: 0 Depression Screening Interpretation: Negative Depression Screening Done: Yes Source: Developed by Drs. Blake Thomas, Audelia Caal, Alexei Johnson and colleagues, with an educational alex from [employer]. Thrive Questionnaire Date Thrive assessed: 06/18/25 I am a: Patient What is your living situation today?: I have a steady place to live Within the past 12 months, did the food you bought not last and you didn't have the money to get more?: I choose not to answer this question Within the past 12 months, did you worry whether your food would run out before you got money to buy more?: Never true Do you have trouble paying for medicines?: No Do you have trouble getting transportation to medical appointments?: No Do you have trouble paying your heating and electricity bill?: No Do you have trouble taking care of your child, family member or friend?: No Do you have trouble with day-to-day activities such as bathing, preparing meals, shopping, managing finances, etc.?: No Are you currently unemployed and looking for a job?: No Are you interested in more education?: No Please select the resources that you would like help with: None Currently or been in a relationship where the following occur: I choose not to answer THRIVE Score: 0 AUDIT C Alcohol Use Questionnaire (AUDIT-C) 1. How often do you have a drink containing alcohol?: Monthly or less Total Score: 1 DREW-7 AMB Questionnaire DREW-7 Date DREW - 7 assessed: 06/18/25 Feeling nervous, anxious, or on edge: 0 = Not at all Not being able to stop or control worryin = Not at all Worrying too much about different things: 0 = Not at all Trouble relaxin = Not at all Being so restless that it is hard to sit still: 0 = Not at all Becoming easily annoyed or irritable: 0 = Not at all Feeling afraid as if something awful might happen: 0 = Not at all Total DREW-7 score (0-4 normal; 5-9 mild; 10-14 moderate; 15-21 severe): 0 Source: Developed by Drs. Blake Thomas, Audelia Caal, Alexei Johnson and colleagues, with an educational alex from [employer]. Review of Systems Const Denies body aches, Denies chills, Denies fever(s), Denies headache(s) and Denies poor appetite Eyes Reports no additional complaints ENT Denies dizziness and Denies headache(s) Card Denies chest pain, Denies edema, Denies lightheadedness and Denies dyspnea Resp Denies dyspnea GI Denies abdominal pain, Denies nausea and Denies vomiting Reports no additional complaints Musc Reports no additional complaints and Denies abnormal gait Skin/Breast Reports system reviewed and no additional complaints, except as documented Neuro Denies abnormal gait, Denies dizziness and Denies headache(s) Psych Reports no additional complaints Physical exam (Primary Care) Vital Signs: Last Vital Signs Temp 97.1 F 06/18/25 08:59 Pulse 73 06/18/25 08:59 BP 148/70 H 06/18/25 09:33 Pulse Ox 93 06/18/25 08:59 Oxygen Delivery Method Room Air 06/18/25 08:59 BMI result Body Mass Index 29.6 Tobacco/Smoking Status: Tobacco use Status Tobacco use date assessed 06/18/25 06/18/25 09:01 Patient Tobacco Use Status Never used Tobacco 06/18/25 09:01 Tobacco use type Cigarette 06/18/25 09:01 e-Cigarette/Vaping Use Never Used 06/18/25 09:01 PHQ-9: PHQ-9 Score PHQ-9: Total score 0 06/18/25 09:17 Depression Screening Interpretation: Negative Thrive Assessment: Date of Thrive Assessment Date Thrive assessed 06/18/25 06/18/25 09:01 Currently or been in a relationship where the following occur: I choose not to answer Const General: cooperative, healthy appearing, comfortable and no acute distress Orientation/consciousness: patient oriented x3 HENMT Head: Yes normocephalic Ears: hearing grossly normal bilaterally General nose exam: Normal external nose present Eyes General: appearance normal, both eyes and all related structures Conjunctivae: conjunctivae normal Neck Neck: Yes full ROM and Yes no lymphadenopathy Resp Effort & Inspection: normal respiratory effort Auscultation: clear to auscultation bilaterally, no crackles, no rales, no rhonchi and no wheezes Cardio Rate: regular rate Rhythm: regular rhythm Skin General skin exam: no rashes or lesions noted Neuro General: patient oriented x3 Gait exam (Neuro): Normal gait present Extrem General: Yes normal to inspection, Yes full ROM and No edema Psych Affect: normal affect Attitude: cooperative Insight: Good insight present (Psych) Judgement: Good judgement present (Psych) Results AMB Hemoglobin A1c AMB Hemoglobin A1c 8.3 % Last Edit by CANDACE Hidalgo on 06/18/25 09:42 Results Reviewed Results Reviewed: Laboratory Last Values Hgb A1c (Clinic) 8.3 % (4.0-6.0) H 06/18/25 09:13 Coding Level of Care Code Est Pt Level 3 (67248) Diagnoses Essential hypertension I10 Hyperlipidemia LDL goal <100 E78.5 Diabetes mellitus with coincident hypertension E11.9; I10 Hepatic steatosis K76.0 Urinary retention with incomplete bladder emptying R33.9 Right hip pain M25.551 Assessment & Plan Assessment & Plan (1) Essential hypertension: Code(s): I10 - Essential (primary) hypertension Category: Medical Plan: Continue on current blood pressure medication. Avoid salt intake and encourage healthy diet and regular exercise. Blood pressure is elevated in the office once again and he has not been consistently taking blood pressures at home. Plan to increase losartan to 75 mg daily and patient encouraged to monitor blood pressure at home. (2) Hyperlipidemia LDL goal <100: Code(s): E78.5 - Hyperlipidemia, unspecified Category: Medical Plan: Avoid foods that are high in cholesterol such as red meat, fried foods, eggs and baked goods. Triglyceride goal of less than 150 and LDL goal of less than 100. Continue on atorvastatin 20 mg. LDL at goal on last labs (3) Diabetes mellitus with coincident hypertension: Code(s): E11.9 - Type 2 diabetes mellitus without complications; I10 - Essential (primary) hypertension Category: Medical Plan: Decrease the amount of carbohydrates such as pasta, bread, rice, and potatoes and limit the amount of sweets. Although fruits are generally healthy they should be eaten in moderation as they are still high in sugar. Hemoglobin A1c goal of less than 7%. A1c in the office today 8.3% still above his goal of less than 7%. At this time we will adjust his dosage of the repaglinide 2 mg TID for better control of sugars. He will monitor the blood sugars at home and if he has symptomatic lows to reach out to the office. (4) Hepatic steatosis: Comment: May 2024 Cholelithiasis, biliary sludge and gallbladder wall thickening tip 8 mm. Correlate clinically for cholecystitis. 2. Hepatic steatosis. 3. 2.1 cm septated left upper pole renal cyst. 4.Nonvisualization of the pancreas and proximal aorta. Code(s): K76.0 - Fatty (change of) liver, not elsewhere classified Category: Medical Plan: Healthy diet and regular exercise is encouraged. (5) Urinary retention with incomplete bladder emptying: Code(s): R33.9 - Retention of urine, unspecified Category: Medical Plan: Patient is currently on finasteride 5 mg and tamsulosin. Continue to follow with Urology (6) Right hip pain: Code(s): M25.551 - Pain in right hip Category: Medical Plan: The patient reported new-onset side and hip discomfort starting 2-3 weeks ago. The possibility of this being a side effect of Januvia was discussed, though it is considered a rare occurrence and more likely related to arthritis. For now, the plan is to continue Januvia and monitor the symptoms. If the pain becomes worse or more bothersome, we can stop the medication to see if symptoms improve. Consider imaging. Plan This note was constructed using voice recognition software. While every effort has been made to ensure accuracy and marketing research intern, still areas may have been included sometimes these areas may affect the content or meeting of the given symptoms. Total time spent caring for the patient today was 20 minutes. This includes time spent before the visit reviewing the chart, time spent during the visit, and time spent after the visit and documentation. Patient was informed and verbally consented to the use of an ambient scribe for clinic note documentation during this visit. Orders: Orders AMB Hemoglobin A1c Today E11.21 - Type 2 diabetes mellitus with diabetic nephropathy Medications: New losartan 75 mg (1.5 x 50 mg) PO DAILY 135 tabs 2RF 90 days repaglinide administer within 30 minutes of a meal or snack 2 mg PO TID 270 tabs 1RF 90 days Refilled sitagliptin phosphate (Januvia) 25 mg PO DAILY 90 tabs 2RF Discontinued repaglinide Discontinued Reason: Patient no longer taking 1-2 tab before lunch, 1-3 tabs before dinner PO once; as directed 90 days 360 tabs 8RF E11.9 - Type 2 diabetes mellitus without complications losartan Discontinued Reason: Patient no longer taking 50 mg PO DAILY 90 tabs 1RF
--- OUTSIDE RECORDS SUMMARY | 2025-06-18 09:23 | XMS_ITS | Patient Health Record ---
[facility] Address [address] [place] [address] Care Team Providers Care Landscape Specialist Name Role Phone Cheryl Leslie Primary Care Provider Unavailab Osvaldo Finch Unavailable [phone] Allergies Allergen (clinical drug ingredient) Drug/Non Drug [...] Lab: Notes/Report: HEMOGLOBIN A1C % (HH) 7 HEMOGLOBIN A1C (GLYCOHEMOGLO BIN) Reviewed date:05/13/2025 10:09:38 AM Interpretation: Performing Lab: Notes/Report: HEMOGLOBIN A1C % (HH) 7.7 Reason For Referral No Information Medications Medication SIG (Take, Route, Frequency, Duration) Notes Start Date End Date Status amLODIPine Besylate 5 MG Orally Active Tadalafil Active Repaglinide 0.5 MG Orally A ctive Januvia 25 MG as directed Orally Active Vitamin D3 Active Tamsulosin HCl Activ e Omeprazole 20 MG Orally Act anthony metFORMIN HCl 500 MG Orally twice a day Active Losartan Potassium 50mg once daily Active Folic Acid 400 MCG 1 tablet Orally Once a day Active Finasteride Active Atorvastatin Calcium 20 MG Orally Active Aspirin 325 MG Orally Activ e Ketoconazole 2 % 1 application Apply a thin layer to externally to feet, even between toes Twice a day; Duration: 30 days Active Extra Depth Orthopedic Shoes (1 Pair) with Customized Heat Molded Multidensity Innersoles (3 Pair) as directed Dx: NIDDM (E11.9), Hammertoe Foot Deformity (M20.41,M20.42), Preulcerative Skin Lesion(s) (L85.1) 01/26/2024 Active Immunizations Vaccine Route Administration Date Status [...] Answer Notes Did you have a drink containing alcohol in the p ast year? No Points 0 Interpretation Negative Problems Problem Type SNOMED Code ICD Code Onset Dates Problem Status W/U Status Risk Notes Problem Acquired hammer toe of right foot (41649025502702 05) Other hammer toe(s) (acquired), right foot (M20.41) Active confirmed Response to treatment,I mprovement Problem Acquired hammer toe of left foot (40452434812176 03) Other hammer toe(s) (acquired), left foot (M20.42) Active confirmed Response to treatment,I mprovement Problem Type II diabetes mellitus without complication (302800975) Type 2 diabetes mellitus without complication (E11.9) Active confirmed Vital Signs Heart Rate 65 /min 02/14/2025 Blood pressure diastolic 80 mm Hg 05/13/2025 Height 5ft 11in in 05/13/2025 Blood pressure systolic 159 mm Hg 05/13/2025 Weight 211 lbs 05/13/2025 BMI 29.43 kg/m2 05/13/2025 Procedures Procedure Date Ordered Date Performed Result Body Sit e 61671-[id number] NAIL, 6 OR MORE 08/13/2024 N/A [id number] NAIL, 6 OR MORE 11/12/2024 N/A [id number] NAIL, 6 OR MORE 02/14/2025 N/A [id number] NAIL, 6 OR MORE 05/13/2025 N/A Encounters Encounter Location Date Provider Diagnosis [address] [id number] 08/13/2024 Osvaldo Lorena Tinea unguium B35.1 ; Pain in right toe(s) M79.674 ; Pain in left toe(s) M79.675 ; Type 2 diabetes mellitus without complication E11.9 ; Other hammer toe(s) (acquired), right foot M20.41 and Other hammer toe(s) (acquired), left foot M20.[address] [address] 11/12/2024 Osvaldo Lorena Tinea unguium B35.1 ; Pain in right toe(s) M79.674 ; Pain in left toe(s) M79.675 and Type 2 diabetes mellitus without complication E11.[address] [address] 02/14/2025 Osvaldo Lorena Tinea unguium B35.1 ; Pain in right toe(s) M79.674 ; Pain in left toe(s) M79.675 ; Type 2 diabetes mellitus without complication E11.9 and Tinea pedis of both feet B35.[address] [address] 05/13/2025 Osvaldo Lorena Tinea unguium B35.1 ; Pain [...] Pain in right toe(s) (ICD-10 - M79.674) 05/13/2025 Tinea unguium (ICD-10 - B35.1) 05/13/2025 Pain in right toe(s) (ICD-10 - M79.674) 05/13/2025 Pain in left toe(s) (ICD-10 - M79.675) 02/14/2025 Pain in left toe(s) (ICD-10 - M79.675) 11/12/2024 Pain in left toe(s) (ICD-10 - M79.675) 08/13/2024 Pain in left toe(s) (ICD-10 - M79.675) 08/13/2024 Type 2 diabetes mellitus without complication (ICD-10 - E11.9) 11/12/2024 Type 2 diabetes mellitus without complication (ICD-10 - E11.9) 02/14/2025 Type 2 diabetes mellitus without complication (ICD-10 - E11.9) 05/13/2025 Type 2 diabetes mellitus without complication (ICD-10 - E11.9) 05/13/2025 Tinea pedis of both feet (ICD-10 - B35.3) 08/13/2024 Other hammer toe(s) (acquired), right foot (ICD-10 - M20.41) Response to treatment,Impro vement 08/13/2024 Other hammer toe(s) (acquired), left foot (ICD-10 - M20.42) Response to treatment,Impro vement 02/14/2025 Tinea pedis of both feet (ICD-10 - B35.3) Patient Educated with: ATHELETE .pdf (ATHELETE .pdf) Plan Of Treatment Pending Test Test Name Order Date [id number] NAIL, 6 OR MORE 06/27/2019 [id number] NAIL, 6 OR MORE 09/27/2019 [id number] NAIL, 6 OR MORE 12/27/2019 [id number] NAIL, 6 OR MORE 03/27/2020 [id number] NAIL, 6 OR MORE 06/25/2020 [id number] NAIL, 6 OR MORE 09/25/2020 [id number] NAIL, 6 OR MORE 12/25/2020 [id number] NAIL, 6 OR MORE 03/26/2021 [id number] NAIL, 6 OR MORE 06/25/2021 [id number] NAIL, 6 OR MORE 10/01/2021 [id number] NAIL, 6 OR MORE 12/23/2021 [id number] NAIL, 6 OR MORE 04/05/2022 [id number] NAIL, 6 OR MORE 07/07/2022 [id number] NAIL, 6 OR MORE 10/06/2022 [id number] NAIL, 6 OR MORE 01/06/2023 [id number] NAIL, 6 OR MORE 04/14/2023 [id number] NAIL, 6 OR MORE 07/21/2023 [id number] NAIL, 6 OR MORE 10/27/2023 [id number] NAIL, 6 OR MORE 01/26/2024 [id number] NAIL, 6 OR MORE 04/26/2024 [id number] NAIL, 6 OR MORE 08/13/2024 [id number] NAIL, 6 OR MORE 11/12/2024 [id number] NAIL, 6 OR MORE 02/14/2025 [id number] NAIL, 6 OR MORE 05/13/2025 Next Appt Details Provider Name:Osvaldo Carrillo , 09/02/2025 10:15:00 AM, [address] [facility], [facility] [address], [place], [address], Insurance Providers Payer Name Payer Address Payer Phone Subscriber Number Group Number Insured Name Patient Relationship to Insured Coverage Start Date Coverage End Date [employer] [address] [place] [address] [id number] Ramin Canales Self - patient is the insured 4 Medical (General) History Medical History History ICD Code Diabetic Hiatal hernia High blood pressure Reflux ( GERD) Measles Mumps Chicken pox Gallstones Surgical History Surgery Date(Month/Year) colonoscopy 07/2021 Hospitalization History Reason Date(Month/Year) Urology testing 09/25/19 CT Scan 09/18/19
--- OUTSIDE RECORDS SUMMARY | 2025-06-18 09:24 | XMS_ITS | Patient Health Record ---
Author Organization [facility] Address [address] [place] [id number] Care Team Providers Care Telecom Sales Consultant Name Role Phone Yessenia SPAIN, [place] Primary [...] at 5:00 p.m. the day before the procedure; Duration: 1 day 06/22/2021 Active Tamsulosin HCl 0.4 MG 1 capsule Orally O nce a day; Duration: 30 day(s) Active Finasteride 5 MG 1 tablet Orally Once a day; Duration: 30 day(s) Active Repaglinide 0.5 MG 1 tablet 15 to 30 mi nutes before meals Orally Twice a day; Duration: 30 day(s) Active Folic Acid 400 MCG 1 tablet Orally Once a day; Duration: 30 day(s) Active Atorvastatin Calcium 20 MG 1 tablet Oral ly Once a day; Duration: 30 day(s) Active amLODIPine Besy-Benazepril HCl 10-20 MG as directed Orally Active Losartan Potassium 50 MG 1 tablet Orally Once a day; Duration: 30 day(s) Active metFORMIN HCl 500 MG 1 tablet with meals Orally Twice a day Active Omeprazole 20 MG 1 tablet 30 minutes before morning meal Orally Active Aspirin Adult Low Dose Active Immunizations Vaccine Route Administration Date Status Comme nts Influenza Unknown 05/04/2021 Administered Problems Problem Type SNOMED Code ICD Code Onset Dates Problem Status W/U Status Risk Notes Problem Colon cancer screening (176350273) Colon cancer screening (Z12.11) Active confirmed Problem Already on aspirin (240611671) jail current use of aspirin (Z79.82) Active confirmed Problem Long-term current use of drug therapy (896528637) Encounter for long-term (current) use of other high-risk medications (Z79.899) Active confirmed Problem History of polyp of colon (situation) (338135305) Personal history of colonic polyps (Z86.010) Active confirmed Problem Long-term current use of antiplatelet drug (519504285368099 ) Long-term use of aspirin therapy (Z79.82) Active confirmed Plan Of Treatment Future Test Test Name Order Date COLONOSCOPY 10/09/2015 COLONOSCOPY 06/22/2021 Insurance Providers Payer Name Payer Address Payer Phone Subscriber Number Group Number Insured Name Patient Relationship to Insured Coverage Start Date Coverage End Date [facility] [address] [place] [phone] [id number] ERNESTINE PEREIRA Self - patient is the insured Medical (General) History Medical History History ICD Code Colonoscopy 01/21, limited pr ep, no polyps, five-year followup, and previous history of tubular adenomas gerd hiatal hernia Thalassemia trait type II diabetes Hypertension Elevated cholesterol BPH Surgical History Surgery Date(Month/Year)
[2025-06-18 09:33] VITALS: BP 148/70
== END 2025-06-18 09:41 | disposition home or self-care (01) ==
LOC: HO.HMCH 08:57
DX: I10 Essential (primary) hypertension (principal); E78.5 Hyperlipidemia, unspecified; E11.21 Type 2 diabetes mellitus with diabetic nephropathy; K76.0 Fatty (change of) liver, not elsewhere classified; R33.9 Retention of urine, unspecified; M25.551 Pain in right hip

== ENCOUNTER → 2025-06-18 08:56 | Outpatient (BNVA) | payer MEDICARE, SELFPAY | DX: E11.9 Type 2 diabetes mellitus without complications (principal); E78.5 Hyperlipidemia, unspecified; K76.0 Fatty (change of) liver, not elsewhere classified; I10 Essential (primary) hypertension; R33.9 Retention of urine, unspecified; M25.551 Pain in right hip | CPT/HCPCS: 83036; 96127; 99212 ==